=== PATIENT | female | born 1955 | race Caucasian/White ===

== ENCOUNTER 2021-03-10 14:44 | Inpatient (IN) ==
[2021-03-10] MEDS ORDERED: KETOROLAC 15 MG/ML VIAL IV ONE (15:40)
[2021-03-10] MEDS ORDERED: ONDANSETRON 4 MG/2 ML VIAL IV ONE (15:40)
[2021-03-10] MEDS ORDERED: 0.9 % SODIUM CHLORIDE 500 ML IV ONE ×2 (15:40→17:48)
[2021-03-10 16:44] LABS: POC Creatinine 6.2 mg/dL (0.6-1.2)
--- NOTE | 2021-03-10 17:37 | Emergency Department Note ---
HPI General Chief complaint: Shortness of Breath/Dyspnea Stated complaint: shortness of breath Time Seen by Provider: 03/10/21 15:05 Source: EMS Mode of arrival: EMS Limitations: no limitations History of Present Illness HPI Narrative: Narrative: Patient is a 65-year-old female who presented with chief complaint of multiple complaints. Patient states that over the past few days she has been having nausea, vomiting, and diarrhea. She then started having some body aches, chills, abdominal pain, and was feeling worse so she called 911 to be come in and be evaluated. She otherwise denies no significant symptoms such as fever, headache, neck stiffness, chest pain, shortness of breath, hematemesis, changes in bowel movements or urinary symptoms. Related Data Allergies Allergy/AdvReac Type Severity Reaction Status Date / Time No Known Drug Allergies Allergy Verified 03/10/21 14:51 Review of Systems ROS ROS Narrative: Narrative: All systems ED: reviewed and negative except as stated. [facility] Narrative Patient History Narrative: Narrative: Medical/Surgical/Family History All Active Problems (Updated 03/10/21 @ 20:14 by Huber Wang DO) Acute kidney failure (Acute) Elevated white blood cell count (Acute) Nausea and vomiting (Acute) Diarrhea (Acute) Acute dehydration (Acute) Social History Smoking Status: Never smoker Exam Narrative Narrative: Narrative: Patient is laying in bed, talking normally and appropriately. She does not appear to be in acute discomfort or distress. Patient is obese. General Limitations: no limitations Head Head: Present atraumatic and normocephalic Eye Eye: Present normal appearance, PERRL and EOMI; Absent scleral icterus and conjunctival injection ENT ENT: Present normal oropharynx and mucous membranes moist Neck Neck: Present full ROM and trachea midline; Absent tenderness and lymphadenopathy Chest Chest: Present symmetric chest wall rise Respiratory Respiratory: Present normal lung sounds bilaterally; Absent respiratory distress, rales/crackles, wheezes, stridor and accessory muscle use Cardiovascular Cardiovascular: Present regular rate and normal rhythm; Absent systolic murmur and diastolic murmur Adbominal Abdominal: Present soft; Absent tenderness, guarding, rebound, rigidity and mass Extremities Extremities: Absent pedal edema, pretibial edema and calf tenderness Back Back: Absent CVA tenderness (R), CVA tenderness (L) and spinous process tenderness Neurological Neurological: Present alert and oriented X3 Psychiatric Psychiatric: Present normal affect and normal mood Skin Skin: Present warm (WNL) and dry Course Vital Signs Vital signs: Vital Signs Pulse Rate 78 03/10/21 14:48 Respiratory Rate 18 03/10/21 14:48 Blood Pressure 123/53 03/10/21 14:48 Pulse Oximetry (%) 100 03/10/21 14:48 Pulse Rate 83 03/10/21 18:17 Respiratory Rate 14 03/10/21 17:34 Blood Pressure 93/50 03/10/21 16:17 Pulse Oximetry (%) 97 03/10/21 18:17 [facility] Narrative Medical decision making narrative: Narrative: Patient is a 65-year-old female who presented with chief complaint of nausea, vomiting, diarrhea. Vital signs here were stable, with no hypotension or significant tachycardia. Initial blood work showed a elevated creatinine of 6, and white blood count of 24,000. Subsequent fluids were started, and larger work-up was performed. Blood cultures and urine were ordered for possible sepsis, though my suspicion overall is low for severe sepsis. Chest x-ray was nonacute, abdominal CT scan was negative for any significant acute findings. Patient was started antibiotics due to the elevated white blood count and no definitive infectious findings, though her symptoms do sound to be viral in nature. Covid swab was negative. Due to the elevated creatinine, I did discuss the case with nephrology who stated the patient likely did not need emergent dialysis given the normal potassium and no other significant findings. He recommended admission and IV fluid hydration. I discussed case the hospitalist, who agrees the plan of admission at this time. Patient is agreeable to the plan and has no further concerns or questions. Of note, she states that she does not have any history of chronic kidney failure that she is aware of, and states that the last time she peed was yesterday morning. Lab Data Result diagrams: 03/10/21 16:25 03/10/21 16:25 Labs: Lab Results 03/10/21 03/10/21 03/10/21 Range/Units 16:25 16:25 16:25 WBC 24.6 H (4.5-11.0) K/mcL RBC 4.52 (3.59-5.38) M/mcL Hgb 12.9 (11.2-15.7) g/dL Hct 41.2 (34.1-44.9) % MCV 91.2 (80.0-100.0) fL MCH 28.5 (26.0-34.0) pg MCHC 31.3 (31.0-36.0) g/dL RDW 14.2 (11.5-14.5) % Plt Count 276 (140-440) K/mcL MPV 10.0 (7.4-10.4) fL Neut % (Auto) 70.6 (38.0-78.0) % Lymph % (Auto) 17.1 (15.5-49.0) % Cloud % (Auto) 12.0 (1.0-12.0) % Eos % (Auto) 0.1 (0.0-7.0) % Baso % (Auto) 0.2 (0.0-2.0) % Lymph # (Auto) 4.20 (1.50-4.80) K/mcL Cloud # (Auto) 2.94 H (0.10-0.90) K/mcL Eos # (Auto) 0.02 (0.00-0.70) K/mcL Baso # (Auto) 0.06 (0.00-0.30) K/mcL Absolute Neutrophils 17.33 H (1.80-8.00) K/mcL Sodium 132 L (133-145) mmol/L Potassium 4.6 (3.3-5.1) mmol/L Chloride 94 L (96-108) mmol/L Carbon Dioxide 17 L (22-30) mmol/L Anion Gap 21.0 H (8.0-16.0) BUN 57 H (8-23) mg/dL Creatinine 5.3 H* (0.6-1.1) mg/dL POC Creatinine 6.2 H* (0.6-1.2) mg/dL GFR Calculation 8 Glucose 103 (70-105) mg/dL Calcium 9.7 (8.6-10.4) mg/dL Total Bilirubin 0.5 (0.1-1.0) mg/dL AST 32 H (<32) U/L ALT 22 (<40) U/L Alkaline Phosphatase 164 H (39-117) U/L Troponin T 0.01 (<0.03) ng/mL C-Reactive Protein (0.03-0.80) mg/dL Total Protein 7.7 (5.9-8.4) gm/dL Albumin 4.0 (3.2-5.2) gm/dL Globulin 3.7 (2.2-3.7) gm/dL Albumin/Globulin Ratio 1.1 (1.0-2.3) Lipase 24 (7-60) U/L 03/10/21 Range/Units 16:25 WBC (4.5-11.0) K/mcL RBC (3.59-5.38) M/mcL Hgb (11.2-15.7) g/dL Hct (34.1-44.9) % MCV (80.0-100.0) fL MCH (26.0-34.0) pg MCHC (31.0-36.0) g/dL RDW (11.5-14.5) % Plt Count (140-440) K/mcL MPV (7.4-10.4) fL Neut % (Auto) (38.0-78.0) % Lymph % (Auto) (15.5-49.0) % Cloud % (Auto) (1.0-12.0) % Eos % (Auto) (0.0-7.0) % Baso % (Auto) (0.0-2.0) % Lymph # (Auto) (1.50-4.80) K/mcL Cloud # (Auto) (0.10-0.90) K/mcL Eos # (Auto) (0.00-0.70) K/mcL Baso # (Auto) (0.00-0.30) K/mcL Absolute Neutrophils (1.80-8.00) K/mcL Sodium (133-145) mmol/L Potassium (3.3-5.1) mmol/L Chloride (96-108) mmol/L Carbon Dioxide (22-30) mmol/L Anion Gap (8.0-16.0) BUN (8-23) mg/dL Creatinine (0.6-1.1) mg/dL POC Creatinine (0.6-1.2) mg/dL GFR Calculation Glucose (70-105) mg/dL Calcium (8.6-10.4) mg/dL Total Bilirubin (0.1-1.0) mg/dL AST (<32) U/L ALT (<40) U/L Alkaline Phosphatase (39-117) U/L Troponin T (<0.03) ng/mL C-Reactive Protein 4.60 H (0.03-0.80) mg/dL Total Protein (5.9-8.4) gm/dL Albumin (3.2-5.2) gm/dL Globulin (2.2-3.7) gm/dL Albumin/Globulin Ratio (1.0-2.3) Lipase (7-60) U/L ED POC Tests ED POC Tests: MELQUIADES - SARS Antigen Negative CC TIME Critical Care Time Critical Care Time: Yes Total Critical Care Time: 60 Discharge Plan Patient/Caregiver Discharge Instructions Pt seen by [employer]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
[2021-03-10 17:47] LABS: Basophils # (Auto) 0.06 K/mcL (0.00-0.30); Basophils % (Auto) 0.2 % (0.0-2.0); Eosinophils # (Auto) 0.02 K/mcL (0.00-0.70); Eosinophils % (Auto) 0.1 % (0.0-7.0); Hematocrit 41.2 % (34.1-44.9); Hemoglobin 12.9 g/dL (11.2-15.7); Lymphocytes % (Auto) 17.1 % (15.5-49.0); Mean Cell Volume 91.2 fL (80.0-100.0); Mean Corpuscular HGB Conc 31.3 g/dL (31.0-36.0); Monocytes # (Auto) 2.94 K/mcL (0.10-0.90); Neutrophils % (Auto) 70.6 % (38.0-78.0); Platelet Count 276 K/mcL (140-440); RBC 4.52 M/mcL (3.59-5.38); Red Cell Distribution Width 14.2 % (11.5-14.5); WBC 24.6 K/mcL (4.5-11.0)
[2021-03-10] MEDS ORDERED: morphine 4 MG/ML VIAL IV ONE (17:47)
--- NOTE | 2021-03-10 17:57 | Cat Scan Report ---
CLINICAL INFORMATION: Abdominal pain COMPARISON: None. TECHNIQUE: 0.625 mm helical slices were obtained from the mid heart through the subtrochanteric regions. Following reconstruction, 2.5 mm sagittal, coronal and axial reformatted images were processed and reviewed at bone and soft tissue windows.The exam was performed using radiation dose optimization techniques including, but not limited to, automated exposure control, adjustment of the mA and/or kV according to patient size and use of iterative reconstruction technique. FINDINGS: The lung bases mild bronchitis with patchy atelectasis and/or fibrosis in both inferior lower lobes.. No effusions. The visualized heart is grossly normal. Abdominal images show multiple small stones within the gallbladder. The gallbladder is otherwise normal no wall thickening the chest cholecystitis. Common bile duct is normal caliber 6 mm. The noncontrasted liver, the lesion both kidneys, adrenal glands, spleen, pancreas and aorta, including aortic branches, are normal in size, configuration and attenuation without focal lesion. There is no free air, free fluid or adenopathy. Pelvic images show normal noncontrasted urinary bladder. Uterus and both ovaries are normal in size, configuration and attenuation for age. The stomach, small bowel and appendix region are grossly normal. Multiple sigmoid diverticuli appreciated. The remaining large bowel is normal Bone windows show no osseous abnormality. IMPRESSION: 1. Cholelithiasis. Gallbladder and bile ducts otherwise normal. 2. Sigmoid diverticulosis, but no evidence of diverticulitis. 3. Small periumbilical hernia containing only mesenteric fat. 4. Chronic bronchitis or asthma with atelectasis in both inferior lower lobes Interpreted and Authenticated by: Mati Johnston 03/10/21
[2021-03-10 18:11] LABS: ALT/SGPT 22 U/L (<40); AST/SGOT 32 U/L (<32); Albumin/Globulin Ratio 1.1 (1.0-2.3); Alkaline Phosphatase 164 U/L (39-117); Bilirubin,Total 0.5 mg/dL (0.1-1.0); Blood Urea Nitrogen 57 mg/dL (8-23); Calcium 9.7 mg/dL (8.6-10.4); Carbon Dioxide 17 mmol/L (22-30); Chloride 94 mmol/L (96-108); Globulin 3.7 gm/dL (2.2-3.7); Glomerular Filtration Rate 8; Glucose 103 mg/dL (70-105)
[2021-03-10] MEDS ORDERED: PIPERACILLIN SODIUM/TAZOBACTAM 4.5 GM in DEXTROSE 5% IN WATER 50 ML IV ONE (18:37)
[2021-03-10] MEDS ORDERED: VANCOMYCIN 1,500 MG in 0.9 % SODIUM CHLORIDE 500 ML IV ONE (18:37)
--- NOTE | 2021-03-10 19:23 | XRay Report ---
CLINICAL INFORMATION: vomiting COMPARISON: None. FINDINGS: Heart size, mediastinum and pulmonary vessels are normal. Small bibasilar infiltrates noted. No effusions. Bones soft tissues normal IMPRESSION: Small bibasilar infiltrates. Interpreted and Authenticated by: Mati Johnston 03/10/21
[2021-03-10] MEDS ORDERED: PIPERACILLIN SODIUM/TAZOBACTAM 3.375 GM in DEXTROSE 5% IN WATER 50 ML IV ONE (20:00)
[2021-03-10] MEDS ORDERED: ONDANSETRON 4 MG/2 ML VIAL IV PRN ×2 (20:02→20:49)
[2021-03-10 20:32] LABS: Lymphocytes % 14 % (15-49); Monocytes % (Manual) 11 % (1-12); Platelet Estimate NORMAL (Normal); RBC Morphology NORMAL (Normal); Segmented Neutrophils % 75 % (38-78)
[2021-03-10] MEDS ORDERED: POTASSIUM CHLORIDE 20 MEQ TABLET PO PRN ×2 (20:49)
[2021-03-10] MEDS ORDERED: SENNOSIDES 1 TABLET PO PRN (20:49)
[2021-03-10] MEDS ORDERED: IPRATROPIUM/ALBUTEROL 3 ML AMPUL.NEB NEB PRN (20:49)
[2021-03-10] MEDS ORDERED: POTASSIUM CHLORIDE 40 MEQ in DEXTROSE 5% IN WATER 500 ML IV PRN (20:49)
[2021-03-10] MEDS ORDERED: POLYETHYLENE GLYCOL 3350 17 GM PACKET PO PRN (20:49)
[2021-03-10] MEDS ORDERED: morphine 4 MG/ML VIAL IV PRN (20:49)
[2021-03-10] MEDS ORDERED: MAGNESIUM SULFATE 2 GM/50 ML BAG IV PRN (20:49)
[2021-03-10] MEDS ORDERED: METOCLOPRAMIDE 10 MG/2 ML VIAL IV PRN (20:49)
[2021-03-10] MEDS ORDERED: ACETAMINOPHEN 325 MG TABLET PO PRN (20:49)
--- NOTE | 2021-03-10 20:49 | Internal Med History&Physical ---
HPI History of Present Illness Patient information: Note initiated : 03/10/21 at 8:45 pm Service Date, if different from initiated Date: [] Patient: Elicia Ricks 65 y/o F admitted on for shortness of breath. Chief Complaint: [] History of present illness: Ms. Ricks is a 65 year old F Presents the ED with complaints of nausea vomiting diarrhea body aches stomachache chills. Generalized weakness and fatigue. Has been feeling ill for the past couple days. Her urine output has waxed and waned over the past few days to where it is it will be very little then it seems normal and then very little again. In the ED she is evaluated labs and imaging CT abdomen pelvis showed no acute pathology and atelectasis on chest imaging. She had a leukocytosis of 24 but was afebrile. On chemistry she had a creatinine of 5.3 and a BUN of 57. Case is discussed with roving can tender. Patient is chronic pain both back and joint pain intake 800 mg of ibuprofen 3-5 times a day and has been doing this for several months. Review of Systems: Pertinent positives as above denies headache/fever/chills/chest pain/cough/dyspnea. Remaining 10 point review of system reviewed negative PFSH PFSH All Active Problems (Updated 03/10/21 @ 20:14 by Huber Wang DO) Acute kidney failure (Acute) Elevated white blood cell count (Acute) Nausea and vomiting (Acute) Diarrhea (Acute) Acute dehydration (Acute) MEDS/ALLERGIES Home Medications and Allergies Allergies Allergy/AdvReac Type Severity Reaction Status Date / Time No Known Drug Allergies Allergy Verified 03/10/21 14:51 EXAM Constitutional Vitals: Pulse Resp BP Pulse Ox 87 14 150/126 100 03/10/21 20:22 03/10/21 17:34 03/10/21 20:22 03/10/21 20:22 Exam: General: Alert, Awake, No acute Distress, obese Eyes/N/T: EOMI, PERRL, dry MM Head/Neck: neck supple, normocephalic atraumatic CV: RRR, No murmurs, normal s1/s2 Pulm: Clear b/l, no wheezing/rhonchi/rales Abd: soft, nontender, +BS x4 Ext: no clubbing/cyanosis, mild chronic b/l LE edema Neuro: Alert, no focal deficits, moves all extremities, CN 2-12 grossly intact, symmetrical strength b/l upper/lower, sensations intact b/l upper/lower Skin: warm/dry DATA Data Completed and Pending Labs: Labs from last 24 hours 03/10/21 03/10/21 03/10/21 19:30 16:25 16:25 WBC RBC Hgb Hct MCV MCH MCHC RDW Plt Count MPV Neut % (Auto) Lymph % (Auto) [place] % (Auto) Eos % (Auto) Baso % (Auto) Lymph # (Auto) [place] # (Auto) Eos # (Auto) Baso # (Auto) Seg Neutrophils % 75 Lymphocytes % 14 L Monocytes % (Manual) 11 Absolute Neutrophils Platelet Estimate Normal RBC Morphology Normal Sodium Potassium Chloride Carbon Dioxide Anion Gap BUN Creatinine POC Creatinine GFR Calculation Glucose Calcium Total Bilirubin AST ALT Alkaline Phosphatase Troponin T C-Reactive Protein 4.60 H Total Protein Albumin Globulin Albumin/Globulin Ratio Lipase Procalcitonin 0.42 H 03/10/21 03/10/21 03/10/21 16:25 16:25 16:25 WBC 24.6 H RBC 4.52 Hgb 12.9 Hct 41.2 MCV 91.2 MCH 28.5 MCHC 31.3 RDW 14.2 Plt Count 276 MPV 10.0 Neut % (Auto) 70.6 Lymph % (Auto) 17.1 [place] % (Auto) 12.0 Eos % (Auto) 0.1 Baso % (Auto) 0.2 Lymph # (Auto) 4.20 [place] # (Auto) 2.94 H Eos # (Auto) 0.02 Baso # (Auto) 0.06 Seg Neutrophils % Lymphocytes % Monocytes % (Manual) Absolute Neutrophils 17.33 H Platelet Estimate RBC Morphology Sodium 132 L Potassium 4.6 Chloride 94 L Carbon Dioxide 17 L Anion Gap 21.0 H BUN 57 H Creatinine 5.3 H* POC Creatinine 6.2 H* GFR Calculation 8 Glucose 103 Calcium 9.7 Total Bilirubin 0.5 AST 32 H ALT 22 Alkaline Phosphatase 164 H Troponin T 0.01 C-Reactive Protein Total Protein 7.7 Albumin 4.0 Globulin 3.7 Albumin/Globulin Ratio 1.1 Lipase 24 Procalcitonin A/P Narrative A/P Narrative: A: *KWABENA (unknown baseline): likely 2/2 excessive Ibuprofen use -CT abd/pelv unremarkable *Metabolic acidosis: 2/2 above *Hyponatremia, mild: 2/2 above *Atelectasis: *Leukocytosis: Reactive versus infectious (no source): -afebrile, no bandemia *COPD/Asthma (not on home O2): *chronic back/joint pain & neuropathy: *HTN/HLD: *Hypothyroidism: *GERD: *Obesity: P: -IVF -Nephrology consult -monitor UOP -Hold home ACEI for kwabena, d/c home NSAIDS -check man diff and PCT -cont home IH's -Obtain clarify home medications -PT/OT -ppx: Heparin / home ppi full code Time Spent With Patient Time: Total time spent is greater than 50% in coordination of care (as documented) at patient's floor/unit and/or counseling patient:
--- NOTE | 2021-03-10 21:07 | Nephrology Consult Note ---
HPI Data of Consult Patient: new to practice Consult date: 03/10/21 Requesting physician: Huber Wang Primary Care Provider: Jennifer Clayton Consult Narrative Chief complaint: Nausea Reason for consult: Acute kidney injury History of present illness: Elicia Ricks is a 65-year-old female with hypertension, asthma, osteoarthritis presented to ED for nausea, vomiting, and diarrhea followed by body aches, chills, abdominal pain for a few days. In ED, her labs were significant for serum creatinine of 5.3 and WBC of 24.6. She is being admitted. Baseline serum creatinine is not known. Nephrology consultation was requested for acute kidney injury. cc:: CC: Constitutional Constitutional: Present fatigue and weakness EENT Nose, mouth and throat: Absent nasal discharge and sore throat Cardiovascular Cardiovascular: Absent chest pain and palpatations Respiratory Respiratory: Absent dyspnea and wheezing Gastrointestinal Gastrointestinal: Present abdominal pain, diarrhea, nausea and vomiting Genitourinary Genitourinary: Absent dysuria and hematuria Musculoskeletal Musculoskeletal: Present arthralgias (chronic) Integumentary Integumentary: Absent rash and wounds Neurological Neurological: Absent confusion Psychiatric Psychiatric: Absent anxiety and panic attacks Hematologic/Lymphatic Hematologic/Lymphatic: Absent easy bleeding and easy bruising Allergic/Immunologic Allergic/Immunologic: Absent tongue swelling and uticaria PFSH PFSH All Active Problems (Updated 03/10/21 @ 21:05 by Valeria Colvin MD) Metabolic acidosis (Acute) Hyponatremia (Acute) Acute kidney injury with acute tubular necrosis (Acute) Acute kidney failure (Acute) Elevated white blood cell count (Acute) Nausea and vomiting (Acute) Diarrhea (Acute) Acute dehydration (Acute) MEDS/ALLERGIES Home Medications and Allergies Home Medications Medication Instructions Recorded Confirmed Type albuterol sulfate 2.5 mg PRN PRN 03/10/21 03/10/21 History atorvastatin 40 mg PO HS 03/10/21 03/10/21 History budesonide-formoterol [Symbicort] 2 puff INHALATION HS 03/10/21 03/10/21 History budesonide-formoterol [Symbicort] 2 puff INHALATION HS 03/10/21 03/10/21 History cetirizine 10 mg PO HS 03/10/21 03/10/21 History gabapentin 600 mg PO BID 03/10/21 03/10/21 History ibuprofen 800 mg PO TID 03/10/21 03/10/21 History levothyroxine 50 mcg PO DAILY 03/10/21 03/10/21 History lisinopril 40 mg PO HS 03/10/21 03/10/21 History loratadine 10 mg PO HS 03/10/21 03/10/21 History meclizine 25 mg PO HS 03/10/21 03/10/21 History methocarbamol 750 mg PO TID 03/10/21 03/10/21 History montelukast 10 mg PO HS 03/10/21 03/10/21 History omeprazole 20 mg PO BID 03/10/21 03/10/21 History Allergies Allergy/AdvReac Type Severity Reaction Status Date / Time No Known Drug Allergies Allergy Verified 03/10/21 14:51 Physical Examination Vital Signs Vital signs: Pulse Resp BP Pulse Ox 87 14 150/126 100 03/10/21 20:22 03/10/21 17:34 03/10/21 20:22 03/10/21 20:22 General Appearance General appearance: appears started age, obese and fatigue EENT EENT: mucous membranes dry Neck Neck: no JVD Respiratory Respiratory: clear Cardiovascular Cardiology: no edema, regular rate and regular rhythm Gastrointestinal Gastrointestinal: no tenderness and obese Integumentary Integumentary: no rash Neurologic Neurologic: no focal deficit and alert and oriented x3 Musculoskeletal Musculoskeletal: no deformities Psychiatric Psychiatric: mood/affect appropriate and cooperative Results Lab Results Result Diagrams: 03/10/21 16:25 03/10/21 16:25 Lab results: Most recent lab results Calcium 9.7 mg/dL (8.6-10.4) 03/10/21 16:25 A/P Assessment and plan (1) Acute kidney injury with acute tubular necrosis: Assessment and plan: Elicia Ricks is a 65-year-old female with hypertension, asthma, osteoarthritis presented to ED for nausea, vomiting, and diarrhea followed by body aches, chills, abdominal pain for a few days. In ED, her labs were significant for serum creatinine of 5.3 and WBC of 24.6. She is being admitted. Baseline serum creatinine is not known. Nephrology consultation was requested for acute kidney injury. Acute kidney injury, suspected acute tubular necrosis associated with NSAID (Ibuprofen), FILIPE (Lisinopril), decreased renal perfusion with dehydration (nausea, vomiting, and diarrhea) with metabolic acidosis and hyponatremia, present on arrival. There is no recent history of IV contrast administration. She has been using NSAIDs almost daily due to osteoarthritis. She noticed decreased urine output on the past couple of days. Intravascular volume depletion is likely and being treated with IV fluid resuscitation. Work up: CT Abdomen and Pelvis without contrast on 03/10/21: Kidneys normal. Progress: Urine output: <100 ml in ED so far. Metabolic acidosis. Hyponatremia. Recommendations/Plan: No urgent acute hemodialysis need. Work up with urinalysis and random urine sodium. Avoid NSAIDs, nephrotoxic medications and IV contrast. Hold FILIPE. Monitor BMP and urine output. Consider Sodium Bicarbonate 150 mEq in 1L D5W at 100 ml/hour for metabolic acidosis. Status: Acute (2) Hyponatremia: Status: Acute (3) Metabolic acidosis: Status: Acute Time Spent With Patient Time: Total time spent is greater than 50% in coordination of care (as documented) at patient's floor/unit and/or counseling patient:
[2021-03-10] MEDS: HEPARIN 5,000 UNIT/ML VIAL SQ SCH (22:05)
[2021-03-10] MEDS: 0.9 % SODIUM CHLORIDE 1,000 ML IV SCH (22:05)
[2021-03-10] MEDS: 0.9 % SODIUM CHLORIDE 10 ML SYRINGE IV SCH ×2 (22:05)
[2021-03-10] MEDS ORDERED: HEPARIN 5,000 UNIT/ML VIAL ONE (22:07)
[2021-03-10 23:13] LABS: Appearance,Urine CLOUDY (Clear); Bacteria,Urine FEW /hpf (0); Bilirubin,Urine Negative (Negative); Calcium Oxalate Crystals,Urine FEW /hpf; Color,Urine YELLOW; Culture Indicated,Urine yes; Glucose,Urine (UA) Negative (Negative); Ketones,Urine Negative (Negative); Leukocyte Esterase,Urine 250 /ug (Negative); Mucus,Urine MOD /hpf; Nitrate,Urine Negative (Negative); Protein,Urine 30 mg/dL (Negative); Specific Gravity,Urine 1.021 (1.000-1.035); Urine Hyaline Cast 3 /lph (0-2); Urine RBC 4 /hpf (0-3); Urine Squamous Epithelial Cell 1 /hpf (0-4); Urine WBC 24 /hpf (0-4); Urobilinogen,Urine Negative
[2021-03-11] MEDS: 0.9 % SODIUM CHLORIDE 10 ML SYRINGE IV SCH ×6 (05:14→20:57)
[2021-03-11] MEDS: 0.9 % SODIUM CHLORIDE 1,000 ML IV SCH ×3 (06:07→20:56)
--- NOTE | 2021-03-11 07:49 | Internal Med Progress Note ---
SUBJECTIVE Subjective Patient information: Note initiated : 03/11/21 at 7:47 am Service Date, if different from initiated Date: [] Patient: Elicia Ricks a 65 y/o F admitted on 03/10/21 for shortness of breath. Chief Complaint: [] Interval history: History of present illness: Ms. Ricks is a 65 year old F Presents the ED with complaints of nausea vomiting diarrhea body aches stomachache chills. Generalized weakness and fatigue. Has been feeling ill for the past couple days. Her urine output has waxed and waned over the past few days to where it is it will be very little then it seems normal and then very little again. In the ED she is evaluated labs and imaging CT abdomen pelvis showed no acute pathology and atelectasis on chest imaging. She had a leukocytosis of 24 but was afebrile. On chemistry she had a creatinine of 5.3 and a BUN of 57. 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 Patient is chronic pain both back and joint pain intake 800 mg of ibuprofen 3-5 times a day and has been doing this for several months. 03/11 Patient feeling a little bit better. She states her urination output seems to be slowly improving. Urinalysis findings concerning for infection, started Rocephin and waiting cultures. Awaiting follow-up chemistry. Review of Systems: denies headache/fever/chills/nausea/vomiting/chest or abdominal pain/cough/dys pnea. Otherwise see above. Constitutional Vitals: Vital Signs Temp Pulse Resp BP Pulse Ox 97.2 F 82 16 85/46 92 03/11/21 04:00 03/11/21 04:00 03/11/21 04:00 03/11/21 04:00 03/11/21 04:00 Period Temp Pulse Resp BP Sys/Garza Pulse Ox Last 24 Hr 97.2 F-98.1 F 78-87 - 85-150/46-126 92-100 Intake and Output 03/10/21 03/11/21 03/11/21 21:59 05:59 13:59 Intake Total 6426 643 4626 Output Total 75 225 Balance 1475 15 1000 Weight 141.096 kg Intake & Output: Intake & Output 03/10/21 03/11/21 03/11/21 21:59 05:59 13:59 Intake Total 4610 139 8485 Output Total 75 225 Balance 1475 15 1000 Weight 141.096 kg Intake: IV 1550 1000 Sodium Chloride 0.9% 1,000 ml @ 1000 125 mls/hr IV .Q8H [facility] Rx#: [id number] Sodium Chloride 0.9% 500 ml @ 1000 Wide Open IV BOLUS ONE Rx#: [id number] Zosyn 3.375 gm In Dextrose 5% 50 in Water 50 ml @ 100 mls/hr IV ONCE ONE Rx#:[id number] Vancomycin 1,500 mg In Sodium 500 Chloride 0.9% 500 ml @ 333.3 mls/hr IV ONCE ONE Rx#: [id number] Oral 240 Output: Urine Catheter Amount 75 225 Other: Urine Appearance Clear Cloudy Uretheral ([place]) Clear Urine Color Light Alisha Dark Yellow Uretheral ([place]) Bright Yellow Urine Odor Normal Exam: General: Alert, Awake, No acute Distress, obese Eyes/N/T: EOMI, Head/Neck: neck supple, CV: RRR, No murmurs, Pulm: Clear b/l, no wheezing/rhonchi/rales Abd: soft, nontender, +BS x4 Ext: no clubbing/cyanosis, mild chronic b/l LE edema Neuro: Alert, no focal deficits, moves all extremities, Skin: warm/dry OBJ DATA Labs CBC & Chem 7: 03/11/21 06:15 03/10/21 16:25 Labs: Abnormal Lab Results 03/10/21 03/10/21 03/10/21 21:05 19:30 16:25 WBC [place] # (Auto) Lymphocytes % Absolute Neutrophils Sodium Chloride Carbon Dioxide Anion Gap BUN Creatinine POC Creatinine AST Alkaline Phosphatase C-Reactive Protein 4.60 H Procalcitonin 0.42 H TSH Urine Appearance Cloudy A Urine Protein 30 A Ur Leukocyte Esterase 250 A Urine RBC 4 H Urine WBC 24 H Calcium Oxalate Crystal Few A Urine Bacteria Few A Hyaline Casts 3 H Urine Mucus Mod A 03/10/21 03/10/21 03/10/21 16:25 16:25 16:25 WBC 24.6 H [place] # (Auto) 2.94 H Lymphocytes % 14 L Absolute Neutrophils 17.33 H Sodium 132 L Chloride 94 L Carbon Dioxide 17 L Anion Gap 21.0 H BUN 57 H Creatinine 5.3 H* POC Creatinine 6.2 H* AST 32 H Alkaline Phosphatase 164 H C-Reactive Protein Procalcitonin TSH Urine Appearance Urine Protein Ur Leukocyte Esterase Urine RBC Urine WBC Calcium Oxalate Crystal Urine Bacteria Hyaline Casts Urine Mucus 03/10/21 16:24 WBC [place] # (Auto) Lymphocytes % Absolute Neutrophils Sodium Chloride Carbon Dioxide Anion Gap BUN Creatinine POC Creatinine AST Alkaline Phosphatase C-Reactive Protein Procalcitonin TSH 5.18 H Urine Appearance Urine Protein Ur Leukocyte Esterase Urine RBC Urine WBC Calcium Oxalate Crystal Urine Bacteria Hyaline Casts Urine Mucus Meds: Medications Acetaminophen (Acetaminophen 325 Mg Tablet) 650 mg PO Q6HP PRN PRN Reason: PAIN/FEVER > 101 Hydrocodone Bitart/Acetaminophen (Hydrocodone/Apap 5/325mg Tablet) 1 tab PO Q4HP PRN PRN Reason: PAIN LEVEL 3-6 Albuterol/Ipratropium (Ipratropium/Albuterol 3 Ml Ampul.Neb) 3 ml NEB Q4HP PRN PRN Reason: Shortness Of Breath Heparin Sodium (Porcine) (Heparin 5,000 Unit/Ml Vial) 5,000 unit SQ Q12 [facility] Last Admin: 03/10/21 22:05 Dose: 5,000 unit Documented by: Potassium Chloride 40 meq/ (Dextrose) 520 mls @ 130 mls/hr IV UD PRN PRN Reason: Potassium < 3 Magnesium Sulfate (Magnesium Sulfate) 2 gm in 50 mls @ 50 mls/hr IV UD PRN PRN Reason: Magnesium </= 1.6 Sodium Chloride (Sodium Chloride 0.9%) 1,000 mls @ 125 mls/hr IV .Q8H [facility] Stop: 03/11/21 12:59 Last Admin: 03/11/21 06:07 Dose: 125 mls/hr Documented by: Metoclopramide HCl (Metoclopramide 10 Mg/2 Ml Vial) 10 mg IV Q6HP PRN PRN Reason: Nausea And Vomiting Morphine Sulfate (Morphine 4 Mg/Ml Vial) 0 mg IV Q3HP PRN PRN Reason: Pain Ondansetron HCl (Ondansetron 4 Mg/2 Ml Vial) 4 mg IV Q6HP PRN PRN Reason: Nausea And Vomiting Last Admin: 03/10/21 23:06 Dose: 4 mg Documented by: Ondansetron HCl (Ondansetron 4 Mg/2 Ml Vial) 4 mg IV Q4HP PRN PRN Reason: Nausea And Vomiting Pantoprazole Sodium (Pantoprazole 40 Mg Tablet) 40 mg PO QAMAC LINDA Polyethylene Glycol (Polyethylene Glycol 3350 17 Gm Packet) 17 gm PO DAILYP PRN PRN Reason: Constipation Potassium Chloride (Potassium Chloride 20 Meq Tablet) 40 meq PO UD PRN PRN Reason: Potssium is 3-3.5 Potassium Chloride (Potassium Chloride 20 Meq Tablet) 40 meq PO UD PRN PRN Reason: Potassium < 3 Senna (Sennosides 1 Tablet) 2 tab PO DAILYP PRN PRN Reason: Constipation Sodium Chloride (0.9 % Sodium Chloride 10 Ml Syringe) 10 ml IV Q8 [facility] Last Admin: 03/11/21 05:14 Dose: Not Given Documented by: Sodium Chloride (0.9 % Sodium Chloride 10 Ml Syringe) 10 ml IV Q8 [facility] Last Admin: 03/11/21 05:14 Dose: Not Given Documented by: A/P Narrative A/P Narrative: A: *KWABENA (unknown baseline): likely 2/2 excessive Ibuprofen use -CT abd/pelv unremarkable *Metabolic acidosis: 2/2 above *Hyponatremia, mild: 2/2 above *Atelectasis: *Leukocytosis: Reactive versus infectious (no source): -afebrile, no bandemia *possible UTI: *COPD/Asthma (not on home O2): *chronic back/joint pain & neuropathy: *HTN/HLD: *Hypothyroidism: *GERD: *Obesity: P: -IVF -Nephrology following -monitor UOP -Hold home ACEI for kwabena, d/c home NSAIDS -rocephin pending UC -cont home IH's, IS -PT/OT -ppx: Heparin / home ppi full code Time Spent With Patient Time: Total time spent is greater than 50% in coordination of care (as documented) at patient's floor/unit and/or counseling patient:
[2021-03-11] MEDS: PANTOPRAZOLE 40 MG TABLET PO SCH (07:54)
[2021-03-11 08:06] LABS: Hematocrit 35.6 % (34.1-44.9); Mean Cell Volume 95.4 fL (80.0-100.0); Mean Corpuscular HGB Conc 30.9 g/dL (31.0-36.0); Mean Platelet Volume 10.1 fL (7.4-10.4); Platelet Count 197 K/mcL (140-440); RBC 3.73 M/mcL (3.59-5.38); Red Cell Distribution Width 14.3 % (11.5-14.5); WBC 16.7 K/mcL (4.5-11.0)
[2021-03-11 08:30] LABS: Eosinophils % (Manual) 3 % (0-7); Lymphocytes % 19 % (15-49); Monocytes % (Manual) 7 % (1-12); Platelet Estimate NORMAL (Normal); RBC Morphology NORMAL (Normal); Segmented Neutrophils % 71 % (38-78)
[2021-03-11] MEDS: cefTRIAXone 1 GM VIAL IV SCH (08:45)
[2021-03-11] MEDS: HEPARIN 5,000 UNIT/ML VIAL SQ SCH ×2 (08:45→20:56)
[2021-03-11] MEDS: METHOCARBAMOL 750 MG TABLET PO SCH ×3 (08:46→20:57)
[2021-03-11] MEDS: GABAPENTIN 300 MG CAPSULE PO SCH ×2 (08:46→20:57)
[2021-03-11] MEDS: LEVOTHYROXINE 50 MCG TABLET PO SCH (08:46)
[2021-03-11 08:56] LABS: ALT/SGPT 16 U/L (<40); AST/SGOT 25 U/L (<32); Albumin 2.9 gm/dL (3.2-5.2); Albumin/Globulin Ratio 0.9 (1.0-2.3); Alkaline Phosphatase 129 U/L (39-117); Bilirubin,Direct < 0.2 mg/dL (0-0.3); Bilirubin,Total 0.3 mg/dL (0.1-1.0); Blood Urea Nitrogen 61 mg/dL (8-23); Calcium 8.1 mg/dL (8.6-10.4); Carbon Dioxide 15 mmol/L (22-30); Chloride 102 mmol/L (96-108); Globulin 3.2 gm/dL (2.2-3.7); Glomerular Filtration Rate 9; Glucose 106 mg/dL (70-105); Lactate Dehydrogenase 258 U/L (135-225); Phosphorous 6.2 mg/dL (2.5-4.5); Triglycerides 170 mg/dL (<150)
--- NOTE | 2021-03-11 09:06 | Nephrology Progress Note ---
SUBJECTIVE Subjective Patient information: Note initiated : 03/11/21 at 9:03 am Patient: Elicia Ricks 65 y/o F admitted on 03/10/21 for shortness of breath. Chief Complaint: Abdominal pain Pertinent ROS: Weakness Abdominal pain Casanova catheter No edema No shortness of breath Constitutional Vitals: Vital Signs Temp Pulse Resp BP Pulse Ox 97.2 F 82 16 85/46 92 03/11/21 04:00 03/11/21 04:00 03/11/21 04:00 03/11/21 04:00 03/11/21 04:00 Period Temp Pulse Resp BP Sys/Garza Pulse Ox Last 24 Hr 97.2 F-98.1 F 78-87 - 85-150/46-126 92-100 Intake and Output 03/10/21 03/11/21 03/11/21 21:59 05:59 13:59 Intake Total 0676 694 4773 Output Total 75 225 Balance 1475 15 1000 Weight 311 lb 1 oz Intake & Output: Intake & Output 03/10/21 03/11/21 03/11/21 21:59 05:59 13:59 Intake Total 5049 337 8556 Output Total 75 225 Balance 1475 15 1000 Weight 311 lb 1 oz Intake: IV 1550 1000 Sodium Chloride 0.9% 1,000 ml @ 1000 125 mls/hr IV .Q8H [facility] Rx#: [id number] Sodium Chloride 0.9% 500 ml @ 1000 Wide Open IV BOLUS ONE Rx#: [id number] Zosyn 3.375 gm In Dextrose 5% 50 in Water 50 ml @ 100 mls/hr IV ONCE ONE Rx#:[id number] Vancomycin 1,500 mg In Sodium 500 Chloride 0.9% 500 ml @ 333.3 mls/hr IV ONCE ONE Rx#: [id number] Oral 240 Output: Urine Catheter Amount 75 225 Other: Urine Appearance Clear Cloudy Uretheral ([place]) Clear Urine Color Light Alisha Dark Yellow Uretheral ([place]) Bright Yellow Urine Odor Normal General appearance: cooperative, no acute distress and obese Head Head exam: Present normal inspection Eye Eye exam: Present normal appearance ENT ENT exam: Present mucous membranes moist Respiratory Respiratory exam: Absent respiratory distress Cardiovascular Cardiovascular exam: Present normal rate and rhythm GI/Abdominal GI/Abdominal exam: Present soft Extremities Exam Extremities exam: Absent joint swelling and pedal edema Neurological Exam Neurological exam: Present alert and oriented X3 Psychiatric Psychiatric exam: Present normal affect and normal mood Skin Skin exam: Present warm; Absent rash A/P Assessment and plan (1) Acute kidney injury with acute tubular necrosis: Assessment and plan: Elicia Ricks is a 65-year-old female with hypertension, asthma, osteoarthritis presented to ED for nausea, vomiting, and diarrhea followed by body aches, chills, abdominal pain for a few days. In ED, her labs were significant for serum creatinine of 5.3 and WBC of 24.6. She is being admitted. Baseline serum creatinine is not known. Nephrology consultation was requested for acute kidney injury. Acute kidney injury, suspected acute tubular necrosis associated with NSAID (Ibuprofen), FILIPE (Lisinopril), decreased renal perfusion with dehydration (nausea, vomiting, and diarrhea) with metabolic acidosis and hyponatremia, present on arrival. There is no recent history of IV contrast administration. She has been using NSAIDs almost daily due to osteoarthritis. She noticed decreased urine output on the past couple of days. Intravascular volume depletion is likely and being treated with IV fluid resuscitation. Work up: Urinalysis on 03/11/21: Yellow, Cloudy, pH 5.0, SG 1.021, protein 30, blood 0.2, leukocyte esterase 250, urine WBC 24, random urine sodium 44, urine culture pending. CT Abdomen and Pelvis without contrast on 03/10/21: Kidneys normal. Progress: Serum creatinine decreased from 5.3 to 4.7 in the past 14 hours. Baseline serum creatinine is not known. Urine output: 300 ml reported in the past 14 hours. Metabolic acidosis, worse. Hyponatremia, resolved. No fluid overload. No uremic symptoms. Recommendations/Plan: No urgent acute hemodialysis need. Work up with urinalysis and random urine sodium. Avoid NSAIDs, nephrotoxic medications and IV contrast. Hold FILIPE. Monitor BMP and urine output. Sodium Bicarbonate 650 mg three times daily for metabolic acidosis. Status: Acute (2) Hyponatremia: Status: Acute (3) Metabolic acidosis: Status: Acute Time Spent With Patient Time: Total time spent is greater than 50% in coordination of care (as documented) at patient's floor/unit and/or counseling patient:
[2021-03-11] MEDS: SODIUM BICARBONATE 650 MG TABLET PO SCH ×2 (15:23→20:57)
[2021-03-11] MEDS ORDERED: SIMETHICONE 80 MG TAB.CHEW CHEWED PRN (16:48)
[2021-03-11] MEDS: ATORVASTATIN 40 MG TABLET PO SCH (20:57)
[2021-03-11] MEDS: Budesonide-Formoterol [Symbicort] 160-4.5 mcg Inhaler INH SCH (20:57)
[2021-03-11] MEDS: MECLIZINE 25 MG TABLET PO SCH (20:57)
[2021-03-11] MEDS: MONTELUKAST 10 MG TABLET PO SCH (20:57)
[2021-03-12] MEDS: 0.9 % SODIUM CHLORIDE 1,000 ML IV SCH (00:32)
[2021-03-12] MEDS: 0.9 % SODIUM CHLORIDE 10 ML SYRINGE IV SCH ×6 (05:15→21:23)
[2021-03-12] MEDS: PANTOPRAZOLE 40 MG TABLET PO SCH (07:46)
[2021-03-12 09:09] LABS: Basophils # (Auto) 0.05 K/mcL (0.00-0.30); Basophils % (Auto) 0.4 % (0.0-2.0); Eosinophils # (Auto) 0.32 K/mcL (0.00-0.70); Eosinophils % (Auto) 2.5 % (0.0-7.0); Hematocrit 32.9 % (34.1-44.9); Hemoglobin 10.1 g/dL (11.2-15.7); Lymphocytes # (Auto) 2.64 K/mcL (1.50-4.80); Lymphocytes % (Auto) 20.6 % (15.5-49.0); Mean Cell Volume 94.3 fL (80.0-100.0); Mean Corpuscular HGB Conc 30.7 g/dL (31.0-36.0); Mean Platelet Volume 10.5 fL (7.4-10.4); Monocytes # (Auto) 1.47 K/mcL (0.10-0.90); Monocytes % (Auto) 11.5 % (1.0-12.0); Platelet Count 199 K/mcL (140-440); RBC 3.49 M/mcL (3.59-5.38); Red Cell Distribution Width 14.4 % (11.5-14.5); WBC 12.8 K/mcL (4.5-11.0)
[2021-03-12] MEDS: cefTRIAXone 1 GM VIAL IV SCH (09:09)
[2021-03-12] MEDS: HEPARIN 5,000 UNIT/ML VIAL SQ SCH ×2 (09:09→21:22)
[2021-03-12] MEDS: GABAPENTIN 300 MG CAPSULE PO SCH ×2 (09:10→21:22)
[2021-03-12] MEDS: METHOCARBAMOL 750 MG TABLET PO SCH ×3 (09:10→21:22)
[2021-03-12] MEDS: HYDROcodone/APAP 5/325MG TABLET PO PRN ×2 (09:10→15:55)
[2021-03-12] MEDS: LEVOTHYROXINE 50 MCG TABLET PO SCH (09:11)
[2021-03-12] MEDS: SODIUM BICARBONATE 650 MG TABLET PO SCH ×3 (09:11→21:22)
[2021-03-12 09:28] LABS: ALT/SGPT 15 U/L (<40); AST/SGOT 20 U/L (<32); Albumin/Globulin Ratio 1.1 (1.0-2.3); Alkaline Phosphatase 132 U/L (39-117); Bilirubin,Total 0.2 mg/dL (0.1-1.0); Blood Urea Nitrogen 51 mg/dL (8-23); Calcium 7.8 mg/dL (8.6-10.4); Carbon Dioxide 20 mmol/L (22-30); Chloride 104 mmol/L (96-108); Globulin 2.8 gm/dL (2.2-3.7); Glomerular Filtration Rate 21; Glucose 99 mg/dL (70-105)
--- NOTE | 2021-03-12 10:21 | Nephrology Progress Note ---
SUBJECTIVE Subjective Patient information: Note initiated : 03/12/21 at 10:17 am Service Date, if different from initiated Date: [] Patient: Elicia Ricks 65 y/o F admitted on 03/10/21 for shortness of breath. Chief Complaint: [weakness] Constitutional Vitals: Vital Signs Temp Pulse Resp BP Pulse Ox 37.1 C 84 16 97/54 90 03/12/21 07:57 03/12/21 07:57 03/12/21 07:57 03/12/21 07:57 03/12/21 07:57 Period Temp Pulse Resp BP Sys/Garza Pulse Ox Last 24 Hr 36.4 C-37.1 C 64-92 16-20 97-118/52-65 90-98 Intake and Output 03/11/21 03/12/21 03/12/21 21:59 05:59 13:59 Intake Total 1350 1480 1040 Output Total 400 450 Balance 950 1030 1040 Weight 143.987 kg Physicial Exam: General appearance: cooperative, no acute distress and obese Head Head exam: Present normal inspection Eye Eye exam: Present normal appearance ENT ENT exam: Present mucous membranes moist Respiratory Respiratory exam: Absent respiratory distress Cardiovascular Cardiovascular exam: Present normal rate and rhythm GI/Abdominal GI/Abdominal exam: Present soft Extremities Exam Extremities exam: Absent joint swelling and pedal edema Neurological Exam Neurological exam: Present alert and oriented X3 Psychiatric Psychiatric exam: Present normal affect and normal mood Skin Skin exam: Present warm; Absent rash Laboratory Tests 03/12/21 06:01 Sodium 136 Potassium 4.6 Chloride 104 Carbon Dioxide 20 L BUN 51 H Creatinine 2.4 H GFR Calculation 21 Glucose 99 Calcium 7.8 L Albumin 3.0 L Serum Creatinine Intake & Output: Intake & Output 03/11/21 03/12/21 03/12/21 21:59 05:59 13:59 Intake Total 1350 1480 1040 Output Total 400 450 Balance 950 1030 1040 Weight 143.987 kg Intake: IV 1000 1000 Sodium Chloride 0.9% 1,000 ml @ 1000 1000 100 mls/hr IV .Q10H [facility] Rx#: [id number] Oral [id number] Output: Urine Catheter Amount 400 450 Other: Meal Breakfast Percent of Meal Consumed 100% Feeding Ability Independent Urine Appearance Cloudy Cloudy Urine Color Dark Yellow Bright Yellow Uretheral ([place]) Bright Yellow Urine Odor Normal Normal A/P Assessment and plan (1) Acute kidney failure: Status: Acute Comment: Has labs from 2 months ago at [facility] and says Dr Clayton said nothing about abnormal kidney Fx Heavy NSAIDS for years due to knee pain Lisinopril for BP Decreased po intake and nausea/vomiting/diarrhea leading to GI volume loss Pre-existing muscle pains and aches and weakness suggests prior viral syndrome Received J&J Vax for SARS CV2 and screening test negative Qualifiers: Acute renal failure type: unspecified Qualified Code(s): N17.9 - Acute kidney failure, unspecified (2) Metabolic acidosis: Status: Acute Comment: Suspect underlying RTA from NSAIDS/TIN or GI bicarb loss from diarrhea and replacement with saline Improved Narrative A/P Narrative: 1. No ACEi or NSAIDS 2. Stop IVF and monitor 3. D/C [place] and ambulate 4. Old chem 7 from [facility] clinic would help 5. Check CPK and procalcitonin - minimize ABx if procalcitonin favorable Time Spent With Patient Time: Total time spent is greater than 50% in coordination of care (as documented) at patient's floor/unit and/or counseling patient: Total time spent with greater than 50% in coordination of care (as documented) at patient's floor/unit and/or counseling patient:: 25 - 35 minutes
--- NOTE | 2021-03-12 15:03 | Internal Med Progress Note ---
SUBJECTIVE Subjective Patient information: Note initiated : 03/12/21 at 3:02 pm Service Date, if different from initiated Date: [] Patient: Elicia Ricks a 65 y/o F admitted on 03/10/21 for shortness of breath. Chief Complaint: [acute kidney injury] Interval history: History of present illness: Ms. Ricks is a 65 year old F Presents the ED with complaints of nausea vomiting diarrhea body aches stomachache chills. Generalized weakness and fatigue. Has been feeling ill for the past couple days. Her urine output has waxed and waned over the past few days to where it is it will be very little then it seems normal and then very little again. In the ED she is evaluated labs and imaging CT abdomen pelvis showed no acute pathology and atelectasis on chest imaging. She had a leukocytosis of 24 but was afebrile. On chemistry she had a creatinine of 5.3 and a BUN of 57. 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 Patient is chronic pain both back and joint pain intake 800 mg of ibuprofen 3-5 times a day and has been doing this for several months. 03/11 Patient feeling a little bit better. She states her urination output seems to be slowly improving. Urinalysis findings concerning for infection, started Rocephin and waiting cultures. Awaiting follow-up chemistry. 03/12: Serum creatinine improved from 4.7-2.4 overnight. Afebrile overnight. Blood and urine cultures no growth to date. Patient is otherwise doing fine and denies having any pain or discomfort. Patient is tolerating room air. Constitutional Vitals: Vital Signs Temp Pulse Resp BP Pulse Ox 36.9 C 81 18 99/57 91 03/12/21 12:00 03/12/21 12:00 03/12/21 12:00 03/12/21 12:00 03/12/21 12:00 Period Temp Pulse Resp BP Sys/Garza Pulse Ox Last 24 Hr 36.4 C-37.1 C 74-92 16-20 97-113/52-64 90-98 Intake and Output 03/12/21 03/12/21 03/12/21 05:59 13:59 21:59 Intake Total 1480 2040 Output Total 450 Balance 1030 2040 Intake & Output: Intake & Output 03/12/21 03/12/21 03/12/21 05:59 13:59 21:59 Intake Total 1480 2040 Output Total 450 Balance 1030 2040 Intake: IV 1000 1000 Sodium Chloride 0.9% 1,000 ml @ 1000 1000 100 mls/hr IV .Q10H [facility] Rx#: [id number] Oral 480 1040 Output: Urine Catheter Amount 450 Other: Meal Lunch Percent of Meal Consumed 100% Feeding Ability Independent Urine Appearance Cloudy Urine Color Bright Yellow Urine Odor Normal General appearance: cooperative, morbidly obese and no acute distress Head Head exam: Present atraumatic and normocephalic Eye Eye exam: Present EOMI and PERRL ENT ENT exam: Present mucous membranes moist, normal exam and normal external ear exam Neck Neck exam: Present normal inspection; Absent lymphadenopathy, tenderness and thyromegaly Respiratory Respiratory exam: Absent accessory muscle use, respiratory distress and wheezes Cardiovascular Cardiovascular exam: Present normal rate and rhythm; Absent JVD GI/Abdominal GI/Abdominal exam: Present normal bowel sounds and soft; Absent organomegaly and tenderness Extremities Exam Extremities exam: Present full ROM, normal capillary refill and normal inspection; Absent tenderness Neurological Exam Neurological exam: Present alert, CN II-XII intact and oriented X3; Absent motor sensory deficit Psychiatric Psychiatric exam: Present normal affect and normal mood; Absent anxious and depressed Skin Skin exam: Present dry and intact OBJ DATA Labs CBC & Chem 7: 03/12/21 06:01 03/12/21 06:01 Labs: Abnormal Lab Results 03/12/21 03/12/21 03/11/21 06:01 06:01 06:15 WBC 12.8 H RBC 3.49 L Hgb 10.1 L Hct 32.9 L MCHC 30.7 L MPV 10.5 H [place] # (Auto) 1.47 H Lymphocytes % Absolute Neutrophils 8.32 H Sodium Chloride Carbon Dioxide 20 L Anion Gap BUN 51 H Creatinine 2.4 H POC Creatinine Glucose Uric Acid Calcium 7.8 L Phosphorus AST Alkaline Phosphatase 132 H Lactate Dehydrogenase C-Reactive Protein Total Protein 5.8 L Albumin 3.0 L Albumin/Globulin Ratio Triglycerides Procalcitonin 0.27 H TSH Urine Appearance Urine Protein Ur Leukocyte Esterase Urine RBC Urine WBC Calcium Oxalate Crystal Urine Bacteria Hyaline Casts Urine Mucus 03/11/21 03/11/21 03/10/21 06:15 06:15 21:05 WBC 16.7 H RBC Hgb 11.0 L Hct MCHC 30.9 L MPV [place] # (Auto) Lymphocytes % Absolute Neutrophils Sodium Chloride Carbon Dioxide 15 L Anion Gap 19.0 H BUN 61 H Creatinine 4.7 H POC Creatinine Glucose 106 H Uric Acid 11.0 H Calcium 8.1 L Phosphorus 6.2 H* AST Alkaline Phosphatase 129 H Lactate Dehydrogenase 258 H C-Reactive Protein 5.90 H Total Protein Albumin 2.9 L Albumin/Globulin Ratio 0.9 L Triglycerides 170 H Procalcitonin TSH Urine Appearance Cloudy A Urine Protein 30 A Ur Leukocyte Esterase 250 A Urine RBC 4 H Urine WBC 24 H Calcium Oxalate Crystal Few A Urine Bacteria Few A Hyaline Casts 3 H Urine Mucus Mod A 03/10/21 03/10/21 03/10/21 19:30 16:25 16:25 WBC RBC Hgb Hct MCHC MPV [place] # (Auto) Lymphocytes % 14 L Absolute Neutrophils Sodium Chloride Carbon Dioxide Anion Gap BUN Creatinine POC Creatinine Glucose Uric Acid Calcium Phosphorus AST Alkaline Phosphatase Lactate Dehydrogenase C-Reactive Protein 4.60 H Total Protein Albumin Albumin/Globulin Ratio Triglycerides Procalcitonin 0.42 H TSH Urine Appearance Urine Protein Ur Leukocyte Esterase Urine RBC Urine WBC Calcium Oxalate Crystal Urine Bacteria Hyaline Casts Urine Mucus 03/10/21 03/10/21 03/10/21 16:25 16:25 16:24 WBC 24.6 H RBC Hgb Hct MCHC MPV [place] # (Auto) 2.94 H Lymphocytes % Absolute Neutrophils 17.33 H Sodium 132 L Chloride 94 L Carbon Dioxide 17 L Anion Gap 21.0 H BUN 57 H Creatinine 5.3 H* POC Creatinine 6.2 H* Glucose Uric Acid Calcium Phosphorus AST 32 H Alkaline Phosphatase 164 H Lactate Dehydrogenase C-Reactive Protein Total Protein Albumin Albumin/Globulin Ratio Triglycerides Procalcitonin TSH 5.18 H Urine Appearance Urine Protein Ur Leukocyte Esterase Urine RBC Urine WBC Calcium Oxalate Crystal Urine Bacteria Hyaline Casts Urine Mucus Meds: Medications Acetaminophen (Acetaminophen 325 Mg Tablet) 650 mg PO Q6HP PRN PRN Reason: PAIN/FEVER > 101 Hydrocodone Bitart/Acetaminophen (Hydrocodone/Apap 5/325mg Tablet) 1 tab PO Q4HP PRN PRN Reason: PAIN LEVEL 3-6 Last Admin: 03/12/21 09:10 Dose: 1 tab Documented by: Albuterol/Ipratropium (Ipratropium/Albuterol 3 Ml Ampul.Neb) 3 ml NEB Q4HP PRN PRN Reason: Shortness Of Breath Atorvastatin Calcium (Atorvastatin 40 Mg Tablet) [address] [facility] Last Admin: 03/11/21 20:57 Dose: 40 mg Documented by: Ceftriaxone Sodium (Ceftriaxone 1 Gm Vial) 1 gm IV Q24H [facility]; Protocol Last Admin: 03/12/21 09:09 Dose: 1 gm Documented by: Gabapentin (Gabapentin 300 Mg Capsule) 600 mg PO BID [facility] Last Admin: 03/12/21 09:10 Dose: 600 mg Documented by: Heparin Sodium (Porcine) (Heparin 5,000 Unit/Ml Vial) 5,000 unit SQ Q12 [facility] Last Admin: 03/12/21 09:09 Dose: 5,000 unit Documented by: Potassium Chloride 40 meq/ (Dextrose) 520 mls @ 130 mls/hr IV UD PRN PRN Reason: Potassium < 3 Magnesium Sulfate (Magnesium Sulfate) 2 gm in 50 mls @ 50 mls/hr IV UD PRN PRN Reason: Magnesium </= 1.6 Levothyroxine Sodium (Levothyroxine 50 Mcg Tablet) 50 mcg PO DAILY [facility] Last Admin: 03/12/21 09:11 Dose: 50 mcg Documented by: Meclizine HCl (Meclizine 25 Mg Tablet) [address] [facility] Last Admin: 03/11/21 20:57 Dose: 25 mg Documented by: Methocarbamol (Methocarbamol 750 Mg Tablet) 750 mg PO TID [facility] Last Admin: 03/12/21 09:10 Dose: 750 mg Documented by: Metoclopramide HCl (Metoclopramide 10 Mg/2 Ml Vial) 10 mg IV Q6HP PRN PRN Reason: Nausea And Vomiting Montelukast Sodium (Montelukast 10 Mg Tablet) [address] [facility] Last Admin: 03/11/21 20:57 Dose: 10 mg Documented by: Morphine Sulfate (Morphine 4 Mg/Ml Vial) 0 mg IV Q3HP PRN PRN Reason: Pain Last Admin: 03/12/21 05:21 Dose: 3 mg Documented by: Ondansetron HCl (Ondansetron 4 Mg/2 Ml Vial) 4 mg IV Q6HP PRN PRN Reason: Nausea And Vomiting Last Admin: 03/10/21 23:06 Dose: 4 mg Documented by: Ondansetron HCl (Ondansetron 4 Mg/2 Ml Vial) 4 mg IV Q4HP PRN PRN Reason: Nausea And Vomiting Pantoprazole Sodium (Pantoprazole 40 Mg Tablet) 40 mg PO QAMAC [facility] Last Admin: 03/12/21 07:46 Dose: 40 mg Documented by: Budesonide- Formoterol [ Symbicort] 160-4.5 Mcg Inhaler 2 dose INH HS [facility] Last Admin: 03/11/21 20:57 Dose: Not Given Documented by: Polyethylene Glycol (Polyethylene Glycol 3350 17 Gm Packet) 17 gm PO DAILYP PRN PRN Reason: Constipation Potassium Chloride (Potassium Chloride 20 Meq Tablet) 40 meq PO UD PRN PRN Reason: Potssium is 3-3.5 Potassium Chloride (Potassium Chloride 20 Meq Tablet) 40 meq PO UD PRN PRN Reason: Potassium < 3 Senna (Sennosides 1 Tablet) 2 tab PO DAILYP PRN PRN Reason: Constipation Simethicone (Simethicone 80 Mg Tab.Chew) 80 mg CHEWED QIDP PRN PRN Reason: Dyspepsia Last Admin: 03/11/21 20:57 Dose: 80 mg Documented by: Sodium Bicarbonate (Sodium Bicarbonate 650 Mg Tablet) 650 mg PO TID [facility] Last Admin: 03/12/21 09:11 Dose: 650 mg Documented by: Sodium Chloride (0.9 % Sodium Chloride 10 Ml Syringe) 10 ml IV Q8 [facility] Last Admin: 03/12/21 05:15 Dose: Not Given Documented by: Sodium Chloride (0.9 % Sodium Chloride 10 Ml Syringe) 10 ml IV Q8 [facility] Last Admin: 03/12/21 05:16 Dose: Not Given Documented by: A/P Assessment and plan (1) Acute kidney failure: Status: Acute Comment: Has labs from 2 months ago at [facility] and says Dr Clayton said nothing about abnormal kidney Fx Heavy NSAIDS for years due to knee pain Lisinopril for BP Decreased po intake and nausea/vomiting/diarrhea leading to GI volume loss Pre-existing muscle pains and aches and weakness suggests prior viral syndrome Received J&J Vax for SARS CV2 and screening test negative Qualifiers: Acute renal failure type: unspecified Qualified Code(s): N17.9 - Acute kidney failure, unspecified (2) UTI (urinary tract infection): Status: Acute (3) Hypothyroidism: Status: Acute (4) COPD (chronic obstructive pulmonary disease): Status: Acute (5) Essential (primary) hypertension: Status: Acute (6) Mixed dyslipidemia: Status: Acute (7) GERD (gastroesophageal reflux disease): Status: Acute Narrative A/P Narrative: Assessment and plan: 1. Acute kidney injury: Secondary to NSAID overdose at home DC any NSAID from home regiment Hold FILIPE inhibitor or ARB from home regiment Neurologist consulted, recommendation appreciated Since her kidney functions are improving, it is okay to see not the patient today Repeat CMP in the morning to trend kidney functions If kidney functions continue to improve, it is okay to discharge patient home by tomorrow 2. Urinary tract infections: Blood culture no growth to date Urine culture no growth to date Rocephin CBC in the morning to trend WBC Tylenol as needed fever 3. Mixed dyslipidemia: Continue statin therapy 4. Hypothyroidism: Continue thyroid replacement therapy 5. Stable COPD: Singulair Symbicort DuoNeb nebulizer as needed wheezing or shortness of breath 6. GERD: Continue oral Protonix from home regimen #7 history of essential hypertension's: Borderline hypotensive at the time being, will hold FILIPE inhibitor or ARB from home regiment for the time being GI prophylaxis: Continue oral Protonix at home regimen DVT prophylaxis: Heparin CODE STATUS: Full code Prognosis: Stable Dispositions: Inpatient MedSurg; If kidney functions continue to improve, it is okay to discharge patient home by tomorrow Time Spent With Patient Time: Total time spent is greater than 50% in coordination of care (as documented) at patient's floor/unit and/or counseling patient: Total time spent with greater than 50% in coordination of care (as documented) at patient's floor/unit and/or counseling patient:: 25 - 35 minutes
[2021-03-12] MEDS: MONTELUKAST 10 MG TABLET PO SCH (21:22)
[2021-03-12] MEDS: ATORVASTATIN 40 MG TABLET PO SCH (21:22)
[2021-03-12] MEDS: MECLIZINE 25 MG TABLET PO SCH (21:22)
[2021-03-12] MEDS: NYSTATIN POWDER BOTTLE 15GM TOPICAL SCH (21:59)
[2021-03-12] MEDS: Budesonide-Formoterol [Symbicort] 160-4.5 mcg Inhaler INH SCH (21:59)
[2021-03-13] MEDS: PANTOPRAZOLE 40 MG TABLET PO SCH (07:00)
[2021-03-13] MEDS: 0.9 % SODIUM CHLORIDE 10 ML SYRINGE IV SCH ×4 (07:01→14:07)
[2021-03-13 07:05] LABS: Basophils # (Auto) 0.05 K/mcL (0.00-0.30); Basophils % (Auto) 0.5 % (0.0-2.0); Eosinophils # (Auto) 0.38 K/mcL (0.00-0.70); Eosinophils % (Auto) 4.1 % (0.0-7.0); Hematocrit 33.2 % (34.1-44.9); Hemoglobin 10.5 g/dL (11.2-15.7); Lymphocytes # (Auto) 2.54 K/mcL (1.50-4.80); Lymphocytes % (Auto) 27.7 % (15.5-49.0); Mean Cell Volume 93.5 fL (80.0-100.0); Mean Corpuscular HGB Conc 31.6 g/dL (31.0-36.0); Mean Platelet Volume 10.2 fL (7.4-10.4); Monocytes # (Auto) 1.16 K/mcL (0.10-0.90); Monocytes % (Auto) 12.6 % (1.0-12.0); Neutrophils % (Auto) 55.1 % (38.0-78.0); Platelet Count 201 K/mcL (140-440); RBC 3.55 M/mcL (3.59-5.38); WBC 9.2 K/mcL (4.5-11.0)
[2021-03-13 07:42] LABS: ALT/SGPT 15 U/L (<40); AST/SGOT 17 U/L (<32); Alkaline Phosphatase 111 U/L (39-117); Bilirubin,Total < 0.2 mg/dL (0.1-1.0); Blood Urea Nitrogen 26 mg/dL (8-23); Calcium 8.2 mg/dL (8.6-10.4); Carbon Dioxide 22 mmol/L (22-30); Chloride 108 mmol/L (96-108); Globulin 3.1 gm/dL (2.2-3.7); Glomerular Filtration Rate 53; Glucose 99 mg/dL (70-105)
--- NOTE | 2021-03-13 09:12 | Nephrology Progress Note ---
SUBJECTIVE Subjective Patient information: Note initiated : 03/13/21 at 9:10 am Service Date, if different from initiated Date: [] Patient: Elicia Ricks 65 y/o F admitted on 03/10/21 for shortness of breath. Chief Complaint: [Weakness] Viral syndrome with body aches, nausea, vomiting and diarrhea with daily NSAIDs and ACEi = Acute Prerenal Azotemia. Recovered GFR with IVF and cessation of ACEi and NSAIDs. CO2 improved and K in normal range No objection to discharge. Vital Signs Temp Pulse Resp BP BP BP Pulse Ox 03/13/21 07:51 36.3 C 80 18 115/54 91 03/13/21 04:47 36.9 C 82 18 127/61 90 03/12/21 23:23 36.6 C 82 20 107/57 91 03/12/21 20:00 36.6 C 92 H 18 125/63 90 03/12/21 15:56 37.0 C 83 16 101/56 91 03/12/21 12:00 36.9 C 81 18 99/57 91 Intake and Output 03/12/21 03/13/21 03/13/21 21:59 05:59 13:59 Intake Total 240 Output Total 2150 300 600 Balance -1910 -300 -600 Intake: Oral 240 Output: Urine Catheter Amount 2000 Void Amount 150 300 600 Other: Urine Appearance Clear Clear Urine Color Bright Yellow Bright Yellow Bright Yellow Stool Size Large Moderate Stool Color Green Brown Black Stool Consistency Liquid Loose Watery Loose # Bowel Movements 2 1 Weight 146.782 kg Laboratory Tests 03/13/21 05:10 Sodium 141 Potassium 4.9 Chloride 108 Carbon Dioxide 22 BUN 26 H Creatinine 1.1 GFR Calculation 53 Glucose 99 Calcium 8.2 L Current Medications Acetaminophen (Acetaminophen 325 Mg Tablet) 650 mg PO Q6HP PRN PRN Reason: PAIN/FEVER > 101 Last Admin: 03/13/21 07:42 Dose: 650 mg Documented by: Hydrocodone Bitart/Acetaminophen (Hydrocodone/Apap 5/325mg Tablet) 1 tab PO Q4HP PRN PRN Reason: PAIN LEVEL 3-6 Last Admin: 03/12/21 15:55 Dose: 1 tab Documented by: Albuterol/Ipratropium (Ipratropium/Albuterol 3 Ml Ampul.Neb) 3 ml NEB Q4HP PRN PRN Reason: Shortness Of Breath Atorvastatin Calcium (Atorvastatin 40 Mg Tablet) 40 mg PO [facility] Last Admin: 03/12/21 21:22 Dose: 40 mg Documented by: Ceftriaxone Sodium (Ceftriaxone 1 Gm Vial) 1 gm IV Q24H [facility]; Protocol Last Admin: 03/12/21 09:09 Dose: 1 gm Documented by: Gabapentin (Gabapentin 300 Mg Capsule) 600 mg PO BID [facility] Last Admin: 03/12/21 21:22 Dose: 600 mg Documented by: Heparin Sodium (Porcine) (Heparin 5,000 Unit/Ml Vial) 5,000 unit SQ Q12 [facility] Last Admin: 03/12/21 21:22 Dose: 5,000 unit Documented by: Potassium Chloride 40 meq/ (Dextrose) 520 mls @ 130 mls/hr IV UD PRN PRN Reason: Potassium < 3 Magnesium Sulfate (Magnesium Sulfate) 2 gm in 50 mls @ 50 mls/hr IV UD PRN PRN Reason: Magnesium </= 1.6 Levothyroxine Sodium (Levothyroxine 50 Mcg Tablet) 50 mcg PO DAILY [facility] Last Admin: 03/12/21 09:11 Dose: 50 mcg Documented by: Meclizine HCl (Meclizine 25 Mg Tablet) 25 mg PO [facility] Last Admin: 03/12/21 21:22 Dose: 25 mg Documented by: Methocarbamol (Methocarbamol 750 Mg Tablet) 750 mg PO TID [facility] Last Admin: 03/12/21 21:22 Dose: 750 mg Documented by: Metoclopramide HCl (Metoclopramide 10 Mg/2 Ml Vial) 10 mg IV Q6HP PRN PRN Reason: Nausea And Vomiting Montelukast Sodium (Montelukast 10 Mg Tablet) 10 mg PO [facility] Last Admin: 03/12/21 21:22 Dose: 10 mg Documented by: Morphine Sulfate (Morphine 4 Mg/Ml Vial) 0 mg IV Q3HP PRN PRN Reason: Pain Last Admin: 03/12/21 05:21 Dose: 3 mg Documented by: Nystatin (Nystatin Powder Bottle 15gm) 1 dose TOPICAL BID [facility] Last Admin: 03/12/21 21:59 Dose: 1 dose Documented by: Ondansetron HCl (Ondansetron 4 Mg/2 Ml Vial) 4 mg IV Q6HP PRN PRN Reason: Nausea And Vomiting Last Admin: 03/10/21 23:06 Dose: 4 mg Documented by: Ondansetron HCl (Ondansetron 4 Mg/2 Ml Vial) 4 mg IV Q4HP PRN PRN Reason: Nausea And Vomiting Pantoprazole Sodium (Pantoprazole 40 Mg Tablet) 40 mg PO QAMAC [facility] Last Admin: 03/13/21 07:00 Dose: 40 mg Documented by: Budesonide- Formoterol [ Symbicort] 160-4.5 Mcg Inhaler 2 dose INH HS [facility] Last Admin: 03/12/21 21:59 Dose: Not Given Documented by: Polyethylene Glycol (Polyethylene Glycol 3350 17 Gm Packet) 17 gm PO DAILYP PRN PRN Reason: Constipation Potassium Chloride (Potassium Chloride 20 Meq Tablet) 40 meq PO UD PRN PRN Reason: Potssium is 3-3.5 Potassium Chloride (Potassium Chloride 20 Meq Tablet) 40 meq PO UD PRN PRN Reason: Potassium < 3 Senna (Sennosides 1 Tablet) 2 tab PO DAILYP PRN PRN Reason: Constipation Simethicone (Simethicone 80 Mg Tab.Chew) 80 mg CHEWED QIDP PRN PRN Reason: Dyspepsia Last Admin: 03/11/21 20:57 Dose: 80 mg Documented by: Sodium Bicarbonate (Sodium Bicarbonate 650 Mg Tablet) 650 mg PO TID [facility] Last Admin: 03/12/21 21:22 Dose: 650 mg Documented by: Sodium Chloride (0.9 % Sodium Chloride 10 Ml Syringe) 10 ml IV Q8 [facility] Last Admin: 03/13/21 07:01 Dose: Not Given Documented by: Sodium Chloride (0.9 % Sodium Chloride 10 Ml Syringe) 10 ml IV Q8 [facility] Last Admin: 03/13/21 07:01 Dose: 10 ml Documented by: Constitutional Vitals: Vital Signs Temp Pulse Resp BP Pulse Ox 36.3 C 80 18 115/54 91 03/13/21 07:51 03/13/21 07:51 03/13/21 07:51 03/13/21 07:51 03/13/21 07:51 Period Temp Pulse Resp BP Sys/Garza Pulse Ox Last 24 Hr 36.3 C-37.0 C 80-92 16-20 99-127/54-63 90-91 Intake and Output 03/12/21 03/13/21 03/13/21 21:59 05:59 13:59 Intake Total 240 Output Total 2150 300 600 Balance -1909 Weight 146.782 kg Intake & Output: Intake & Output 03/12/21 03/13/21 03/13/21 21:59 05:59 13:59 Intake Total 240 Output Total 2150 300 600 Balance -[id number] Weight 146.782 kg Intake: Oral 240 Output: Urine Catheter Amount 2000 Void Amount 150 300 600 Other: Urine Appearance Clear Clear Urine Color Bright Yellow Bright Yellow Bright Yellow Stool Size Large Moderate Stool Color Green Brown Black Stool Consistency Liquid Loose Watery Loose # Bowel Movements 2 1 General appearance: no acute distress and obese Head Head exam: Present normal inspection and normocephalic Eye Eye exam: Present EOMI and PERRL; Absent scleral icterus ENT ENT exam: Present mucous membranes moist Neck Neck exam: Present full ROM; Absent meningismus Respiratory Respiratory exam: Present normal respiratory exam Cardiovascular Cardiovascular exam: Present normal rate and rhythm, RRR, +S1 and +S2; Absent gallop, irregular rhythm, JVD and +S3 GI/Abdominal GI/Abdominal exam: Present normal bowel sounds Neurological Exam Neurological exam: Present alert, CN II-XII intact and oriented X3 Psychiatric Psychiatric exam: Present normal affect and normal mood Skin Skin exam: Present dry A/P Assessment and plan (1) Acute kidney failure: Status: Acute Comment: Has labs from 2 months ago at [facility] and says Dr Clayton said nothing about abnormal kidney Fx Heavy NSAIDS for years due to knee pain Lisinopril for BP Decreased po intake and nausea/vomiting/diarrhea leading to GI volume loss Pre-existing muscle pains and aches and weakness suggests prior viral syndrome Received J&J Vax for SARS CV2 and screening test negative Qualifiers: Acute renal failure type: unspecified Qualified Code(s): N17.9 - Acute kidney failure, unspecified (2) Metabolic acidosis: Status: Acute Comment: Suspect underlying RTA from NSAIDS/TIN or GI bicarb loss from diarrhea and replacement with saline Improved Narrative A/P Narrative: 1. Resolved ARF due to Acute Prerenal azotemia Avoid NSAIDS and ACEi at discharge At this point in time, no need for any antihypertensives While not necessary, if you desire renal follow up, schedule with Dr Colvin in 1 months 2. Stop NaHCO3 and avoid NSAIDS 3. Will sigh off for now Time Spent With Patient Time: Total time spent is greater than 50% in coordination of care (as documented) at patient's floor/unit and/or counseling patient: Total time spent with greater than 50% in coordination of care (as documented) at patient's floor/unit and/or counseling patient:: 15 - 24 minutes
[2021-03-13] MEDS: cefTRIAXone 1 GM VIAL IV SCH (09:55)
[2021-03-13] MEDS: GABAPENTIN 300 MG CAPSULE PO SCH (09:55)
[2021-03-13] MEDS: METHOCARBAMOL 750 MG TABLET PO SCH ×2 (09:55→14:08)
[2021-03-13] MEDS: LEVOTHYROXINE 50 MCG TABLET PO SCH (09:55)
[2021-03-13] MEDS: SODIUM BICARBONATE 650 MG TABLET PO SCH ×2 (09:55→14:07)
[2021-03-13] MEDS: HYDROcodone/APAP 5/325MG TABLET PO PRN ×2 (09:55→14:07)
[2021-03-13] MEDS: HEPARIN 5,000 UNIT/ML VIAL SQ SCH (09:56)
[2021-03-13] MEDS: NYSTATIN POWDER BOTTLE 15GM TOPICAL SCH (09:57)
--- NOTE | 2021-03-13 12:12 | Discharge Summary ---
Discharge Provider Provider Patient information: Note initiated : 03/13/21 at 12:09 pm Service Date, if different from initiated Date: [] Patient: Elicia Ricks a 65 y/o F admitted on 03/10/21 for shortness of breath. Chief Complaint: [acute kidney injury] History of present illness: Ms. Ricks is a 65 year old F Presents the ED with complaints of nausea vomiting diarrhea body aches stomachache chills. Generalized weakness and fatigue. Has been feeling ill for the past couple days. Her urine output has waxed and waned over the past few days to where it is it will be very little then it seems normal and then very little again. In the ED she is evaluated labs and imaging CT abdomen pelvis showed no acute pathology and atelectasis on chest imaging. She had a leukocytosis of 24 but was afebrile. On chemistry she had a creatinine of 5.3 and a BUN of 57. Case is discussed with media relations associate. Patient is chronic pain both back and joint pain intake 800 mg of ibuprofen 3-5 times a day and has been doing this for several months. Date of admission: 03/10/21 21:45 Discharge date: 03/13/21 Primary care physician: Jennifer Clayton Consults: 03/10/21 Consult to Physician [CONS] Stat Comment: Consulting Provider: Zeyad Leblanc Reason For Exam: Physician to Consult Consult to Physician [CONS] Stat Comment: Consulting Provider: Valeria Colvin Reason For Exam: Physician to Consult Discharge Meds Discharge Medications Home Medications albuterol sulfate 2.5 mg PRN PRN 03/10/21 [History Confirmed 03/10/21 Last Taken 03/10/21 09:00] atorvastatin 40 mg PO HS 03/10/21 [History Confirmed 03/10/21 Last Taken 03/09/21 21:00] budesonide-formoterol [Symbicort] 2 puff INHALATION HS 03/10/21 [History Confirmed 03/10/21 Last Taken Unknown] budesonide-formoterol [Symbicort] 2 puff INHALATION HS 03/10/21 [History Confirmed 03/10/21 Last Taken 03/09/21 21:00] cetirizine 10 mg PO HS 03/10/21 [History Confirmed 03/10/21 Last Taken 03/09/21 21:00] gabapentin 600 mg PO BID 03/10/21 [History Confirmed 03/10/21 Last Taken 03/10/21 09:00] levothyroxine 50 mcg PO DAILY 03/10/21 [History Confirmed 03/10/21 Last Taken 03/10/21 09:00] lisinopril 40 mg PO HS 03/10/21 [History Confirmed 03/10/21 Last Taken 03/09/21 21:00] loratadine 10 mg PO HS 03/10/21 [History Confirmed 03/10/21 Last Taken 03/08/21 09:00] meclizine 25 mg PO HS 03/10/21 [History Confirmed 03/10/21 Last Taken 03/09/21 21:00] methocarbamol 750 mg PO TID 03/10/21 [History Confirmed 03/10/21 Last Taken 03/10/21 09:00] montelukast 10 mg PO HS 03/10/21 [History Confirmed 03/10/21 Last Taken 03/09/21 21:00] omeprazole 20 mg PO BID 03/10/21 [History Confirmed 03/10/21 Last Taken 03/09/21 12:00] HYDROcodone/APAP 5/325MG [Irving 5/325Mg] 1 tab PO Q4-6HP PRN #20 tab 03/13/21 [Rx Last Taken Unknown] COURSE Hospital Course Hospital course: Patient was admitted on March 10, 2021 for acute kidney injury secondary to NSAID overdose. NSAIDs as part rest FILIPE inhibitor were held from her home regiment. Aggressive IV fluid infusion as well as daily kidney functions were checked, and by March 13, 2021, her kidney functions went back to her baseline. Patient was also being diagnosed with urinary tract infections based on urine analysis and empiric antibiotics with Rocephin was started. Blood and urine culture remain no growth to date. Patient received a 4-day course of empiric antibiotic therapy. Patient was advised doing fairly well and had reached clinical stability. As such, the decision was made to discharge patient home with instructions to follow-up with her PCP in 2 weeks given to her. All questions were answered prior to patient being physically discharged. Discharge diagnosis: acute kidney injury; urinary tract infection Time Spent with Patient Time attestation: Total time spent providing and/or coordinating discharge services: Patient was admitted on March 10, 2021 for acute kidney injury secondary to NSAID overdose. NSAIDs as part rest FILIPE inhibitor were held from her home regiment. Aggressive IV fluid infusion as well as daily kidney functions were checked, and by March 13, 2021, her kidney functions went back to her baseline. Patient was also being diagnosed with urinary tract infections based on urine analysis and empiric antibiotics with Rocephin was started. Blood and urine culture remain no growth to date. Patient received a 4-day course of empiric antibiotic therapy. Patient was advised doing fairly well and had reached clinical stability. As such, the decision was made to discharge patient home with instructions to follow-up with her PCP in 2 weeks given to her. All questions were answered prior to patient being physically discharged. EXAM Constitutional Vitals: Temp Pulse Resp BP Pulse Ox 36.4 C 76 16 119/58 92 03/13/21 11:18 03/13/21 11:18 03/13/21 11:18 03/13/21 11:18 03/13/21 11:18 General appearance: cooperative and no acute distress Head Head exam: Present atraumatic and normocephalic Eye Eye exam: Present EOMI and PERRL ENT ENT exam: Present mucous membranes moist, normal exam and normal external ear exam Neck Neck exam: Present normal inspection; Absent lymphadenopathy, tenderness and thyromegaly Respiratory Respiratory exam: Absent accessory muscle use, respiratory distress and wheezes Cardiovascular Cardiovascular exam: Present normal rate and rhythm; Absent JVD GI/Abdominal GI/Abdominal exam: Present normal bowel sounds and soft; Absent organomegaly and tenderness Extremities Exam Extremities exam: Present full ROM, normal capillary refill and normal inspection; Absent tenderness Neurological Exam Neurological exam: Present alert, CN II-XII intact and oriented X3; Absent motor sensory deficit Psychiatric Psychiatric exam: Present normal affect and normal mood; Absent anxious and depressed Skin Skin exam: Present dry and intact Discharge Data Data Completed and Pending Labs on day of discharge: Labs from last 24 hours 03/13/21 03/13/21 03/13/21 05:10 05:10 05:10 WBC 9.2 RBC 3.55 L Hgb 10.5 L Hct 33.2 L MCV 93.5 MCH 29.6 MCHC 31.6 RDW 14.0 Plt Count 201 MPV 10.2 Neut % (Auto) 55.1 Lymph % (Auto) 27.7 [place] % (Auto) 12.6 H Eos % (Auto) 4.1 Baso % (Auto) 0.5 Lymph # (Auto) 2.54 [place] # (Auto) 1.16 H Eos # (Auto) 0.38 Baso # (Auto) 0.05 Absolute Neutrophils 5.04 Sodium 141 Potassium 4.9 Chloride 108 Carbon Dioxide 22 Anion Gap 11.0 BUN 26 H Creatinine 1.1 GFR Calculation 53 Glucose 99 Calcium 8.2 L Total Bilirubin < 0.2 AST 17 ALT 15 Alkaline Phosphatase 111 Total Creatine Kinase 83 Total Protein 6.1 Albumin 3.0 L Globulin 3.1 Albumin/Globulin Ratio 1.0 Preliminary micro results at discharge 03/10/21 19:20 Blood Culture - Preliminary Blood 03/10/21 19:15 Blood Culture - Preliminary Blood Discharge Plan Patient/Caregiver Discharge Instructions Activity: increase activity as tolerated Diet: Regular Diet Prescriptions: New Hydrocodone/Apap 5/325mg [Irving 5/325mg] 1 tab PO Q4-6HP PRN (Reason: pain) Qty: 20 RF: 0 Continued budesonide-formoterol [Symbicort] 160-4.5 mcg/actuation HFA aerosol inhaler 2 puff INHALATION HS RF: 0 atorvastatin 40 mg tablet 40 mg PO HS RF: 0 gabapentin 600 mg tablet 600 mg PO BID RF: 0 albuterol sulfate 2.5 mg /3 mL (0.083 %) solution for nebulization 2.5 mg PRN PRN (Reason: Shortness Of Breath) RF: 0 cetirizine 10 mg tablet 10 mg PO HS RF: 0 methocarbamol 750 mg tablet 750 mg PO TID RF: 0 meclizine 25 mg tablet 25 mg PO HS RF: 0 levothyroxine 50 mcg tablet 50 mcg PO DAILY RF: 0 omeprazole 20 mg capsule,delayed release(DR/EC) 20 mg PO BID RF: 0 montelukast 10 mg tablet 10 mg PO HS RF: 0 lisinopril 40 mg tablet 40 mg PO HS RF: 0 loratadine 10 mg tablet 10 mg PO HS RF: 0 budesonide-formoterol [Symbicort] 160-4.5 mcg/actuation HFA aerosol inhaler 2 puff INHALATION HS RF: 0 Discontinued ibuprofen 800 mg tablet 800 mg PO TID RF: 0 Follow Up Plan Follow up with: Jennifer Clayton ARNP [Primary Care Provider] - Patient Disposition: Home, Self-Care Prognosis: Serious Rehab Potential: Good I certify that the patient requires SNF services: No Overall status at discharge: patient is back to baseline Discharge Orders: Discharge Order (Routine); Ordered 03/13/21 Ordered By: Travon Velazco
== END 2021-03-13 16:15 | disposition home or self-care (01) | DRG 683 ==
LOC: ED 14:44 → MEDSUR 21:45
PROVIDERS: ADMIT Internal Medicine; ATTEND Internal Medicine

== ENCOUNTER 2022-08-29 10:34 | Inpatient (IN) ==
[2022-08-29] MEDS ORDERED: 0.9 % SODIUM CHLORIDE 500 ML IV ONE ×2 (10:45→10:54)
[2022-08-29] MEDS ORDERED: ONDANSETRON 4 MG/2 ML VIAL IV PRN ×2 (10:54→16:26)
[2022-08-29 10:56] LABS: POC Calcium, Ionized 1.11 (1.16-1.32); POC Creatinine 1.7 (0.6-1.2)
--- NOTE | 2022-08-29 11:08 | Emergency Department Note ---
HPI General Chief complaint: Nausea/Vomiting/Diarrhea Stated complaint: n/v, diarrhea Time Seen by Provider: 08/29/22 10:40 Source: patient, EMS and RN notes reviewed Mode of arrival: EMS Limitations: altered mental status History of Present Illness HPI Narrative: Narrative: 66-year-old female with history of recurrent UTIs presents to the ER via EMS with altered mental status, tachycardia, fever and nausea and vomiting for the past few days. She complains of all over pain that is worse to her back. She is unable to provide information due to her cognitive status on arrival. Per EMS she had vomiting and diarrhea and is oxygen dependent at home. Associated symptoms: Reports nausea/vomiting Related Data Home Medications Medication Instructions Recorded Confirmed albuterol sulfate 2.5 mg/3 mL 2.5 mg inhalation PRN PRN 03/10/21 08/29/22 (0.083 %) solution for nebulization Shortness Of Breath atorvastatin 40 mg tablet 40 mg PO HS 03/10/21 08/29/22 cetirizine 10 mg tablet 10 mg PO HS 03/10/21 08/29/22 gabapentin 600 mg tablet 600 mg PO BID 03/10/21 08/29/22 levothyroxine 50 mcg tablet 50 mcg PO DAILY 03/10/21 08/29/22 meclizine 25 mg tablet 25 mg PO TIDP PRN Dizziness 03/10/21 08/29/22 montelukast 10 mg tablet 10 mg PO HS 03/10/21 08/29/22 omeprazole 20 mg capsule,delayed 20 mg PO BIDAC 03/10/21 08/29/22 release aspirin 81 mg tablet,delayed 81 mg PO DAILY 08/29/22 08/29/22 release budesonide-formoterol HFA 160 2 puff inhalation BIDP PRN asthma 08/29/22 08/29/22 mcg-4.5 mcg/actuation aerosol inhaler (Symbicort) buprenorphine 2 mg-naloxone 0.5 mg 1 tab sublingual TID pain 08/29/22 08/29/22 sublingual tablet diclofenac sodium 1 % topical gel 2 g topical QID 08/29/22 08/29/22 empagliflozin 10 mg tablet 10 mg PO QDAY 08/29/22 08/29/22 (Jardiance) fluticasone propionate 50 2 spray intranasal QDAY 08/29/22 08/29/22 mcg/actuation nasal spray,suspension liraglutide 0.6 mg/0.1 mL (18 mg/3 1.8 mg subcut QDAY 08/29/22 08/29/22 mL) subcutaneous pen injector (Victoza 3-Kory) lisinopril 10 mg tablet 10 mg PO QDAY 08/29/22 08/29/22 magnesium oxide 500 mg tablet 500 mg PO QDAY 08/29/22 08/29/22 methocarbamol 500 mg tablet 500 mg PO QID 08/29/22 08/29/22 spironolactone 50 mg tablet 50 mg PO QDAY 08/29/22 08/29/22 Allergies Allergy/AdvReac Type Severity Reaction Status Date / Time No Known Drug Allergies Allergy Verified 04/22/21 09:31 Review of Systems ROS ROS Narrative: Narrative: Constitutional: Reports fever, chills, weakness and sweats Gastrointestinal: Reports abdominal pain, nausea, vomiting and diarrhea PFSH Narrative Patient History Narrative: Narrative: Medical/Surgical/Family History All Active Problems (Updated 08/29/22 @ 16:06 by ALVA Bnoner) CAP (community acquired pneumonia) (Acute) Acute dehydration (Acute) AMS (altered mental status) (Acute) KWABENA (acute kidney injury) (Acute) Localized edema due to fluid overload (Chronic) GERD (gastroesophageal reflux disease) (Acute) Mixed dyslipidemia (Acute) Essential (primary) hypertension (Acute) COPD (chronic obstructive pulmonary disease) (Acute) Hypothyroidism (Acute) Elevated white blood cell count (Acute) Nausea and vomiting (Acute) Diarrhea (Acute) Anemia, normocytic normochromic (Acute) UTI (urinary tract infection) (Acute) Social History Smoking Status: Never smoker Alcohol Intake Frequency: holiday/special occasion only Exam Narrative Narrative: Narrative: General Limitations: altered mental status Head Head: Present atraumatic and normocephalic ENT ENT: Present mucous membranes dry and hoarse voice Chest Chest: Present normal inspection Respiratory Respiratory: Present normal lung sounds bilaterally; Absent respiratory distress, rales/crackles or wheezes Cardiovascular Cardiovascular: Present normal rhythm, tachycardia and normal heart sounds Adbominal Abdominal: Present soft and tenderness (Diffuse tenderness on exam without guarding or rebound.); Absent guarding Expanded Abdominal Abdominal Tenderness: Present diffuse Expanded Lower Extremity Foot/toe: Present swelling (trace BLE) Back Back: Present CVA tenderness (R) and CVA tenderness (L) Psychiatric Psychiatric: Present other Course Vital Signs Vital signs: Vital Signs Temperature 101.9 F H 08/29/22 10:35 Pulse Rate 115 H 08/29/22 10:35 Respiratory Rate 30 H 08/29/22 10:35 Blood Pressure 136/62 08/29/22 10:35 Pulse Oximetry (%) 92 08/29/22 10:35 Oxygen Delivery Method Room Air 08/29/22 10:35 Temperature 99.4 F H 08/29/22 20:01 Pulse Rate 93 H 08/29/22 21:21 Respiratory Rate 17 08/29/22 21:21 Blood Pressure 101/60 08/29/22 21:01 Pulse Oximetry (%) 96 08/29/22 21:21 Oxygen Delivery Method Nasal Cannula 08/29/22 21:01 Oxygen Flow Rate (L/min) 2 08/29/22 21:01 MDM MDM Narrative Medical decision making narrative: Narrative: Patient arrives via EMS and due to altered mental status is a poor historian. Per EMS that she had nausea, vomiting and diarrhea at home for the past few days. They report she is oxygen dependent at home for COPD. She lives alone. Clinical considerations include but are not limited to urosepsis, community-acquired pneumonia, COVID/influenza. On arrival an IV is started and she is given a liter of fluid. CBC reveals a leukocytosis to 18.7. On arrival patient is not actively vomiting. Old records reviewed and she has a long history of recurrent UTIs with acute kidney injury. Urine dip via straight cath was ordered as some positive fine nitrates but does not reveal any leukocytes. Urinalysis is ordered and pending. Creatinine is found to be elevated at 1.7 as her last was 0.8 as an outpatient which is suggestive of acute kidney injury. Patient's lactate is within normal limits. Procalcitonin is pending. EKG reveals a sinus tachycardia without ischemic changes. Chest x-ray is completed which is positive for left lower quadrant pneumonia. Patient was significantly dehydrated on arrival and she is given a liter of fluid. Due to her history of recurrent UTI suspect this is likely urosepsis as she has a fever of 101.9 on arrival. She is given 1000 mg of Tylenol, 3.375 mg of Zosyn and has Zofran as needed although she has had no episodes of vomiting. She is then started at 250/h NS as she has a history of CHF in the past. supervisor tower is contacted for possible admission-see consult note for time. Patient does note improvement in her symptoms although she remains slightly tachypneic but her pulse has decreased to the 90s. Her oxygen saturation is within normal limits on 2 L/min. Hospitalist agrees to admit patient. As patient improves she does request something for pain. Per her family member she is on Suboxone for chronic pain and she is given a dose of Suboxone in the ER for her symptoms. Prior to departure her temperature has decreased to 99.1. Lab Data 08/29/22 10:45 Labs: Lab Results 08/29/22 08/29/22 08/29/22 Range/Units 10:45 10:45 10:45 WBC 18.7 H (4.5-11.0) K/mcL RBC 4.70 (3.59-5.38) M/mcL Hgb 13.9 (11.2-15.7) g/dL Hct 42.2 (34.1-44.9) % POC Hct (36-48) MCV 89.8 (80.0-100.0) fL MCH 29.6 (26.0-34.0) pg MCHC 32.9 (31.0-36.0) g/dL RDW 13.9 (11.5-14.5) % Plt Count 116 L (140-440) K/mcL MPV 10.0 (8.8-12.5) fL Immature Gran % (Auto) 0.9 H (0.0-0.5) % Neut % (Auto) 82.6 H (38.0-78.0) % Lymph % (Auto) 6.7 L (15.5-49.0) % [place] % (Auto) 8.9 (1.0-12.0) % Eos % (Auto) 0.7 (0.0-7.0) % Baso % (Auto) 0.2 (0.0-2.0) % Lymph # (Auto) 1.26 L (1.50-4.80) K/mcL [place] # (Auto) 1.66 H (0.10-0.90) K/mcL Eos # (Auto) 0.14 (0.00-0.70) K/mcL Baso # (Auto) 0.04 (0.00-0.30) K/mcL Immature Gran # 0.17 H (0.00-0.05) K/mcl Absolute Neutrophils 15.46 H (1.80-8.00) K/mcL POC VBG pH (7.32-7.42) POC VBG pCO2 at Temp (41-51) POC VBG pO2 (25-40) POC VBG HCO3 (24-28) POC VBG Total CO2 (25-29) POC Venous O2 Sat (40-70) POC VBG Base Excess (-2-2) VBG Lactic Acid (0.5-2) POC Sodium (133-145) POC Potassium (3.3-5.1) POC Chloride (96-108) POC Total CO2 (22-30) POC BUN (6-20) POC Creatinine (0.6-1.2) POC Glucose (70-105) POC WB Ioniz Calcium (1.16-1.32) Magnesium 1.9 (1.6-2.5) mg/dL Procalcitonin 11.92 H (<0.10) ng/mL Urine Color Urine Appearance (Clear) Urine pH (5.0-9.0) Ur Specific [place] (1.000-1.035) Urine Protein (Negative) mg/dL Urine Glucose (UA) (Negative) mg/dL Urine Ketones (Negative) mg/dL Urine Occult Blood (Negative) mg/dL Urine Nitrate (Negative) Urine Bilirubin (Negative) mg/dL Urine Urobilinogen mg/dL Ur Leukocyte Esterase (Negative) /uL Urine RBC (0-3) /hpf Urine WBC (0-4) /hpf Ur Squamous Epith Cells (0-4) /hpf Ur Transition Epith Cell (0-2) /hpf Urine Bacteria (0) /hpf Hyaline Casts (0-2) /lph Granular Casts (0-0) /lph Urine Mucus (None) /hpf Ur Culture Indicated? Urine Opiates Screen Ur Opiates Confirm Ur Oxycodone Screen U Oxycod/Oxymor Confirm Urine Methadone Screen Ur Methadone Confirm Ur Barbiturates Screen Ur Barbiturate Confirm Ur Phencyclidine Scrn Urine PCP Confirm Ur Amphetamines Screen U Benzodiazepines Scrn Ur Benzodiazepine, Qnt Urine Cocaine Screen Urine Cocaine Confirm U Cannabinoids Confirm U Marijuana (THC) Screen 08/29/22 08/29/22 08/29/22 Range/Units 10:51 10:52 11:52 WBC (4.5-11.0) K/mcL RBC (3.59-5.38) M/mcL Hgb (11.2-15.7) g/dL Hct (34.1-44.9) % POC Hct 44.0 (36-48) MCV (80.0-100.0) fL MCH (26.0-34.0) pg MCHC (31.0-36.0) g/dL RDW (11.5-14.5) % Plt Count (140-440) K/mcL MPV (8.8-12.5) fL Immature Gran % (Auto) (0.0-0.5) % Neut % (Auto) (38.0-78.0) % Lymph % (Auto) (15.5-49.0) % [place] % (Auto) (1.0-12.0) % Eos % (Auto) (0.0-7.0) % Baso % (Auto) (0.0-2.0) % Lymph # (Auto) (1.50-4.80) K/mcL [place] # (Auto) (0.10-0.90) K/mcL Eos # (Auto) (0.00-0.70) K/mcL Baso # (Auto) (0.00-0.30) K/mcL Immature Gran # (0.00-0.05) K/mcl Absolute Neutrophils (1.80-8.00) K/mcL POC VBG pH 7.45 H (7.32-7.42) POC VBG pCO2 at Temp 31.0 L (41-51) POC VBG pO2 32 (25-40) POC VBG HCO3 21.5 L (24-28) POC VBG Total CO2 22.0 L (25-29) POC Venous O2 Sat 65.0 (40-70) POC VBG Base Excess -3.0 L (-2-2) VBG Lactic Acid 1.8 (0.5-2) POC Sodium 133 (133-145) POC Potassium 4.0 (3.3-5.1) POC Chloride 99 (96-108) POC Total CO2 23.0 (22-30) POC BUN 29 H (6-20) POC Creatinine 1.7 H (0.6-1.2) POC Glucose 148 H (70-105) POC WB Ioniz Calcium 1.11 L (1.16-1.32) Magnesium (1.6-2.5) mg/dL Procalcitonin (<0.10) ng/mL Urine Color Alisha Urine Appearance Hazy A (Clear) Urine pH 5.0 (5.0-9.0) Ur Specific [place] 1.020 (1.000-1.035) Urine Protein 100 A (Negative) mg/dL Urine Glucose (UA) >=500 A (Negative) mg/dL Urine Ketones Negative (Negative) mg/dL Urine Occult Blood >=1.0 A (Negative) mg/dL Urine Nitrate Negative (Negative) Urine Bilirubin Negative (Negative) mg/dL Urine Urobilinogen Negative mg/dL Ur Leukocyte Esterase Negative (Negative) /uL Urine RBC 1 (0-3) /hpf Urine WBC 8 H (0-4) /hpf Ur Squamous Epith Cells < 1 (0-4) /hpf Ur Transition Epith Cell < 1 (0-2) /hpf Urine Bacteria Few A (0) /hpf Hyaline Casts 7 H (0-2) /lph Granular Casts 6 H (0-0) /lph Urine Mucus Few A (None) /hpf Ur Culture Indicated? Yes Urine Opiates Screen Ur Opiates Confirm Ur Oxycodone Screen U Oxycod/Oxymor Confirm Urine Methadone Screen Ur Methadone Confirm Ur Barbiturates Screen Ur Barbiturate Confirm Ur Phencyclidine Scrn Urine PCP Confirm Ur Amphetamines Screen U Benzodiazepines Scrn Ur Benzodiazepine, Qnt Urine Cocaine Screen Urine Cocaine Confirm U Cannabinoids Confirm U Marijuana (THC) Screen 08/29/22 Range/Units 11:52 WBC (4.5-11.0) K/mcL RBC (3.59-5.38) M/mcL Hgb (11.2-15.7) g/dL Hct (34.1-44.9) % POC Hct (36-48) MCV (80.0-100.0) fL MCH (26.0-34.0) pg MCHC (31.0-36.0) g/dL RDW (11.5-14.5) % Plt Count (140-440) K/mcL MPV (8.8-12.5) fL Immature Gran % (Auto) (0.0-0.5) % Neut % (Auto) (38.0-78.0) % Lymph % (Auto) (15.5-49.0) % [place] % (Auto) (1.0-12.0) % Eos % (Auto) (0.0-7.0) % Baso % (Auto) (0.0-2.0) % Lymph # (Auto) (1.50-4.80) K/mcL [place] # (Auto) (0.10-0.90) K/mcL Eos # (Auto) (0.00-0.70) K/mcL Baso # (Auto) (0.00-0.30) K/mcL Immature Gran # (0.00-0.05) K/mcl Absolute Neutrophils (1.80-8.00) K/mcL POC VBG pH (7.32-7.42) POC VBG pCO2 at Temp (41-51) POC VBG pO2 (25-40) POC VBG HCO3 (24-28) POC VBG Total CO2 (25-29) POC Venous O2 Sat (40-70) POC VBG Base Excess (-2-2) VBG Lactic Acid (0.5-2) POC Sodium (133-145) POC Potassium (3.3-5.1) POC Chloride (96-108) POC Total CO2 (22-30) POC BUN (6-20) POC Creatinine (0.6-1.2) POC Glucose (70-105) POC WB Ioniz Calcium (1.16-1.32) Magnesium (1.6-2.5) mg/dL Procalcitonin (<0.10) ng/mL Urine Color Urine Appearance (Clear) Urine pH (5.0-9.0) Ur Specific [place] (1.000-1.035) Urine Protein (Negative) mg/dL Urine Glucose (UA) (Negative) mg/dL Urine Ketones (Negative) mg/dL Urine Occult Blood (Negative) mg/dL Urine Nitrate (Negative) Urine Bilirubin (Negative) mg/dL Urine Urobilinogen mg/dL Ur Leukocyte Esterase (Negative) /uL Urine RBC (0-3) /hpf Urine WBC (0-4) /hpf Ur Squamous Epith Cells (0-4) /hpf Ur Transition Epith Cell (0-2) /hpf Urine Bacteria (0) /hpf Hyaline Casts (0-2) /lph Granular Casts (0-0) /lph Urine Mucus (None) /hpf Ur Culture Indicated? Urine Opiates Screen None detected Ur Opiates Confirm TNP Ur Oxycodone Screen None detected U Oxycod/Oxymor Confirm TNP Urine Methadone Screen None detected Ur Methadone Confirm TNP Ur Barbiturates Screen None detected Ur Barbiturate Confirm TNP Ur Phencyclidine Scrn None detected Urine PCP Confirm TNP Ur Amphetamines Screen Suspect positive A U Benzodiazepines Scrn None detected Ur Benzodiazepine, Qnt TNP Urine Cocaine Screen None detected Urine Cocaine Confirm TNP U Cannabinoids Confirm TNP U Marijuana (THC) Screen None detected EKG Data EKG #1: EKG attestation: Yes I reviewed and interpreted this EKG. EKG shows normal: sinus rhythm Rate: tachycardia Rhythm: PVC's and PAC's Interpretation: no acute changes and nonspecific ST-T wave changes Discharge Plan Patient/Caregiver Discharge Instructions Pt seen by GROCERY CLERK STOCKING/PA only: Yes Clinical Impression: UTI (urinary tract infection), CAP (community acquired pneumonia), Acute dehydration, AMS (altered mental status), KWABENA (acute kidney injury) Patient Disposition: Xfer As Inpt ([facility]) Discharge Date/Time: 08/29/22 16:18
[2022-08-29] MEDS ORDERED: PIPERACILLIN SODIUM/TAZOBACTAM 3.375 GM in DEXTROSE 5% IN WATER 50 ML IV ONE (11:10)
--- NOTE | 2022-08-29 11:16 | XRay Report ---
HISTORY: Sepsis, nausea, vomiting, diarrhea FINDINGS: Alveolar infiltrates are present in both lung bases, left worse than right. These are new since 03/10/21. Mid and upper lung guillaume are clear. There is no pleural effusion. No adenopathy is detected. The heart size is normal. IMPRESSION: Pneumonia, predominantly involving the left lower lobe Interpreted and Authenticated by: Enrique Cool 08/29/22
[2022-08-29] MEDS ORDERED: ACETAMINOPHEN 325 MG TABLET PO ONE (11:17)
[2022-08-29 11:41] LABS: Basophils # (Auto) 0.04 K/mcL (0.00-0.30); Basophils % (Auto) 0.2 % (0.0-2.0); Eosinophils # (Auto) 0.14 K/mcL (0.00-0.70); Eosinophils % (Auto) 0.7 % (0.0-7.0); Hematocrit 42.2 % (34.1-44.9); Hemoglobin 13.9 g/dL (11.2-15.7); Lymphocytes # (Auto) 1.26 K/mcL (1.50-4.80); Lymphocytes % (Auto) 6.7 % (15.5-49.0); Mean Cell Volume 89.8 fL (80.0-100.0); Mean Corpuscular HGB Conc 32.9 g/dL (31.0-36.0); Monocytes # (Auto) 1.66 K/mcL (0.10-0.90); Monocytes % (Auto) 8.9 % (1.0-12.0); Neutrophils % (Auto) 82.6 % (38.0-78.0); Platelet Count 116 K/mcL (140-440); Red Cell Distribution Width 13.9 % (11.5-14.5); WBC 18.7 K/mcL (4.5-11.0)
[2022-08-29 13:01] LABS: Appearance,Urine HAZY (Clear); Bacteria,Urine FEW /hpf (0); Bilirubin,Urine Negative (Negative); Color,Urine AMBER; Culture Indicated,Urine Yes; Glucose,Urine (UA) >=500 mg/dL (Negative); Ketones,Urine Negative (Negative); Leukocyte Esterase,Urine Negative /uL (Negative); Mucus,Urine FEW /hpf; Nitrate,Urine Negative (Negative); Protein,Urine 100 mg/dL (Negative); Urine Blood >=1.0 mg/dL (Negative); Urine Granular Cast 6 /lph (0-0); Urine Hyaline Cast 7 /lph (0-2); Urine RBC 1 /hpf (0-3); Urine Squamous Epithelial Cell < 1 /hpf (0-4); Urine Transitional Epi Cells < 1 /hpf (0-2); Urine WBC 8 /hpf (0-4); Urobilinogen,Urine Negative
[2022-08-29] MEDS: 0.9 % SODIUM CHLORIDE 1,000 ML IV SCH ×2 (13:30→15:39)
[2022-08-29] MEDS ORDERED: BUPRENORPHINE/NALOXONE 4MG/1MG ORAL FILM SL ONE (14:26)
[2022-08-29] MEDS: BUPRENORPHINE/NALOXONE 4MG/1MG ORAL FILM SL ONE ×2 (14:31→14:48)
[2022-08-29 15:36] LABS: Amphetamine Screen,Urine Suspect positive; Barbiturate Screen,Urine None detected; Benzodiazepines Screen,Urine None detected; Cannabinoid Screen,Urine None detected; Cocaine Screen,Urine None detected; Opiate Screen,Urine None detected; Oxycodone, Urine Screen None detected; Phencyclidine Screen,Urine None detected
--- NOTE | 2022-08-29 15:44 | EKG ---
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
[2022-08-29] MEDS ORDERED: IPRATROPIUM/ALBUTEROL 3 ML AMPUL.NEB NEB PRN (16:26)
[2022-08-29] MEDS ORDERED: DEXTROSE 50% 50 ML VIAL IV PRN (16:26)
[2022-08-29] MEDS ORDERED: DEXTROSE 31 GM ORAL.SUSP PO PRN (16:26)
[2022-08-29] MEDS: INSULIN LISPRO 1 UNIT/0.01 ML UNIT SQ SCH ×2 (16:40→21:14)
[2022-08-29] MEDS: cefTRIAXone 1 GM VIAL IV SCH (17:02)
[2022-08-29] MEDS: LACTATED RINGERS 1,000 ML IV SCH (17:04)
--- NOTE | 2022-08-29 19:14 | Internal Med History&Physical ---
HPI History of Present Illness Patient information: Note initiated : 08/29/22 at 7:08 pm Service Date, if different from initiated Date: [] Patient: Elicia Ricks a 66 y/o F admitted on 08/29/22 for n/v, diarrhea; sepsis, toxic metabolic . Chief Complaint: [AMS] Chief complaint: AMS History of present illness: Ms. Ricks is a 66 year old F with a complex PMHx significant for polypharmacy, chronic opoid use disorder on Subonxone, DM2, COPDon home O2, hypothyroidism, and HTN who presents to the hospital w/ AMS. The patient was encephalopathic and hx was obtained second hard from chart review and from nursing. She was brought in via EMS. On arrival, she was HD stable but febrile. She was found to have grossly positive UA and infiltrate on CXR. The patient was also noted to have KWABENA. The hospitalist service was asked to admit her for further mx and evaluation of her toxic metabolic encephalopathy and sepsis. Review of Systems ROS unobtainable: due to mental status PFSH PFSH All Active Problems (Updated 08/29/22 @ 16:06 by ALVA Bonner) CAP (community acquired pneumonia) (Acute) Acute dehydration (Acute) AMS (altered mental status) (Acute) KWABENA (acute kidney injury) (Acute) Localized edema due to fluid overload (Chronic) GERD (gastroesophageal reflux disease) (Acute) Mixed dyslipidemia (Acute) Essential (primary) hypertension (Acute) COPD (chronic obstructive pulmonary disease) (Acute) Hypothyroidism (Acute) Elevated white blood cell count (Acute) Nausea and vomiting (Acute) Diarrhea (Acute) Anemia, normocytic normochromic (Acute) UTI (urinary tract infection) (Acute) Social History (Updated 04/22/21 @ 09:37 by Ledy Franklin [employer]) smoking status: Never smoker alcohol intake frequency: holiday/special occasion only MEDS/ALLERGIES Home Medications and Allergies Home Medications Medication Instructions Recorded Confirmed Type albuterol sulfate 2.5 mg/3 mL 2.5 mg inhalation PRN PRN 03/10/21 08/29/22 History (0.083 %) solution for nebulization Shortness Of Breath atorvastatin 40 mg tablet 40 mg PO HS 03/10/21 08/29/22 History cetirizine 10 mg tablet 10 mg PO HS 03/10/21 08/29/22 History gabapentin 600 mg tablet 600 mg PO BID 03/10/21 08/29/22 History levothyroxine 50 mcg tablet 50 mcg PO DAILY 03/10/21 08/29/22 History meclizine 25 mg tablet 25 mg PO TIDP PRN Dizziness 03/10/21 08/29/22 History montelukast 10 mg tablet 10 mg PO HS 03/10/21 08/29/22 History omeprazole 20 mg capsule,delayed 20 mg PO BIDAC 03/10/21 08/29/22 History release aspirin 81 mg tablet,delayed 81 mg PO DAILY 08/29/22 08/29/22 History release budesonide-formoterol HFA 160 2 puff inhalation BIDP PRN asthma 08/29/22 08/29/22 History mcg-4.5 mcg/actuation aerosol inhaler (Symbicort) buprenorphine 2 mg-naloxone 0.5 mg 1 tab sublingual TID pain 08/29/22 08/29/22 History sublingual tablet diclofenac sodium 1 % topical gel 2 g topical QID 08/29/22 08/29/22 History empagliflozin 10 mg tablet 10 mg PO QDAY 08/29/22 08/29/22 History (Jardiance) fluticasone propionate 50 2 spray intranasal QDAY 08/29/22 08/29/22 History mcg/actuation nasal spray,suspension liraglutide 0.6 mg/0.1 mL (18 mg/3 1.8 mg subcut QDAY 08/29/22 08/29/22 History mL) subcutaneous pen injector (SimpliVT 3-Kory) lisinopril 10 mg tablet 10 mg PO QDAY 08/29/22 08/29/22 History magnesium oxide 500 mg tablet 500 mg PO QDAY 08/29/22 08/29/22 History methocarbamol 500 mg tablet 500 mg PO QID 08/29/22 08/29/22 History spironolactone 50 mg tablet 50 mg PO QDAY 08/29/22 08/29/22 History Allergies Allergy/AdvReac Type Severity Reaction Status Date / Time No Known Drug Allergies Allergy Verified 04/22/21 09:31 EXAM Constitutional Vitals: Temp Pulse Resp BP Pulse Ox O2 Del Method O2 Flow Rate 99.6 F H 94 H 19 102/58 93 Nasal Cannula 2 08/29/22 19:01 08/29/22 19:01 08/29/22 19:01 08/29/22 19:01 08/29/22 19:01 08/29/22 19:01 08/29/22 19:01 General appearance: average body habitus Head Head exam: Present atraumatic, normal inspection and normocephalic Eye Eye exam: Present EOMI, normal appearance and PERRL; Absent conjunctival injection ENT ENT exam: Present normal exam; Absent mucous membranes dry Neck Neck exam: Present full ROM; Absent lymphadenopathy Respiratory Respiratory exam: Present normal respiratory exam and CTAB; Absent decreased breath sounds, respiratory distress or wheezes Cardiovascular Cardiovascular exam: Present normal rate and rhythm and RRR; Absent JVD GI/Abdominal GI/Abdominal exam: Present normal bowel sounds and soft; Absent diminished bowel sounds, distended, guarding, mass, rebound or tenderness Neurological Exam Neurological exam: Present alert Psychiatric Psychiatric exam: Present normal affect and normal mood Skin Skin exam: Present intact and warm; Absent erythema, pallor, petechiae or rash DATA Data Completed and Pending Labs: Labs from last 24 hours 08/29/22 08/29/22 08/29/22 11:52 11:52 10:52 WBC RBC Hgb Hct POC Hct MCV MCH MCHC RDW Plt Count MPV Immature Gran % (Auto) Neut % (Auto) Lymph % (Auto) [place] % (Auto) Eos % (Auto) Baso % (Auto) Lymph # (Auto) [place] # (Auto) Eos # (Auto) Baso # (Auto) Immature Gran # Absolute Neutrophils POC VBG pH 7.45 H POC VBG pCO2 at Temp 31.0 L POC VBG pO2 32 POC VBG HCO3 21.5 L POC VBG Total CO2 22.0 L POC Venous O2 Sat 65.0 POC VBG Base Excess -3.0 L VBG Lactic Acid 1.8 POC Sodium POC Potassium POC Chloride POC Total CO2 POC BUN POC Creatinine POC Glucose POC WB Ioniz Calcium Magnesium Procalcitonin Urine Color Alisha Urine Appearance Hazy A Urine pH 5.0 Ur Specific [place] 1.020 Urine Protein 100 A Urine Glucose (UA) >=500 A Urine Ketones Negative Urine Occult Blood >=1.0 A Urine Nitrate Negative Urine Bilirubin Negative Urine Urobilinogen Negative Ur Leukocyte Esterase Negative Urine RBC 1 Urine WBC 8 H Ur Squamous Epith Cells < 1 Ur Transition Epith Cell < 1 Urine Bacteria Few A Hyaline Casts 7 H Granular Casts 6 H Urine Mucus Few A Ur Culture Indicated? Yes Urine Opiates Screen None detected Ur Opiates Confirm TNP Ur Oxycodone Screen None detected U Oxycod/Oxymor Confirm TNP Urine Methadone Screen None detected Ur Methadone Confirm TNP Ur Barbiturates Screen None detected Ur Barbiturate Confirm TNP Ur Phencyclidine Scrn None detected Urine PCP Confirm TNP Ur Amphetamines Screen Suspect positive A U Amphetamines Confirm Pending U Benzodiazepines Scrn None detected Ur Benzodiazepine, Qnt TNP Urine Cocaine Screen None detected Urine Cocaine Confirm TNP U Cannabinoids Confirm TNP U Marijuana (THC) Screen None detected 08/29/22 08/29/22 08/29/22 10:51 10:45 10:45 WBC RBC Hgb Hct POC Hct 44.0 MCV MCH MCHC RDW Plt Count MPV Immature Gran % (Auto) Neut % (Auto) Lymph % (Auto) [place] % (Auto) Eos % (Auto) Baso % (Auto) Lymph # (Auto) [place] # (Auto) Eos # (Auto) Baso # (Auto) Immature Gran # Absolute Neutrophils POC VBG pH POC VBG pCO2 at Temp POC VBG pO2 POC VBG HCO3 POC VBG Total CO2 POC Venous O2 Sat POC VBG Base Excess VBG Lactic Acid POC Sodium 133 POC Potassium 4.0 POC Chloride 99 POC Total CO2 23.0 POC BUN 29 H POC Creatinine 1.7 H POC Glucose 148 H POC WB Ioniz Calcium 1.11 L Magnesium 1.9 Procalcitonin 11.92 H Urine Color Urine Appearance Urine pH Ur Specific [place] Urine Protein Urine Glucose (UA) Urine Ketones Urine Occult Blood Urine Nitrate Urine Bilirubin Urine Urobilinogen Ur Leukocyte Esterase Urine RBC Urine WBC Ur Squamous Epith Cells Ur Transition Epith Cell Urine Bacteria Hyaline Casts Granular Casts Urine Mucus Ur Culture Indicated? Urine Opiates Screen Ur Opiates Confirm Ur Oxycodone Screen U Oxycod/Oxymor Confirm Urine Methadone Screen Ur Methadone Confirm Ur Barbiturates Screen Ur Barbiturate Confirm Ur Phencyclidine Scrn Urine PCP Confirm Ur Amphetamines Screen U Amphetamines Confirm U Benzodiazepines Scrn Ur Benzodiazepine, Qnt Urine Cocaine Screen Urine Cocaine Confirm U Cannabinoids Confirm U Marijuana (THC) Screen 08/29/22 10:45 WBC 18.7 H RBC 4.70 Hgb 13.9 Hct 42.2 POC Hct MCV 89.8 MCH 29.6 MCHC 32.9 RDW 13.9 Plt Count 116 L MPV 10.0 Immature Gran % (Auto) 0.9 H Neut % (Auto) 82.6 H Lymph % (Auto) 6.7 L [place] % (Auto) 8.9 Eos % (Auto) 0.7 Baso % (Auto) 0.2 Lymph # (Auto) 1.26 L [place] # (Auto) 1.66 H Eos # (Auto) 0.14 Baso # (Auto) 0.04 Immature Gran # 0.17 H Absolute Neutrophils 15.46 H POC VBG pH POC VBG pCO2 at Temp POC VBG pO2 POC VBG HCO3 POC VBG Total CO2 POC Venous O2 Sat POC VBG Base Excess VBG Lactic Acid POC Sodium POC Potassium POC Chloride POC Total CO2 POC BUN POC Creatinine POC Glucose POC WB Ioniz Calcium Magnesium Procalcitonin Urine Color Urine Appearance Urine pH Ur Specific [place] Urine Protein Urine Glucose (UA) Urine Ketones Urine Occult Blood Urine Nitrate Urine Bilirubin Urine Urobilinogen Ur Leukocyte Esterase Urine RBC Urine WBC Ur Squamous Epith Cells Ur Transition Epith Cell Urine Bacteria Hyaline Casts Granular Casts Urine Mucus Ur Culture Indicated? Urine Opiates Screen Ur Opiates Confirm Ur Oxycodone Screen U Oxycod/Oxymor Confirm Urine Methadone Screen Ur Methadone Confirm Ur Barbiturates Screen Ur Barbiturate Confirm Ur Phencyclidine Scrn Urine PCP Confirm Ur Amphetamines Screen U Amphetamines Confirm U Benzodiazepines Scrn Ur Benzodiazepine, Qnt Urine Cocaine Screen Urine Cocaine Confirm U Cannabinoids Confirm U Marijuana (THC) Screen A/P Assessment and plan (1) CAP (community acquired pneumonia): Status: Acute (2) KWABENA (acute kidney injury): Status: Acute (3) COPD (chronic obstructive pulmonary disease): Status: Acute (4) Hypothyroidism: Status: Acute (5) Acute kidney injury with acute tubular necrosis: Status: Resolved (6) UTI (urinary tract infection): Status: Acute Narrative A/P Narrative: The patient is on multiple medications that can cause AMS (gabapentin, suboxone, methocarbomol). Her AMS was likely made worse by her underlying infection. She appears to have both a pneumonia and UTI. Will f/u on urine and blood cx. Will cover with CTX/zithromax. She has been resuscitated w/ IVF and will hold aldactone in the setting of KWABENA. Med rec is pending. Time Spent With Patient Time: Total time spent is greater than 50% in coordination of care (as documented) at patient's floor/unit and/or counseling patient: Initial: Total time with patient: 55 - 74 minutes QUALITY VTE Deep Vein Thrombosis/Pulmonary Embolism Present on Admission: No
[2022-08-29] MEDS: 0.9 % SODIUM CHLORIDE 10 ML SYRINGE IV SCH (21:15)
[2022-08-30] MEDS: LACTATED RINGERS 1,000 ML IV SCH ×3 (03:11→23:25)
[2022-08-30] MEDS: 0.9 % SODIUM CHLORIDE 10 ML SYRINGE IV SCH ×4 (04:52→22:18)
[2022-08-30 06:56] LABS: Blood Urea Nitrogen 26 mg/dL (8-23); Calcium 8.2 mg/dL (8.6-10.4); Carbon Dioxide 20 mmol/L (22-30); Chloride 104 mmol/L (96-108); Glomerular Filtration Rate 36; Glucose 106 mg/dL (70-105)
[2022-08-30 07:15] LABS: Band Neutrophils % 6 % (0-10); Hematocrit 38.7 % (34.1-44.9); Hemoglobin 11.9 g/dL (11.2-15.7); Lymphocytes % 8 % (15-49); Mean Cell Volume 94.9 fL (80.0-100.0); Mean Corpuscular HGB Conc 30.7 g/dL (31.0-36.0); Mean Platelet Volume 11.3 fL (8.8-12.5); Monocytes % (Manual) 5 % (1-12); Platelet Count 80 K/mcL (140-440); Platelet Estimate DECREASED (Normal); RBC 4.08 M/mcL (3.59-5.38); RBC Morphology NORMAL (Normal); Red Cell Distribution Width 14.5 % (11.5-14.5); Segmented Neutrophils % 81 % (38-78); WBC 15.5 K/mcL (4.5-11.0)
[2022-08-30] MEDS: INSULIN LISPRO 1 UNIT/0.01 ML UNIT SQ SCH ×4 (07:46→20:31)
[2022-08-30] MEDS: cefTRIAXone 1 GM VIAL IV SCH (09:34)
[2022-08-30] MEDS: ENOXAPARIN 40 MG/0.4 ML SYRINGE SQ SCH (09:34)
[2022-08-30] MEDS: AZITHROMYCIN 250 MG TABLET PO SCH (09:52)
[2022-08-30] MEDS: ACETAMINOPHEN 325 MG TABLET PO PRN ×2 (10:50→20:15)
--- NOTE | 2022-08-30 11:41 | Internal Med Progress Note ---
SUBJECTIVE Subjective Patient information: Note initiated : 08/30/22 at 11:39 am Service Date, if different from initiated Date: [] Patient: Elicia Ricks 66 y/o F admitted on 08/29/22 for n/v, diarrhea; sepsis, toxic metabolic . Chief Complaint: [Toxic metabolic encephalopathy] Principal diagnosis: Sepsis, toxic metabolic encephalopathy Interval history: The patient remains confused. She did receive her dose of Suboxone yesterday. Of note her urine drug screen was positive for methamphetamines. Reportedly, she does have a prior use of meth. Discussed the case with the RN. Constitutional Vitals: Vital Signs Temp Pulse Resp BP Pulse Ox O2 Del Method O2 Flow Rate 100.5 F H 103 H 24 H 115/66 94 Nasal Cannula 1 08/30/22 07:47 08/30/22 10:52 08/30/22 10:52 08/30/22 10:01 08/30/22 10:52 08/30/22 10:52 08/30/22 10:52 Period Temp Pulse Resp BP Sys/Garza Pulse Ox O2 Del Method O2 Flow Rate Last 24 Hr 98.1 F-101.9 F 44-109 13-32 80-134/49-78 91-99 Nasal Cannula- Nasal Cannula 1-2 Intake and Output 08/29/22 08/30/22 08/30/22 19:59 03:59 11:59 Intake Total 2049 1000 Output Total 180 320 100 Balance 1870 680 -100 Weight 126.099 kg 126.779 kg Intake & Output: Intake & Output 08/29/22 08/30/22 08/30/22 19:59 03:59 11:59 Intake Total 2049 1000 Output Total 180 320 100 Balance 1870 680 -100 Weight 126.099 kg 126.779 kg Intake: IV 2049 1000 Sodium Chloride 0.9% 1,000 ml @ 2000 500 mls/hr IV .Q2H LINDA Rx#: [id number] Lactated Ringers 1,000 ml @ 100 1000 mls/hr IV .Q10H LINDA Rx#: [id number] Zosyn 3.375 gm In Dextrose 5% 50 in Water 50 ml @ 100 mls/hr IV ONCE ONE Rx#:[id number] Output: Urine Catheter Amount 180 290 100 Void Amount 30 Other: Urine Appearance Cloudy Clear Uretheral (Casanova) Cloudy Clear Urine Color Light Alisha Light Alisha Light Alisha Uretheral ([place]anova) Yellow General appearance: no acute distress and obese Head Head exam: Present normal inspection and normocephalic Eye Eye exam: Present EOMI and PERRL; Absent scleral icterus ENT ENT exam: Present mucous membranes moist Neck Neck exam: Present full ROM; Absent meningismus Respiratory Respiratory exam: Present normal respiratory exam Cardiovascular Cardiovascular exam: Present normal rate and rhythm, RRR, +S1 and +S2; Absent gallop, irregular rhythm, JVD or +S3 GI/Abdominal GI/Abdominal exam: Present normal bowel sounds Neurological Exam Neurological exam: Present alert and altered Psychiatric Psychiatric exam: Present normal affect and normal mood Skin Skin exam: Present dry OBJ DATA Labs 08/30/22 05:10 08/30/22 05:10 Labs: Abnormal Lab Results 08/30/22 08/30/22 08/29/22 05:10 05:10 11:52 WBC 15.5 H MCHC 30.7 L Plt Count 80 L Immature Gran % (Auto) Neut % (Auto) Lymph % (Auto) Lymph # (Auto) [place] # (Auto) Seg Neutrophils % 81 H Lymphocytes % 8 L Immature Gran # Absolute Neutrophils Platelet Estimate Decreased A POC VBG pH POC VBG pCO2 at Temp POC VBG HCO3 POC VBG Total CO2 POC VBG Base Excess Carbon Dioxide 20 L POC BUN BUN 26 H Creatinine 1.5 H POC Creatinine Glucose 106 H POC Glucose Calcium 8.2 L POC WB Ioniz Calcium Procalcitonin Urine Appearance Urine Protein Urine Glucose (UA) Urine Occult Blood Urine WBC Urine Bacteria Hyaline Casts Granular Casts Urine Mucus Ur Amphetamines Screen Suspect positive A 08/29/22 08/29/22 08/29/22 11:52 10:52 10:51 WBC MCHC Plt Count Immature Gran % (Auto) Neut % (Auto) Lymph % (Auto) Lymph # (Auto) [place] # (Auto) Seg Neutrophils % Lymphocytes % Immature Gran # Absolute Neutrophils Platelet Estimate POC VBG pH 7.45 H POC VBG pCO2 at Temp 31.0 L POC VBG HCO3 21.5 L POC VBG Total CO2 22.0 L POC VBG Base Excess -3.0 L Carbon Dioxide POC BUN 29 H BUN Creatinine POC Creatinine 1.7 H Glucose POC Glucose 148 H Calcium POC WB Ioniz Calcium 1.11 L Procalcitonin Urine Appearance Hazy A Urine Protein 100 A Urine Glucose (UA) >=500 A Urine Occult Blood >=1.0 A Urine WBC 8 H Urine Bacteria Few A Hyaline Casts 7 H Granular Casts 6 H Urine Mucus Few A Ur Amphetamines Screen 08/29/22 08/29/22 10:45 10:45 WBC 18.7 H MCHC Plt Count 116 L Immature Gran % (Auto) 0.9 H Neut % (Auto) 82.6 H Lymph % (Auto) 6.7 L Lymph # (Auto) 1.26 L [place] # (Auto) 1.66 H Seg Neutrophils % Lymphocytes % Immature Gran # 0.17 H Absolute Neutrophils 15.46 H Platelet Estimate POC VBG pH POC VBG pCO2 at Temp POC VBG HCO3 POC VBG Total CO2 POC VBG Base Excess Carbon Dioxide POC BUN BUN Creatinine POC Creatinine Glucose POC Glucose Calcium POC WB Ioniz Calcium Procalcitonin 11.92 H Urine Appearance Urine Protein Urine Glucose (UA) Urine Occult Blood Urine WBC Urine Bacteria Hyaline Casts Granular Casts Urine Mucus Ur Amphetamines Screen Meds: Medications Acetaminophen (Acetaminophen 325 Mg Tablet) 650 mg PO Q4-6HP PRN; Protocol PRN Reason: Per Pain Protocol/Fever > 101 Last Admin: 08/30/22 10:50 Dose: 650 mg Albuterol/Ipratropium (Ipratropium/Albuterol 3 Ml Ampul.Neb) 3 ml NEB Q6HP PRN PRN Reason: Shortness Of Breath Azithromycin (Azithromycin 250 Mg Tablet) 250 mg PO DAILY LINDA; Protocol Stop: 09/02/22 09:01 Last Admin: 08/30/22 09:52 Dose: 250 mg Ceftriaxone Sodium (Ceftriaxone 1 Gm Vial) 1 gm IV Q24H LINDA; Protocol Last Admin: 08/30/22 09:34 Dose: 1 gm Dextrose (Dextrose 50% 50 Ml Vial) 0 ml IV UD PRN PRN Reason: Per Sliding Scale Diagnostic Test (Pha) (Accu-Chek 1 Each Strip) 1 each FS ACHS [facility] Last Admin: 08/30/22 07:45 Dose: 1 each Enoxaparin Sodium (Enoxaparin 40 Mg/0.4 Ml Syringe) 40 mg SQ DAILY LINDA Last Admin: 08/30/22 09:34 Dose: 40 mg Glucose (Dextrose 31 Gm Oral.Susp) 15 gm PO PRN PRN PRN Reason: Hypoglycemia Lactated Ringer's (Lactated Ringers) 1,000 mls @ 100 mls/hr IV .Q10H [facility] Last Admin: 08/30/22 03:11 Dose: 100 mls/hr Insulin Human Lispro (Insulin Lispro 1 Unit/0.01 Ml Unit) 0 unit SQ ACHS [facility]; Protocol Last Admin: 08/30/22 07:46 Dose: Not Given Ondansetron HCl (Ondansetron 4 Mg/2 Ml Vial) 4 mg IV Q4-6HP PRN; Protocol PRN Reason: Nausea And Vomiting Sodium Chloride (0.9 % Sodium Chloride 10 Ml Syringe) 10 ml IV Q8 [facility] Last Admin: 08/30/22 09:34 Dose: 10 ml A/P Assessment and plan (1) CAP (community acquired pneumonia): Status: Acute (2) KWABENA (acute kidney injury): Status: Acute (3) COPD (chronic obstructive pulmonary disease): Status: Acute (4) Hypothyroidism: Status: Acute (5) Acute kidney injury with acute tubular necrosis: Status: Resolved (6) UTI (urinary tract infection): Status: Acute Narrative A/P Narrative: The patient is on multiple medications that can cause AMS (gabapentin, suboxone, methocarbomol). Her AMS was likely made worse by her underlying infection. She appears to have both a pneumonia and UTI. Will f/u on urine and blood cx. Will c over with CTX/zithromax. She has been resuscitated w/ IVF and will hold aldactone in the setting of KWABENA. Med rec is pending. 08/30: Her KWABENA is improved with IV fluids as has her blood pressure. In terms of her left lobar pneumonia seen on chest x-ray and a grossly abnormal UA, will obtain CT chest abdomen pelvis today. Continue ceftriaxone and Zithromax. We are holding her home sedatives due to altered mental status. Social work and case management will work on chemical dependency counseling and placement if needed. Time Spent With Patient Time: Total time spent is greater than 50% in coordination of care (as documented) at patient's floor/unit and/or counseling patient: Initial: Total time with patient: 55 - 74 minutes QUALITY VTE Deep Vein Thrombosis/Pulmonary Embolism Present on Admission: No
--- NOTE | 2022-08-30 11:59 | Cat Scan Report ---
History: Sepsis, nausea, vomiting, diarrhea graft technique: Patient was imaged without contrast in axial plane at 2.5 mm intervals from above the thoracic inlet through the symphysis pubis. Sagittal and coronal reformats were created along with axial MIPS images of the chest. The radiation exposure was limited using dose reduction technology. FINDINGS: CHEST: Lung volumes are small due to poor inspiration. Patient was also unable to hold her breath during the exam. There are small patchy infiltrates in the anterior basal segment of the left lower lobe and inferior segment of lingula. Mild dependent atelectasis is present posteriorly in both lower lobes. There are tiny bilateral pleural effusions. There is no evidence of a lung mass, abscess or lobar consolidation. There is a stable well-circumscribed 4 x 5 mm noncalcified, subpleural granuloma laterally in the right middle lobe. The heart size is normal. There are few reactive lymph nodes in the mediastinum. Aorta is normal in caliber. Abdomen and pelvis: Evaluation of abdominal organs without contrast is somewhat limited. The liver and spleen are normal in size and homogeneous. There are multiple small stones layering posteriorly in the neck of the gallbladder. The measure up to 4 mm. Gallbladder wall is not thickened or inflamed and the bile ducts are nondilated. No abnormality seen within the pancreas. The adrenals are normal and symmetric. There is moderate stranding of the perinephric fat surrounding both kidneys. There is also a band of scar or loculated pocket of fluid in the left pararenal space lateral to the lower half of the left kidney. The kidneys appear normal without evidence of inflammation. There is no kidney stone, hydronephrosis or mass effect in either kidney. Both ureters are decompressed. Aorta is normal caliber. There is minor atherosclerotic disease. Stomach is decompressed. Small intestine is normal in caliber and noninflamed. The appendix is normal. The large intestine is largely decompressed. There are a few noninflamed diverticula in the descending and sigmoid colon. No abscess mass or free fluid are present within the abdomen or pelvis. The uterus and ovaries are atrophic but normal. Urinary bladder is decompressed by Casanova catheter. There is a collection of small bubbles in the subcutaneous fat anteriorly in the right side of the pelvis. There is no surrounding inflammation. This may be due to a recent injection. Patient has a small fat-containing umbilical hernia. There is degenerative disc disease and arthritis at L3-4 and arthritis at multiple levels in the thoracic spine. IMPRESSION: Mild pneumonia involving the lingula and left lower lobe Mild dependent atelectasis in both lung bases No evidence of abdominal mass or abscess Nonspecific stranding of the perinephric fat around both kidneys which has increased since 03/10/21. This may be seen with inflammation or prior episode of obstruction. There is no radiographic evidence of pyelonephritis. Cholelithiasis, without evidence of cholecystitis Interpreted and Authenticated by: Enrique Cool 08/30/22
[2022-08-30] MEDS: GABAPENTIN 300 MG CAPSULE PO SCH (20:16)
[2022-08-31] MEDS: 0.9 % SODIUM CHLORIDE 10 ML SYRINGE IV SCH ×3 (04:32→20:18)
[2022-08-31 06:50] LABS: Blood Urea Nitrogen 32 mg/dL (8-23); Calcium 8.2 mg/dL (8.6-10.4); Carbon Dioxide 22 mmol/L (22-30); Chloride 103 mmol/L (96-108); Glomerular Filtration Rate 43; Glucose 103 mg/dL (70-105)
[2022-08-31] MEDS: INSULIN LISPRO 1 UNIT/0.01 ML UNIT SQ SCH ×4 (07:36→20:26)
[2022-08-31] MEDS: LACTATED RINGERS 1,000 ML IV SCH (07:38)
[2022-08-31 07:57] LABS: Basophils % (Auto) 0.6 % (0.0-2.0); Eosinophils # (Auto) 0.01 K/mcL (0.00-0.70); Eosinophils % (Auto) 0.1 % (0.0-7.0); Hemoglobin 12.7 g/dL (11.2-15.7); Lymphocytes # (Auto) 0.75 K/mcL (1.50-4.80); Lymphocytes % (Auto) 4.4 % (15.5-49.0); Mean Platelet Volume 12.2 fL (8.8-12.5); Monocytes # (Auto) 2.75 K/mcL (0.10-0.90); Monocytes % (Auto) 16.2 % (1.0-12.0); Neutrophils % (Auto) 75.3 % (38.0-78.0); Platelet Count 44 K/mcL (140-440); RBC 4.36 M/mcL (3.59-5.38); Red Cell Distribution Width 14.9 % (11.5-14.5)
[2022-08-31] MEDS ORDERED: cefTRIAXone 1 GM VIAL IV SCH (08:06)
[2022-08-31] MEDS: cefTRIAXone 2 GM in DEXTROSE 5% IN WATER 50 ML IV SCH (08:18)
[2022-08-31] MEDS: VANCOMYCIN 1,500 MG in 0.9 % SODIUM CHLORIDE 500 ML IV SCH ×2 (08:23→20:18)
[2022-08-31] MEDS ORDERED: VANCOMYCIN PER PHARMACY IV SCH (09:00)
[2022-08-31] MEDS ORDERED: BUPRENORPHINE PO SCH (09:00)
[2022-08-31] MEDS: GABAPENTIN 300 MG CAPSULE PO SCH (09:05)
--- NOTE | 2022-08-31 09:06 | Internal Med Progress Note ---
SUBJECTIVE Subjective Patient information: Note initiated : 08/31/22 at 9:03 am Service Date, if different from initiated Date: [] Patient: Elicia Ricks 66 y/o F admitted on 08/29/22 for n/v, diarrhea; sepsis, toxic metabolic . Chief Complaint: [] Principal diagnosis: Sepsis, toxic metabolic encephalopathy Interval history: The patient's pupils are pinpoint today. She remains altered. I spoke with the RN who states that she was quite agitated and then she had 2 visitors come in after that she became somnolent and calm. There is concerns that she ingested an illicit substance after the visit. Constitutional Vitals: Vital Signs Temp Pulse Resp BP Pulse Ox O2 Del Method O2 Flow Rate 98.9 F 103 H 20 115/64 94 Nasal Cannula 1 08/31/22 08:01 08/31/22 08:01 08/31/22 08:01 08/31/22 08:01 08/31/22 08:01 08/31/22 08:01 08/31/22 08:01 Period Temp Pulse Resp BP Sys/Garza Pulse Ox O2 Del Method O2 Flow Rate Last 24 Hr 97.3 F-98.9 F 85-106 15-26 80-115/54-75 88-100 Nasal Cannula- Room Air, Nasal Cannula 1-2 Intake and Output 08/30/22 08/31/22 08/31/22 19:59 03:59 11:59 Intake Total 988 1092 1072 Output Total 250 190 280 Balance 738 902 792 Weight 126.779 kg 128.321 kg Intake & Output: Intake & Output 08/30/22 08/31/22 08/31/22 19:59 03:59 11:59 Intake Total 988 1092 1072 Output Total 250 190 280 Balance 738 902 792 Weight 126.779 kg 128.321 kg Intake: IV 268 942 872 Lactated Ringers 1,000 ml @ 100 268 942 822 mls/hr IV .Q10H [facility] Rx#: [id number] Rocephin 2 gm In Dextrose 5% in 50 Water 50 ml @ 100 mls/hr IV Q24H [facility] Rx#:[id number] Oral 720 150 200 Output: Urine Catheter Amount 250 190 280 Other: Meal Dinner Percent of Meal Consumed 2 bites Feeding Ability Total Assistance Urine Appearance Cloudy Clear Clear Uretheral ([place]) Clear Urine Color Dark Alisha Light Alisha Dark Yellow Uretheral ([place]) Light Alisha General appearance: no acute distress and obese Head Head exam: Present normal inspection and normocephalic Eye Eye exam: Absent scleral icterus Pupils: Present fixed and miosis ENT ENT exam: Present mucous membranes moist Neck Neck exam: Present full ROM; Absent meningismus Respiratory Respiratory exam: Present normal respiratory exam Cardiovascular Cardiovascular exam: Present normal rate and rhythm, RRR, +S1 and +S2; Absent gallop, irregular rhythm, JVD or +S3 GI/Abdominal GI/Abdominal exam: Present normal bowel sounds Neurological Exam Neurological exam: Present alert and altered Psychiatric Psychiatric exam: Present normal affect and normal mood Skin Skin exam: Present dry OBJ DATA Labs 08/31/22 07:02 08/31/22 05:17 Labs: Abnormal Lab Results 08/31/22 08/31/22 08/30/22 07:02 05:17 05:10 WBC 17.0 H MCHC RDW 14.9 H Plt Count 44 L* Immature Gran % (Auto) 3.4 H Neut % (Auto) Lymph % (Auto) 4.4 L [place] % (Auto) 16.2 H Lymph # (Auto) 0.75 L [place] # (Auto) 2.75 H Seg Neutrophils % Lymphocytes % Immature Gran # 0.58 H Absolute Neutrophils 12.78 H Platelet Estimate POC VBG pH POC VBG pCO2 at Temp POC VBG HCO3 POC VBG Total CO2 POC VBG Base Excess Carbon Dioxide 20 L POC BUN BUN 32 H 26 H Creatinine 1.3 H 1.5 H POC Creatinine Glucose 106 H POC Glucose Calcium 8.2 L 8.2 L POC WB Ioniz Calcium Procalcitonin Urine Appearance Urine Protein Urine Glucose (UA) Urine Occult Blood Urine WBC Urine Bacteria Hyaline Casts Granular Casts Urine Mucus Ur Amphetamines Screen 08/30/22 08/29/22 08/29/22 05:10 11:52 11:52 WBC 15.5 H MCHC 30.7 L RDW Plt Count 80 L Immature Gran % (Auto) Neut % (Auto) Lymph % (Auto) [place] % (Auto) Lymph # (Auto) [place] # (Auto) Seg Neutrophils % 81 H Lymphocytes % 8 L Immature Gran # Absolute Neutrophils Platelet Estimate Decreased A POC VBG pH POC VBG pCO2 at Temp POC VBG HCO3 POC VBG Total CO2 POC VBG Base Excess Carbon Dioxide POC BUN BUN Creatinine POC Creatinine Glucose POC Glucose Calcium POC WB Ioniz Calcium Procalcitonin Urine Appearance Hazy A Urine Protein 100 A Urine Glucose (UA) >=500 A Urine Occult Blood >=1.0 A Urine WBC 8 H Urine Bacteria Few A Hyaline Casts 7 H Granular Casts 6 H Urine Mucus Few A Ur Amphetamines Screen Suspect positive A 08/29/22 08/29/22 08/29/22 10:52 10:51 10:45 WBC MCHC RDW Plt Count Immature Gran % (Auto) Neut % (Auto) Lymph % (Auto) [place] % (Auto) Lymph # (Auto) [place] # (Auto) Seg Neutrophils % Lymphocytes % Immature Gran # Absolute Neutrophils Platelet Estimate POC VBG pH 7.45 H POC VBG pCO2 at Temp 31.0 L POC VBG HCO3 21.5 L POC VBG Total CO2 22.0 L POC VBG Base Excess -3.0 L Carbon Dioxide POC BUN 29 H BUN Creatinine POC Creatinine 1.7 H Glucose POC Glucose 148 H Calcium POC WB Ioniz Calcium 1.11 L Procalcitonin 11.92 H Urine Appearance Urine Protein Urine Glucose (UA) Urine Occult Blood Urine WBC Urine Bacteria Hyaline Casts Granular Casts Urine Mucus Ur Amphetamines Screen 08/29/22 10:45 WBC 18.7 H MCHC RDW Plt Count 116 L Immature Gran % (Auto) 0.9 H Neut % (Auto) 82.6 H Lymph % (Auto) 6.7 L [place] % (Auto) Lymph # (Auto) 1.26 L [place] # (Auto) 1.66 H Seg Neutrophils % Lymphocytes % Immature Gran # 0.17 H Absolute Neutrophils 15.46 H Platelet Estimate POC VBG pH POC VBG pCO2 at Temp POC VBG HCO3 POC VBG Total CO2 POC VBG Base Excess Carbon Dioxide POC BUN BUN Creatinine POC Creatinine Glucose POC Glucose Calcium POC WB Ioniz Calcium Procalcitonin Urine Appearance Urine Protein Urine Glucose (UA) Urine Occult Blood Urine WBC Urine Bacteria Hyaline Casts Granular Casts Urine Mucus Ur Amphetamines Screen Meds: Medications Acetaminophen (Acetaminophen 325 Mg Tablet) 650 mg PO Q4-6HP PRN; Protocol PRN Reason: Per Pain Protocol/Fever > 101 Last Admin: 08/30/22 20:15 Dose: 650 mg Albuterol/Ipratropium (Ipratropium/Albuterol 3 Ml Ampul.Neb) 3 ml NEB Q6HP PRN PRN Reason: Shortness Of Breath Last Admin: 08/30/22 12:17 Dose: 3 ml Azithromycin (Azithromycin 250 Mg Tablet) 250 mg PO DAILY [facility]; Protocol Stop: 09/02/22 09:01 Last Admin: 08/30/22 09:52 Dose: 250 mg Dextrose (Dextrose 50% 50 Ml Vial) 0 ml IV UD PRN PRN Reason: Per Sliding Scale Diagnostic Test (Pha) (Accu-Chek 1 Each Strip) 1 each FS ACHS [facility] Last Admin: 08/31/22 07:36 Dose: 1 each Enoxaparin Sodium (Enoxaparin 40 Mg/0.4 Ml Syringe) 40 mg SQ DAILY [facility] Last Admin: 08/30/22 09:34 Dose: 40 mg Glucose (Dextrose 31 Gm Oral.Susp) 15 gm PO PRN PRN PRN Reason: Hypoglycemia Lactated Ringer's (Lactated Ringers) 1,000 mls @ 100 mls/hr IV .Q10H [facility] Last Admin: 08/31/22 07:38 Dose: 100 mls/hr Ceftriaxone Sodium 2 gm/ (Dextrose) 50 mls @ 100 mls/hr IV Q24H [facility] Last Infusion: 08/31/22 09:02 Dose: Infused Vancomycin HCl 1,500 mg/ (Sodium Chloride) 500 mls @ 333.3 mls/hr IV Q12H [facility] Last Admin: 08/31/22 08:23 Dose: 333.3 mls/hr Insulin Human Lispro (Insulin Lispro 1 Unit/0.01 Ml Unit) 0 unit SQ [facility]; Protocol Last Admin: 08/31/22 07:36 Dose: Not Given Levothyroxine Sodium (Levothyroxine 50 Mcg Tablet) 50 mcg PO DAILY [facility] Ondansetron HCl (Ondansetron 4 Mg/2 Ml Vial) 4 mg IV Q4-6HP PRN; Protocol PRN Reason: Nausea And Vomiting Buprenorphine- Naloxone 2-0.5 Mg Tablet, Sublingual 0.5 dose SL TID [facility] Sodium Chloride (0.9 % Sodium Chloride 10 Ml Syringe) 10 ml IV Q8 [facility] Last Admin: 08/31/22 04:32 Dose: 10 ml Vancomycin HCl (Vancomycin Per Pharmacy) 1 order IV UD [facility]; Protocol A/P Assessment and plan (1) CAP (community acquired pneumonia): Status: Acute (2) KWABENA (acute kidney injury): Status: Acute (3) COPD (chronic obstructive pulmonary disease): Status: Acute (4) Hypothyroidism: Status: Acute (5) Acute kidney injury with acute tubular necrosis: Status: Resolved (6) UTI (urinary tract infection): Status: Acute Narrative A/P Narrative: The patient is on multiple medications that can cause AMS (gabapentin, suboxone, methocarbomol). Her AMS was likely made worse by her underlying infection. She appears to have both a pneumonia and UTI. Will f/u on urine and blood cx. Will cover with CTX/zithromax. She has been resuscitated w/ IVF and will hold aldactone in the setting of KWABENA. Med rec is pending. 08/30: Her KWABENA is improved with IV fluids as has her blood pressure. In terms of her left lobar pneumonia seen on chest x-ray and a grossly abnormal UA, will obtain CT chest abdomen pelvis today. Continue ceftriaxone and Zithromax. We are holding her home sedatives due to altered mental status. Social work and case management will work on chemical dependency counseling and placement if needed. 08/31: CT chest abdomen pelvis yesterday revealed perinephric stranding around both kidneys which may be inflammation or prior episode of obstruction. She was also noted to have a mild pneumonia involving the lingula and left lower lobe. She was on ceftriaxone and Zithromax however vancomycin will be added today as her blood cultures came back positive for MRSA. I have consulted infectious disease for her MRSA bacteremia. Etiology is unclear. She does have a history of polysubstance abuse but it is unclear if she is IVDU. I have ordered an echocardiogram as well. Time Spent With Patient Time: Total time spent is greater than 50% in coordination of care (as documented) at patient's floor/unit and/or counseling patient: Initial: Total time with patient: 55 - 74 minutes QUALITY VTE Deep Vein Thrombosis/Pulmonary Embolism Present on Admission: No
[2022-08-31] MEDS: ENOXAPARIN 40 MG/0.4 ML SYRINGE SQ SCH (09:31)
[2022-08-31] MEDS: AZITHROMYCIN 250 MG TABLET PO SCH ×2 (10:13→10:33)
[2022-08-31] MEDS: LEVOTHYROXINE 50 MCG TABLET PO SCH ×2 (10:13→10:32)
[2022-08-31] MEDS: ACETAMINOPHEN 650 MG/65 ML BAG IV PRN ×2 (11:41→22:05)
[2022-08-31] MEDS: AZITHROMYCIN 250 MG in DEXTROSE 5% IN WATER 250 ML IV SCH (11:53)
[2022-08-31] MEDS ORDERED: LABETALOL 5 MG/ML ML IV PRN (13:31)
--- NOTE | 2022-08-31 13:37 | Internal Med Progress Note ---
SUBJECTIVE Subjective Patient information: Note initiated : 08/31/22 at 1:24 pm Service Date, if different from initiated Date: [] Patient: Elicia Ricks a 66 y/o F admitted on 08/29/22 for n/v, diarrhea; sepsis, toxic metabolic . Chief Complaint: [] Principal diagnosis: Sepsis, toxic metabolic encephalopathy Interval history: History of present illness: Ms. Ricks is a 66 year old F with a complex PMHx significant for polypharmacy, chronic opoid use disorder on Subonxone, DM2, COPDon home O2, hypothyroidism, and HTN who presents to the hospital w/ AMS. The patient was encephalopathic and hx was obtained second hard from chart review and from nursing. She was brought in via EMS. On arrival, she was HD stable but febrile. She was found to have grossly positive UA and infiltrate on CXR. The patient was also noted to have KWABENA. The hospitalist service was asked to admit her for further mx and evaluation of her toxic metabolic encephalopathy and sepsis. 08/31 The patient's pupils are pinpoint today. She remains altered. I spoke with the RN who states that she was quite agitated and then she had 2 visitors come in after that she became somnolent and calm. There is concerns that she ingested an illicit substance after the visit. 09/01 Review of Systems: denies headache/fever/chills/nausea/vomiting/chest or abdominal pain/cough/dyspnea/diarrhea. Otherwise see above. PHYSICAL EXAM General: Alert, Awake, No acute Distress, obese Eyes/N/T: EOMI, no scleral icterus, Head/Neck: neck supple, full ROM, CV: RRR, No murmurs, Pulm: Clear b/l, no wheezing/rhonchi/rales, no respiratory distress Abd: soft, nontender, +BS x4 Ext: no clubbing/cyanosis, edema, nontender Neuro: Alert, no focal deficits, moves all extremities, sensations intact b/l upper/lower Psychiatric: Skin: warm/dry, normal color Constitutional Vitals: Vital Signs Temp Pulse Resp BP Pulse Ox O2 Del Method O2 Flow Rate 99.3 F H 100 H 24 H 114/55 91 Nasal Cannula 2 08/31/22 12:00 08/31/22 12:11 08/31/22 12:11 08/31/22 12:01 08/31/22 12:11 08/31/22 10:28 08/31/22 10:28 Period Temp Pulse Resp BP Sys/Garza Pulse Ox O2 Del Method O2 Flow Rate Last 24 Hr 97.3 F-100.5 F 85-104 15-24 80-115/54-75 91-100 Nasal Cannula- Room Air 1-2 Intake and Output 08/31/22 08/31/22 08/31/22 03:59 11:59 19:59 Intake Total 1092 1872 315 Output Total 190 420 Balance 902 1452 315 Weight 128.321 kg Intake & Output: Intake & Output 08/31/22 08/31/22 08/31/22 03:59 11:59 19:59 Intake Total 1092 1872 315 Output Total 190 420 Balance 902 1452 315 Weight 128.321 kg Intake: IV 942 1372 315 Zithromax 250 mg In Dextrose 5% 250 in Water 250 ml @ 250 mls/hr IV Q24H [facility] Rx#:[id number] Lactated Ringers 1,000 ml @ 100 942 822 mls/hr IV .Q10H [facility] Rx#: [id number] Vancomycin 1,500 mg In Sodium 500 Chloride 0.9% 500 ml @ 333.3 mls/hr IV Q12H [facility] Rx#: [id number] Rocephin 2 gm In Dextrose 5% in 50 Water 50 ml @ 100 mls/hr IV Q24H [facility] Rx#:[id number] Oral 150 500 Output: Urine Catheter Amount 190 420 Other: Urine Appearance Clear Cloudy Uretheral ([place]) Clear Cloudy Urine Color Light Alisha Dark Yellow Uretheral ([place]) Light Alisha Light Alisha Urine Odor Normal OBJ DATA Labs 08/31/22 07:02 08/31/22 05:17 Labs: Abnormal Lab Results 08/31/22 08/31/22 08/30/22 07:02 05:17 05:10 WBC 17.0 H MCHC RDW 14.9 H Plt Count 44 L* Immature Gran % (Auto) 3.4 H Neut % (Auto) Lymph % (Auto) 4.4 L [place] % (Auto) 16.2 H Lymph # (Auto) 0.75 L [place] # (Auto) 2.75 H Seg Neutrophils % Lymphocytes % Immature Gran # 0.58 H Absolute Neutrophils 12.78 H Platelet Estimate POC VBG pH POC VBG pCO2 at Temp POC VBG HCO3 POC VBG Total CO2 POC VBG Base Excess Carbon Dioxide 20 L POC BUN BUN 32 H 26 H Creatinine 1.3 H 1.5 H POC Creatinine Glucose 106 H POC Glucose Calcium 8.2 L 8.2 L POC WB Ioniz Calcium Procalcitonin Urine Appearance Urine Protein Urine Glucose (UA) Urine Occult Blood Urine WBC Urine Bacteria Hyaline Casts Granular Casts Urine Mucus Ur Amphetamines Screen 08/30/22 08/29/22 08/29/22 05:10 11:52 11:52 WBC 15.5 H MCHC 30.7 L RDW Plt Count 80 L Immature Gran % (Auto) Neut % (Auto) Lymph % (Auto) [place] % (Auto) Lymph # (Auto) [place] # (Auto) Seg Neutrophils % 81 H Lymphocytes % 8 L Immature Gran # Absolute Neutrophils Platelet Estimate Decreased A POC VBG pH POC VBG pCO2 at Temp POC VBG HCO3 POC VBG Total CO2 POC VBG Base Excess Carbon Dioxide POC BUN BUN Creatinine POC Creatinine Glucose POC Glucose Calcium POC WB Ioniz Calcium Procalcitonin Urine Appearance Hazy A Urine Protein 100 A Urine Glucose (UA) >=500 A Urine Occult Blood >=1.0 A Urine WBC 8 H Urine Bacteria Few A Hyaline Casts 7 H Granular Casts 6 H Urine Mucus Few A Ur Amphetamines Screen Suspect positive A 08/29/22 08/29/22 08/29/22 10:52 10:51 10:45 WBC MCHC RDW Plt Count Immature Gran % (Auto) Neut % (Auto) Lymph % (Auto) [place] % (Auto) Lymph # (Auto) [place] # (Auto) Seg Neutrophils % Lymphocytes % Immature Gran # Absolute Neutrophils Platelet Estimate POC VBG pH 7.45 H POC VBG pCO2 at Temp 31.0 L POC VBG HCO3 21.5 L POC VBG Total CO2 22.0 L POC VBG Base Excess -3.0 L Carbon Dioxide POC BUN 29 H BUN Creatinine POC Creatinine 1.7 H Glucose POC Glucose 148 H Calcium POC WB Ioniz Calcium 1.11 L Procalcitonin 11.92 H Urine Appearance Urine Protein Urine Glucose (UA) Urine Occult Blood Urine WBC Urine Bacteria Hyaline Casts Granular Casts Urine Mucus Ur Amphetamines Screen 08/29/22 10:45 WBC 18.7 H MCHC RDW Plt Count 116 L Immature Gran % (Auto) 0.9 H Neut % (Auto) 82.6 H Lymph % (Auto) 6.7 L [place] % (Auto) Lymph # (Auto) 1.26 L [place] # (Auto) 1.66 H Seg Neutrophils % Lymphocytes % Immature Gran # 0.17 H Absolute Neutrophils 15.46 H Platelet Estimate POC VBG pH POC VBG pCO2 at Temp POC VBG HCO3 POC VBG Total CO2 POC VBG Base Excess Carbon Dioxide POC BUN BUN Creatinine POC Creatinine Glucose POC Glucose Calcium POC WB Ioniz Calcium Procalcitonin Urine Appearance Urine Protein Urine Glucose (UA) Urine Occult Blood Urine WBC Urine Bacteria Hyaline Casts Granular Casts Urine Mucus Ur Amphetamines Screen Meds: Medications Acetaminophen (Acetaminophen 325 Mg Tablet) 650 mg PO Q4-6HP PRN; Protocol PRN Reason: Per Pain Protocol/Fever > 101 Last Admin: 08/30/22 20:15 Dose: 650 mg Albuterol/Ipratropium (Ipratropium/Albuterol 3 Ml Ampul.Neb) 3 ml NEB Q6HP PRN PRN Reason: Shortness Of Breath Last Admin: 08/30/22 12:17 Dose: 3 ml Dextrose (Dextrose 50% 50 Ml Vial) 0 ml IV UD PRN PRN Reason: Per Sliding Scale Diagnostic Test (Pha) (Accu-Chek 1 Each Strip) 1 each FS ACHS [facility] Last Admin: 08/31/22 11:30 Dose: 1 each Enoxaparin Sodium (Enoxaparin 40 Mg/0.4 Ml Syringe) 40 mg SQ DAILY [facility] Last Admin: 08/31/22 09:31 Dose: Not Given Glucose (Dextrose 31 Gm Oral.Susp) 15 gm PO PRN PRN PRN Reason: Hypoglycemia Lactated Ringer's (Lactated Ringers) 1,000 mls @ 100 mls/hr IV .Q10H [facility] Last Admin: 08/31/22 07:38 Dose: 100 mls/hr Ceftriaxone Sodium 2 gm/ (Dextrose) 50 mls @ 100 mls/hr IV Q24H [facility] Last Infusion: 08/31/22 09:02 Dose: Infused Vancomycin HCl 1,500 mg/ (Sodium Chloride) 500 mls @ 333.3 mls/hr IV Q12H [facility] Last Infusion: 08/31/22 10:27 Dose: Infused Acetaminophen (Ofirmev) 650 mg in 65 mls @ 130 mls/hr IV Q6HP PRN; Protocol PRN Reason: PAIN/FEVER > 101 Last Infusion: 08/31/22 12:51 Dose: Infused Azithromycin 250 mg/ Dextrose 250 mls @ 250 mls/hr IV Q24H [facility]; Protocol Stop: 09/02/22 12:59 Last Infusion: 08/31/22 13:06 Dose: Infused Insulin Human Lispro (Insulin Lispro 1 Unit/0.01 Ml Unit) 0 unit SQ ACHS [facility]; Protocol Last Admin: 08/31/22 12:08 Dose: Not Given Levothyroxine Sodium (Levothyroxine 50 Mcg Tablet) 50 mcg PO DAILY [facility] Last Admin: 08/31/22 10:32 Dose: Not Given Ondansetron HCl (Ondansetron 4 Mg/2 Ml Vial) 4 mg IV Q4-6HP PRN; Protocol PRN Reason: Nausea And Vomiting Buprenorphine- Naloxone 2-0.5 Mg Tablet, Sublingual 0.5 dose SL TID [facility] Last Admin: 08/31/22 12:15 Dose: 0.5 dose Sodium Chloride (0.9 % Sodium Chloride 10 Ml Syringe) 10 ml IV Q8 [facility] Last Admin: 08/31/22 04:32 Dose: 10 ml Vancomycin HCl (Vancomycin Per Pharmacy) 1 order IV UD [facility]; Protocol A/P Narrative A/P Narrative: A: *CAP: *Acute hypoxic respite failure: -on 1-2L NC *Bacteremia (MRSA): *UTI(E. coli): *Sepsis: -Leukocytosis *Encephalopathy: *KWABENA on CKD III: *Thrombocytopenia, acute: *COPD(not on home O2): *chronic back/joint pain & neuropathy: *Substance abuse: With methamphetamine *HTN/HLD: *DM2 w/neuropathy: *Hypothyroidism: Continue home Synthroid *GERD: *Morbid obesity: BMI 46 P: -Telemetry ID consulted -Currently on Rocephin/azithromycin/vancomycin -Echo pending -Serial BC -Monitor urine output/renal function -ivf d/c -ACEI/Aldactone held for KWABENA -Continue home inhalers -SSI -IS/Acapella -Substance abuse counseling -PT/OT -ppx: Lovenox(hold for plt<50k) /home PPI Time Spent With Patient Time: Total time spent is greater than 50% in coordination of care (as documented) at patient's floor/unit and/or counseling patient: QUALITY VTE Deep Vein Thrombosis/Pulmonary Embolism Present on Admission: No
[2022-08-31] MEDS ORDERED: METHOCARBAMOL 1,000 MG/10 ML VIAL IV ONE (15:10)
--- NOTE | 2022-08-31 16:47 | Infectious Disease Consult ---
Telemedicine Intake Start Time: 04:50 (PM PST ) End Time: 05:30 (PM PST ) Location of Provider: Home Patient location: Intensive Care Unit HPI Date of Consult Consult Date: 08/31/22 Requesting physician: Jg Chamorro Consult Narrative Reason for consult: Bacteremia History of present illness: This is a 66y/o female PMHx morbid obesity, chronic opoid use disorder on Suboxone, DM2, COPD on home O2, hypothyroidism, recurrent UTIs, and HTN admitted on 08/29 after presenting with altered mental status, with associated nausea and vomiting for the past few days.As per ER records, she complained of back pain. As reported by EMS, witnessed an episode of vomit and diarrhea. Upon initial evaluation, pt was found febrile (tmax 101.9F), tachypneic (26/min), tachycardic (115bpm), hypotensive (83/62mmHg). On labs with marked leukocytosis (18.5k), UA+hazy, 8 wbc, nit neg, leuk neg, SCr 1.7 CXR c/w left lower lobe pneumonia. CT A/P without contrast c/w mild pneumonia involving lingula and LLL and moderate perinephric fat surrounding both kidneys, collection of small bubbles in the subcutaneous fat of the pelvis. UCx growing E. coli, BCx growing MRSA. Pt is currently on IV Vancomycin + Cef triaxone + Azithromycin. Review of Systems ROS unobtainable: due to mental status Constitutional Constitutional: Present as per HPI PFSH PFSH All Active Problems (Updated 08/31/22 @ 17:25 by Sarah Caldera MD) E. coli pyelonephritis (Acute) Pneumonia involving left lung (Acute) MRSA (methicillin resistant Staphylococcus aureus) septicemia (Acute) CAP (community acquired pneumonia) (Acute) Acute dehydration (Acute) AMS (altered mental status) (Acute) KWABENA (acute kidney injury) (Acute) Localized edema due to fluid overload (Chronic) GERD (gastroesophageal reflux disease) (Acute) Mixed dyslipidemia (Acute) Essential (primary) hypertension (Acute) COPD (chronic obstructive pulmonary disease) (Acute) Hypothyroidism (Acute) Elevated white blood cell count (Acute) Nausea and vomiting (Acute) Diarrhea (Acute) Anemia, normocytic normochromic (Acute) UTI (urinary tract infection) (Acute) Social History (Updated 04/22/21 @ 09:37 by Ledy Franklin [facility]) smoking status: Never smoker alcohol intake frequency: holiday/special occasion only MEDS/ALLERGIES Home Medications and Allergies Home Medications Medication Instructions Recorded Confirmed Type albuterol sulfate 2.5 mg/3 mL 2.5 mg inhalation PRN PRN 03/10/21 08/29/22 History (0.083 %) solution for nebulization Shortness Of Breath atorvastatin 40 mg tablet 40 mg PO HS 03/10/21 08/29/22 History cetirizine 10 mg tablet 10 mg PO HS 03/10/21 08/29/22 History gabapentin 600 mg tablet 600 mg PO BID 03/10/21 08/29/22 History levothyroxine 50 mcg tablet 50 mcg PO DAILY 03/10/21 08/29/22 History meclizine 25 mg tablet 25 mg PO TIDP PRN Dizziness 03/10/21 08/29/22 History montelukast 10 mg tablet 10 mg PO HS 03/10/21 08/29/22 History omeprazole 20 mg capsule,delayed 20 mg PO BIDAC 03/10/21 08/29/22 History release aspirin 81 mg tablet,delayed 81 mg PO DAILY 08/29/22 08/29/22 History release budesonide-formoterol HFA 160 2 puff inhalation BIDP PRN asthma 08/29/22 08/29/22 History mcg-4.5 mcg/actuation aerosol inhaler (Symbicort) buprenorphine 2 mg-naloxone 0.5 mg 1 tab sublingual TID pain 08/29/22 08/29/22 History sublingual tablet diclofenac sodium 1 % topical gel 2 g topical QID 08/29/22 08/29/22 History empagliflozin 10 mg tablet 10 mg PO QDAY 08/29/22 08/29/22 History (Jardiance) fluticasone propionate 50 2 spray intranasal QDAY 08/29/22 08/29/22 History mcg/actuation nasal spray,suspension liraglutide 0.6 mg/0.1 mL (18 mg/3 1.8 mg subcut QDAY 08/29/22 08/29/22 History mL) subcutaneous pen injector ([facility]) lisinopril 10 mg tablet 10 mg PO QDAY 08/29/22 08/29/22 History magnesium oxide 500 mg tablet 500 mg PO QDAY 08/29/22 08/29/22 History methocarbamol 500 mg tablet 500 mg PO QID 08/29/22 08/29/22 History spironolactone 50 mg tablet 50 mg PO QDAY 08/29/22 08/29/22 History Allergies Allergy/AdvReac Type Severity Reaction Status Date / Time No Known Drug Allergies Allergy Verified 04/22/21 09:31 Physical Examination Vital Signs Vital signs: Temp Pulse Resp BP Pulse Ox O2 Del Method O2 Flow Rate 98.4 F 85 21 103/61 94 Nasal Cannula 2 08/31/22 15:50 08/31/22 15:56 08/31/22 15:56 08/31/22 14:01 08/31/22 15:56 08/31/22 14:00 08/31/22 14:00 Constitutional General appearance: other (Patient is drowsy, decreased level of consciousness but has some arousal to verbal stimuli; morbidly obese ) Gastrointestinal Gastrointestinal: non-distended and other (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 ) Integumentary Integumentary: other (right groin wound draining serosanguinous fluid ) Musculoskeletal Musculoskeletal: no deformities Neurologic Neurological: unable to assess due to mental status Results Laboratory Findings 08/31/22 07:02 08/31/22 05:17 Abnormal lab findings: Abnormal Labs 08/29/22 08/29/22 08/29/22 10:45 10:45 10:51 WBC 18.7 H MCHC RDW Plt Count 116 L Immature Gran % (Auto) 0.9 H Neut % (Auto) 82.6 H Lymph % (Auto) 6.7 L [place] % (Auto) Lymph # (Auto) 1.26 L [place] # (Auto) 1.66 H Seg Neutrophils % Lymphocytes % Immature Gran # 0.17 H Absolute Neutrophils 15.46 H Platelet Estimate POC VBG pH POC VBG pCO2 at Temp POC VBG HCO3 POC VBG Total CO2 POC VBG Base Excess Carbon Dioxide POC BUN 29 H BUN Creatinine POC Creatinine 1.7 H Glucose POC Glucose 148 H Calcium POC WB Ioniz Calcium 1.11 L Procalcitonin 11.92 H Urine Appearance Urine Protein Urine Glucose (UA) Urine Occult Blood Urine WBC Urine Bacteria Hyaline Casts Granular Casts Urine Mucus Ur Amphetamines Screen 08/29/22 08/29/22 08/29/22 10:52 11:52 11:52 WBC MCHC RDW Plt Count Immature Gran % (Auto) Neut % (Auto) Lymph % (Auto) [place] % (Auto) Lymph # (Auto) [place] # (Auto) Seg Neutrophils % Lymphocytes % Immature Gran # Absolute Neutrophils Platelet Estimate POC VBG pH 7.45 H POC VBG pCO2 at Temp 31.0 L POC VBG HCO3 21.5 L POC VBG Total CO2 22.0 L POC VBG Base Excess -3.0 L Carbon Dioxide POC BUN BUN Creatinine POC Creatinine Glucose POC Glucose Calcium POC WB Ioniz Calcium Procalcitonin Urine Appearance Hazy A Urine Protein 100 A Urine Glucose (UA) >=500 A Urine Occult Blood >=1.0 A Urine WBC 8 H Urine Bacteria Few A Hyaline Casts 7 H Granular Casts 6 H Urine Mucus Few A Ur Amphetamines Screen Suspect positive A 08/30/22 08/30/22 08/31/22 05:10 05:10 05:17 WBC 15.5 H MCHC 30.7 L RDW Plt Count 80 L Immature Gran % (Auto) Neut % (Auto) Lymph % (Auto) [place] % (Auto) Lymph # (Auto) [place] # (Auto) Seg Neutrophils % 81 H Lymphocytes % 8 L Immature Gran # Absolute Neutrophils Platelet Estimate Decreased A POC VBG pH POC VBG pCO2 at Temp POC VBG HCO3 POC VBG Total CO2 POC VBG Base Excess Carbon Dioxide 20 L POC BUN BUN 26 H 32 H Creatinine 1.5 H 1.3 H POC Creatinine Glucose 106 H POC Glucose Calcium 8.2 L 8.2 L POC WB Ioniz Calcium Procalcitonin Urine Appearance Urine Protein Urine Glucose (UA) Urine Occult Blood Urine WBC Urine Bacteria Hyaline Casts Granular Casts Urine Mucus Ur Amphetamines Screen 08/31/22 07:02 WBC 17.0 H MCHC RDW 14.9 H Plt Count 44 L* Immature Gran % (Auto) 3.4 H Neut % (Auto) Lymph % (Auto) 4.4 L [place] % (Auto) 16.2 H Lymph # (Auto) 0.75 L [place] # (Auto) 2.75 H Seg Neutrophils % Lymphocytes % Immature Gran # 0.58 H Absolute Neutrophils 12.78 H Platelet Estimate POC VBG pH POC VBG pCO2 at Temp POC VBG HCO3 POC VBG Total CO2 POC VBG Base Excess Carbon Dioxide POC BUN BUN Creatinine POC Creatinine Glucose POC Glucose Calcium POC WB Ioniz Calcium Procalcitonin Urine Appearance Urine Protein Urine Glucose (UA) Urine Occult Blood Urine WBC Urine Bacteria Hyaline Casts Granular Casts Urine Mucus Ur Amphetamines Screen Microbiology: Microbiology 08/29/22 11:51 Urine - Catheterized Urine Culture - Final Escherichia coli 08/29/22 10:55 Blood Blood Culture - Final Methicillin resistant s.aureus 08/29/22 10:50 Blood Blood Culture - Final Methicillin resistant s.aureus 08/29/22 13:05 Nasopharynx SARS-CoV-2, Influenza & RSV (PCR) - Final 08/29/22 13:05 Nasopharynx Coronavirus COVID-19 PCR - Final Diagnostic Findings Chest x-ray: report reviewed CT scan - chest: report reviewed A/P Assessment and plan (1) MRSA (methicillin resistant Staphylococcus aureus) septicemia: Assessment and plan: This is a 66y/o female PMHx morbid obesity, chronic opoid use disorder on Suboxone, DM2, COPD on home O2, hypothyroidism, recurrent UTIs, and HTN admitted on 08/29 after presenting with altered mental status, nausea, vomit, diarrhea, and back pain.On admission, pt febrile, tachypneic, tachycardic, hypotensive. On labs with marked leukocytosis (18.5k), UA+, KWABENA, CXR+ LLL, CT A/P without contrast c/w mild pneumonia involving lingula and LLL and moderate perinephric fat surrounding both kidneys, collection of small bubbles in the subcutaneous fat of the pelvis. UCx growing E. coli, BCx growing MRSA. Plan: - agree with Vancomycin 1500mg IV q12hrs, monitor vanco trough levels to keep range between 15-20 - agree with Ceftriaxone 2g IV daily for now - agree with Azithromycin 500mg x 1 dose, then 250mg IV daily x 4 doses - follow up Echocardiogram results (pending), if results are inconclusive or poor acoustic window, will require SAILAJA when stable to rule out endocarditis - obtain pelvic MRI to rule out OM/Abscess - follow up repeat blood culture results Status: Acute (2) Pneumonia involving left lung: Status: Acute (3) E. coli pyelonephritis: Status: Acute Time Spent With Patient Time: Total time spent is greater than 50% in coordination of care (as documented) at patient's floor/unit and/or counseling patient: Initial: Total time with patient: 40 - 54 minutes Critical Care Time: Yes Total Critical Care Time: 40 (mins) Attestation: Sarah Caldera MD
[2022-09-01] MEDS: 0.9 % SODIUM CHLORIDE 10 ML SYRINGE IV SCH ×6 (04:54→23:50)
[2022-09-01 06:39] LABS: Basophils # (Auto) 0.08 K/mcL (0.00-0.30); Basophils % (Auto) 0.4 % (0.0-2.0); Eosinophils # (Auto) 0.06 K/mcL (0.00-0.70); Eosinophils % (Auto) 0.3 % (0.0-7.0); Hematocrit 37.2 % (34.1-44.9); Hemoglobin 11.5 g/dL (11.2-15.7); Lymphocytes # (Auto) 1.24 K/mcL (1.50-4.80); Lymphocytes % (Auto) 6.8 % (15.5-49.0); Mean Cell Volume 94.4 fL (80.0-100.0); Mean Corpuscular HGB Conc 30.9 g/dL (31.0-36.0); Mean Platelet Volume 11.6 fL (8.8-12.5); Monocytes # (Auto) 3.45 K/mcL (0.10-0.90); Neutrophils % (Auto) 67.8 % (38.0-78.0); Platelet Count 38 K/mcL (140-440); RBC 3.94 M/mcL (3.59-5.38); Red Cell Distribution Width 15.3 % (11.5-14.5); WBC 18.1 K/mcL (4.5-11.0)
[2022-09-01] MEDS: ACETAMINOPHEN 650 MG/65 ML BAG IV PRN (06:53)
--- NOTE | 2022-09-01 07:31 | Internal Med Progress Note ---
SUBJECTIVE Subjective Patient information: Note initiated : 09/01/22 at 7:25 am Service Date, if different from initiated Date: [] Patient: Elicia Ricks a 66 y/o F admitted on 08/29/22 for n/v, diarrhea; sepsis, toxic metabolic . Chief Complaint: [] Principal diagnosis: Sepsis, toxic metabolic encephalopathy Interval history: History of present illness: Ms. Ricks is a 66 year old F with a complex PMHx significant for polypharmacy, chronic opoid use disorder on Subonxone, DM2, COPDon home O2, hypothyroidism, and HTN who presents to the hospital w/ AMS. The patient was encephalopathic and hx was obtained second hard from chart review and from nursing. She was brought in via EMS. On arrival, she was HD stable but febrile. She was found to have grossly positive UA and infiltrate on CXR. The patient was also noted to have KWABENA. The hospitalist service was asked to admit her for further mx and evaluation of her toxic metabolic encephalopathy and sepsis. 08/31 The patient's pupils are pinpoint today. She remains altered. I spoke with the RN who states that she was quite agitated and then she had 2 visitors come in after that she became somnolent and calm. There is concerns that she ingested an illicit substance after the visit. 09/01 Patient is quite drowsy but does awaken easily to voice. No new complaints. Seems to be on room air this morning. Thrombocytopenia mildly worsened. The persistent leukocytosis slightly worse. Creatinine worsened. Repeat renal ultrasound pending urine studies pending IV fluids today. Hypomagnesemia and replace. Procalcitonin improving. Chemistry report incorrect. Just received updated lab report showing creatinine stable. And magnesium was not low. BC from , but pt had not been on Vanco up until that point. Review of Systems: denies headache/fever/chills/nausea/vomiting/chest or abdominal pain/diarrhea. Otherwise see above. PHYSICAL EXAM General: Awake, No acute Distress, obese Eyes/N/T: EOMI, no scleral icterus, Head/Neck: neck supple, full ROM, CV: Regular with occasional irregularity, No murmurs, Pulm: Clear b/l, no wheezing/rhonchi/rales, no respiratory distress Abd: soft, nontender, +BS x4 Ext: no clubbing/cyanosis, mile b/l LE edema, nontender Neuro: Drowsy,, no focal deficits, moves all extremities, sensations intact b/l upper/lower Psychiatric: Skin: warm/dry, normal color Constitutional Vitals: Vital Signs Temp Pulse Resp BP Pulse Ox O2 Del Method O2 Flow Rate 98.3 F 42 L 17 113/59 93 Nasal Cannula 1 09/01/22 04:01 09/01/22 06:01 09/01/22 06:01 09/01/22 06:01 09/01/22 06:01 09/01/22 06:01 09/01/22 06:01 Period Temp Pulse Resp BP Sys/Garza Pulse Ox O2 Del Method O2 Flow Rate Last 24 Hr 97.3 F-100.5 F 42-104 16-24 99-115/54-69 91-96 Nasal Cannula- Nasal Cannula 1-2 Intake and Output 08/31/22 09/01/22 09/01/22 19:59 03:59 11:59 Intake Total 1292 715 200 Output Total 160 280 140 Balance 1132 435 60 Weight 128.321 kg Intake & Output: Intake & Output 08/31/22 09/01/22 09/01/22 19:59 03:59 11:59 Intake Total 1292 715 200 Output Total 160 280 140 Balance 1132 435 60 Weight 128.321 kg Intake: IV 1292 565 Zithromax 250 mg In Dextrose 5% 250 in Water 250 ml @ 250 mls/hr IV Q24H LINDA Rx#:[id number] Lactated Ringers 1,000 ml @ 100 977 mls/hr IV .Q10H LINDA Rx#: [id number] Vancomycin 1,500 mg In Sodium 500 Chloride 0.9% 500 ml @ 333.3 mls/hr IV Q12H LINDA Rx#: [id number] Oral 150 200 Output: Urine Catheter Amount 160 280 140 Other: Meal Glucerna Percent of Meal Consumed 75% Feeding Ability Total Assistance Urine Appearance Cloudy Cloudy Uretheral ([place]) Cloudy Urine Color Dark Yellow Light Alisha Light Alisha Uretheral ([place]) Light Alisha Urine Odor Normal Normal Normal OBJ DATA Labs 09/01/22 05:17 09/01/22 05:17 Labs: Abnormal Lab Results 09/01/22 09/01/22 08/31/22 05:17 05:17 07:02 WBC 18.1 H 17.0 H MCHC 30.9 L RDW 15.3 H 14.9 H Plt Count 38 L* 44 L* Immature Gran % (Auto) 5.7 H 3.4 H Neut % (Auto) Lymph % (Auto) 6.8 L 4.4 L [place] % (Auto) 19.0 H 16.2 H Lymph # (Auto) 1.24 L 0.75 L [place] # (Auto) 3.45 H 2.75 H Seg Neutrophils % Lymphocytes % Immature Gran # 1.04 H 0.58 H Absolute Neutrophils 12.26 H 12.78 H Platelet Estimate POC VBG pH POC VBG pCO2 at Temp POC VBG HCO3 POC VBG Total CO2 POC VBG Base Excess Carbon Dioxide 21 L POC BUN BUN 43 H Creatinine 1.9 H POC Creatinine Glucose 127 H POC Glucose Calcium POC WB Ioniz Calcium Magnesium 1.4 L Procalcitonin Urine Appearance Urine Protein Urine Glucose (UA) Urine Occult Blood Urine WBC Urine Bacteria Hyaline Casts Granular Casts Urine Mucus Ur Amphetamines Screen 08/31/22 08/30/22 08/30/22 05:17 05:10 05:10 WBC 15.5 H MCHC 30.7 L RDW Plt Count 80 L Immature Gran % (Auto) Neut % (Auto) Lymph % (Auto) [place] % (Auto) Lymph # (Auto) [place] # (Auto) Seg Neutrophils % 81 H Lymphocytes % 8 L Immature Gran # Absolute Neutrophils Platelet Estimate Decreased A POC VBG pH POC VBG pCO2 at Temp POC VBG HCO3 POC VBG Total CO2 POC VBG Base Excess Carbon Dioxide 20 L POC BUN BUN 32 H 26 H Creatinine 1.3 H 1.5 H POC Creatinine Glucose 106 H POC Glucose Calcium 8.2 L 8.2 L POC WB Ioniz Calcium Magnesium Procalcitonin Urine Appearance Urine Protein Urine Glucose (UA) Urine Occult Blood Urine WBC Urine Bacteria Hyaline Casts Granular Casts Urine Mucus Ur Amphetamines Screen 08/29/22 08/29/22 08/29/22 11:52 11:52 10:52 WBC MCHC RDW Plt Count Immature Gran % (Auto) Neut % (Auto) Lymph % (Auto) [place] % (Auto) Lymph # (Auto) [place] # (Auto) Seg Neutrophils % Lymphocytes % Immature Gran # Absolute Neutrophils Platelet Estimate POC VBG pH 7.45 H POC VBG pCO2 at Temp 31.0 L POC VBG HCO3 21.5 L POC VBG Total CO2 22.0 L POC VBG Base Excess -3.0 L Carbon Dioxide POC BUN BUN Creatinine POC Creatinine Glucose POC Glucose Calcium POC WB Ioniz Calcium Magnesium Procalcitonin Urine Appearance Hazy A Urine Protein 100 A Urine Glucose (UA) >=500 A Urine Occult Blood >=1.0 A Urine WBC 8 H Urine Bacteria Few A Hyaline Casts 7 H Granular Casts 6 H Urine Mucus Few A Ur Amphetamines Screen Suspect positive A 08/29/22 08/29/22 08/29/22 10:51 10:45 10:45 WBC 18.7 H MCHC RDW Plt Count 116 L Immature Gran % (Auto) 0.9 H Neut % (Auto) 82.6 H Lymph % (Auto) 6.7 L [place] % (Auto) Lymph # (Auto) 1.26 L [place] # (Auto) 1.66 H Seg Neutrophils % Lymphocytes % Immature Gran # 0.17 H Absolute Neutrophils 15.46 H Platelet Estimate POC VBG pH POC VBG pCO2 at Temp POC VBG HCO3 POC VBG Total CO2 POC VBG Base Excess Carbon Dioxide POC BUN 29 H BUN Creatinine POC Creatinine 1.7 H Glucose POC Glucose 148 H Calcium POC WB Ioniz Calcium 1.11 L Magnesium Procalcitonin 11.92 H Urine Appearance Urine Protein Urine Glucose (UA) Urine Occult Blood Urine WBC Urine Bacteria Hyaline Casts Granular Casts Urine Mucus Ur Amphetamines Screen Meds: Medications Acetaminophen (Acetaminophen 325 Mg Tablet) 650 mg PO Q4-6HP PRN; Protocol PRN Reason: Per Pain Protocol/Fever > 101 Last Admin: 08/30/22 20:15 Dose: 650 mg Albuterol/Ipratropium (Ipratropium/Albuterol 3 Ml Ampul.Neb) 3 ml NEB Q6HP PRN PRN Reason: Shortness Of Breath Last Admin: 08/30/22 12:17 Dose: 3 ml Dextrose (Dextrose 50% 50 Ml Vial) 0 ml IV UD PRN PRN Reason: Per Sliding Scale Diagnostic Test (Pha) (Accu-Chek 1 Each Strip) 1 each FS ACHS LINDA Last Admin: 08/31/22 20:26 Dose: 1 each Glucose (Dextrose 31 Gm Oral.Susp) 15 gm PO PRN PRN PRN Reason: Hypoglycemia Ceftriaxone Sodium 2 gm/ (Dextrose) 50 mls @ 100 mls/hr IV Q24H [facility] Last Infusion: 08/31/22 09:02 Dose: Infused Vancomycin HCl 1,500 mg/ (Sodium Chloride) 500 mls @ 333.3 mls/hr IV Q12H [facility] Last Infusion: 08/31/22 22:08 Dose: Infused Acetaminophen (Ofirmev) 650 mg in 65 mls @ 130 mls/hr IV Q6HP PRN; Protocol PRN Reason: PAIN/FEVER > 101 Last Admin: 09/01/22 06:53 Dose: 130 mls/hr Azithromycin 250 mg/ Dextrose 250 mls @ 250 mls/hr IV Q24H [facility]; Protocol Stop: 09/02/22 12:59 Last Infusion: 08/31/22 13:06 Dose: Infused Insulin Human Lispro (Insulin Lispro 1 Unit/0.01 Ml Unit) 0 unit SQ ACHS [facility]; Protocol Last Admin: 08/31/22 20:26 Dose: Not Given Labetalol HCl (Labetalol 5 Mg/Ml Ml) 0 mg IV Q2HP PRN PRN Reason: Hypertension Levothyroxine Sodium (Levothyroxine 50 Mcg Tablet) 50 mcg PO DAILY [facility] Last Admin: 08/31/22 10:32 Dose: Not Given Ondansetron HCl (Ondansetron 4 Mg/2 Ml Vial) 4 mg IV Q4-6HP PRN; Protocol PRN Reason: Nausea And Vomiting Buprenorphine- Naloxone 2-0.5 Mg Tablet, Sublingual 0.5 dose SL TID [facility] Last Admin: 09/01/22 02:45 Dose: Not Given Sodium Chloride (0.9 % Sodium Chloride 10 Ml Syringe) 10 ml IV Q8 [facility] Last Admin: 09/01/22 04:54 Dose: 10 ml Vancomycin HCl (Vancomycin Per Pharmacy) 1 order IV UD [facility]; Protocol A/P Narrative A/P Narrative: A: *CAP: *Acute hypoxic respite failure: 2/2 above -down to 1L NC *Bacteremia (MRSA): -echo no vegetations noted *UTI(E. coli),complicated: *Sepsis: -Leukocytosis persistent, pct improving *Encephalopathy: *KWABENA on CKD III: improved but worsened again *Thrombocytopenia, acute: 116>80>44>38, dilutional component *COPD(not on home O2): *chronic back/joint pain & neuropathy: on robaxin and silvina at home *Substance abuse: With methamphetamine (she states she "snorts" it) *HTN/HLD: *DM2 w/neuropathy: *Hypothyroidism: Continue home Synthroid *GERD: *Morbid obesity: BMI 46 P: -Tele ID following -imaging pending -Currently on Rocephin/azithromycin/vancomycin -Serial BC -Echo pending -renal us, urine studies -Monitor urine output/renal function -ivf -ACEI/Aldactone held for KWABENA -Continue home inhalers -SSI -IS/Acapella -Substance abuse counseling -PT/OT -ppx: SCD (Lovenox held for plt<50k) /home PPI Time Spent With Patient Time: Total time spent is greater than 50% in coordination of care (as documented) at patient's floor/unit and/or counseling patient: Subsequent: Total time with patient: 50 - 65 Minutes QUALITY VTE Deep Vein Thrombosis/Pulmonary Embolism Present on Admission: No
[2022-09-01] MEDS ORDERED: MAGNESIUM SULFATE 2 GM/50 ML BAG IV SCH (07:34)
[2022-09-01] MEDS ORDERED: 0.9 % SODIUM CHLORIDE 1,000 ML IV ONE ×2 (07:35→10:02)
[2022-09-01] MEDS: INSULIN LISPRO 1 UNIT/0.01 ML UNIT SQ SCH ×4 (07:45→20:55)
--- NOTE | 2022-09-01 07:53 | Internal Med Progress Note ---
SUBJECTIVE Subjective Patient information: Note initiated : 09/01/22 at 7:52 am Service Date, if different from initiated Date: [] Patient: Elicia Ricks 66 y/o F admitted on 08/29/22 for n/v, diarrhea; sepsis, toxic metabolic . Chief Complaint: [] Principal diagnosis: MRSA Sepsis, toxic metabolic encephalopathy Interval history: follow up repeat BCx 08/31, pending Echo, uptrending leukocytosis Additional PMFSH (Level 3 Only): This is a 66y/o female PMHx morbid obesity, chronic opoid use disorder on Suboxone, DM2, COPD on home O2, hypothyroidism, recurrent UTIs, and HTN admitted on 08/29 after presenting with altered mental status, with associated nausea and vomiting for the past few days.As per ER records, she complained of back pain. As reported by EMS, witnessed an episode of vomit and diarrhea. Upon initial evaluation, pt was found febrile (tmax 101.9F), tachypneic (26/min), tachycardic (115bpm), hypotensive (83/62mmHg). On labs with marked leukocytosis (18.5k), UA+hazy, 8 wbc, nit neg, leuk neg, SCr 1.7 CXR c/w left lower lobe pneumonia. CT A/P without contrast c/w mild pneumonia involving lingula and LLL and moderate perinephric fat surrounding both kidneys, collection of small bubbles in the subcutaneous fat of the pelvis. UCx growing E. coli, BCx growing MRSA. Pt is currently on IV Vancomycin + Ceftriaxone + Azithromycin. Interim events, repeat BCx 08/31 also growing MRSA, pending Echo, abd/ct pelvis repeated did not show any abscess or collection Constitutional Vitals: Vital Signs Temp Pulse Resp BP Pulse Ox O2 Del Method O2 Flow Rate 97.5 F 42 L 20 113/59 92 Nasal Cannula 1 09/01/22 07:46 09/01/22 06:01 09/01/22 07:46 09/01/22 06:01 09/01/22 07:46 09/01/22 07:46 09/01/22 07:46 Period Temp Pulse Resp BP Sys/Garza Pulse Ox O2 Del Method O2 Flow Rate Last 24 Hr 97.3 F-100.5 F 42-104 16-24 99-115/54-69 91-96 Nasal Cannula- Nasal Cannula 1-2 Intake and Output 08/31/22 09/01/22 09/01/22 19:59 03:59 11:59 Intake Total 1292 715 265 Output Total 160 280 140 Balance 1132 435 125 Weight 282 lb 14.4 oz Intake & Output: Intake & Output 08/31/22 09/01/22 09/01/22 19:59 03:59 11:59 Intake Total 1292 715 265 Output Total 160 280 140 Balance 1132 435 125 Weight 282 lb 14.4 oz Intake: IV 1292 565 65 Zithromax 250 mg In Dextrose 5% 250 in Water 250 ml @ 250 mls/hr IV Q24H [facility] Rx#:[id number] Lactated Ringers 1,000 ml @ 100 977 mls/hr IV .Q10H [facility] Rx#: [id number] Vancomycin 1,500 mg In Sodium 500 Chloride 0.9% 500 ml @ 333.3 mls/hr IV Q12H [facility] Rx#: [id number] Oral 150 200 Output: Urine Catheter Amount 160 280 140 Other: Meal Glucerna Percent of Meal Consumed 75% Feeding Ability Total Assistance Urine Appearance Cloudy Cloudy Uretheral (Casanova) Cloudy Urine Color Dark Yellow Light Alisha Light Alisha Uretheral (Casanova) Light Alisha Urine Odor Normal Normal Normal General appearance: moderate distress and morbidly obese Head Head exam: Present atraumatic GI/Abdominal Additional comments: globose due to adipose tissue Neurological Exam Additional comments: drowsy, opens eyes to verbal stimuli, has taken her medicines this morning for pain, bedbound OBJ DATA Labs 09/01/22 05:17 09/01/22 05:17 Labs: Abnormal Lab Results 09/01/22 09/01/22 08/31/22 05:17 05:17 07:02 WBC 18.1 H 17.0 H MCHC 30.9 L RDW 15.3 H 14.9 H Plt Count 38 L* 44 L* Immature Gran % (Auto) 5.7 H 3.4 H Neut % (Auto) Lymph % (Auto) 6.8 L 4.4 L [place] % (Auto) 19.0 H 16.2 H Lymph # (Auto) 1.24 L 0.75 L [place] # (Auto) 3.45 H 2.75 H Seg Neutrophils % Lymphocytes % Immature Gran # 1.04 H 0.58 H Absolute Neutrophils 12.26 H 12.78 H Platelet Estimate POC VBG pH POC VBG pCO2 at Temp POC VBG HCO3 POC VBG Total CO2 POC VBG Base Excess Carbon Dioxide 21 L POC BUN BUN 43 H Creatinine 1.9 H POC Creatinine Glucose 127 H POC Glucose Calcium POC WB Ioniz Calcium Magnesium 1.4 L Procalcitonin Urine Appearance Urine Protein Urine Glucose (UA) Urine Occult Blood Urine WBC Urine Bacteria Hyaline Casts Granular Casts Urine Mucus Ur Amphetamines Screen 08/31/22 08/30/22 08/30/22 05:17 05:10 05:10 WBC 15.5 H MCHC 30.7 L RDW Plt Count 80 L Immature Gran % (Auto) Neut % (Auto) Lymph % (Auto) [place] % (Auto) Lymph # (Auto) [place] # (Auto) Seg Neutrophils % 81 H Lymphocytes % 8 L Immature Gran # Absolute Neutrophils Platelet Estimate Decreased A POC VBG pH POC VBG pCO2 at Temp POC VBG HCO3 POC VBG Total CO2 POC VBG Base Excess Carbon Dioxide 20 L POC BUN BUN 32 H 26 H Creatinine 1.3 H 1.5 H POC Creatinine Glucose 106 H POC Glucose Calcium 8.2 L 8.2 L POC WB Ioniz Calcium Magnesium Procalcitonin Urine Appearance Urine Protein Urine Glucose (UA) Urine Occult Blood Urine WBC Urine Bacteria Hyaline Casts Granular Casts Urine Mucus Ur Amphetamines Screen 08/29/22 08/29/22 08/29/22 11:52 11:52 10:52 WBC MCHC RDW Plt Count Immature Gran % (Auto) Neut % (Auto) Lymph % (Auto) [place] % (Auto) Lymph # (Auto) [place] # (Auto) Seg Neutrophils % Lymphocytes % Immature Gran # Absolute Neutrophils Platelet Estimate POC VBG pH 7.45 H POC VBG pCO2 at Temp 31.0 L POC VBG HCO3 21.5 L POC VBG Total CO2 22.0 L POC VBG Base Excess -3.0 L Carbon Dioxide POC BUN BUN Creatinine POC Creatinine Glucose POC Glucose Calcium POC WB Ioniz Calcium Magnesium Procalcitonin Urine Appearance Hazy A Urine Protein 100 A Urine Glucose (UA) >=500 A Urine Occult Blood >=1.0 A Urine WBC 8 H Urine Bacteria Few A Hyaline Casts 7 H Granular Casts 6 H Urine Mucus Few A Ur Amphetamines Screen Suspect positive A 03/08/29/22 08/29/22 10:51 10:45 10:45 WBC 18.7 H MCHC RDW Plt Count 116 L Immature Gran % (Auto) 0.9 H Neut % (Auto) 82.6 H Lymph % (Auto) 6.7 L [place] % (Auto) Lymph # (Auto) 1.26 L [place] # (Auto) 1.66 H Seg Neutrophils % Lymphocytes % Immature Gran # 0.17 H Absolute Neutrophils 15.46 H Platelet Estimate POC VBG pH POC VBG pCO2 at Temp POC VBG HCO3 POC VBG Total CO2 POC VBG Base Excess Carbon Dioxide POC BUN 29 H BUN Creatinine POC Creatinine 1.7 H Glucose POC Glucose 148 H Calcium POC WB Ioniz Calcium 1.11 L Magnesium Procalcitonin 11.92 H Urine Appearance Urine Protein Urine Glucose (UA) Urine Occult Blood Urine WBC Urine Bacteria Hyaline Casts Granular Casts Urine Mucus Ur Amphetamines Screen Meds: Medications Acetaminophen (Acetaminophen 325 Mg Tablet) 650 mg PO Q4-6HP PRN; Protocol PRN Reason: Per Pain Protocol/Fever > 101 Last Admin: 08/30/22 20:15 Dose: 650 mg Albuterol/Ipratropium (Ipratropium/Albuterol 3 Ml Ampul.Neb) 3 ml NEB Q6HP PRN PRN Reason: Shortness Of Breath Last Admin: 08/30/22 12:17 Dose: 3 ml Dextrose (Dextrose 50% 50 Ml Vial) 0 ml IV UD PRN PRN Reason: Per Sliding Scale Diagnostic Test (Pha) (Accu-Chek 1 Each Strip) 1 each FS ACHS [facility] Last Admin: 09/01/22 07:46 Dose: 1 each Glucose (Dextrose 31 Gm Oral.Susp) 15 gm PO PRN PRN PRN Reason: Hypoglycemia Ceftriaxone Sodium 2 gm/ (Dextrose) 50 mls @ 100 mls/hr IV Q24H [facility] Last Infusion: 08/31/22 09:02 Dose: Infused Vancomycin HCl 1,500 mg/ (Sodium Chloride) 500 mls @ 333.3 mls/hr IV Q12H [facility] Last Infusion: 08/31/22 22:08 Dose: Infused Acetaminophen (Ofirmev) 650 mg in 65 mls @ 130 mls/hr IV Q6HP PRN; Protocol PRN Reason: PAIN/FEVER > 101 Last Infusion: 09/01/22 07:30 Dose: Infused Azithromycin 250 mg/ Dextrose 250 mls @ 250 mls/hr IV Q24H [facility]; Protocol Stop: 09/02/22 12:59 Last Infusion: 08/31/22 13:06 Dose: Infused Magnesium Sulfate (Magnesium Sulfate) 2 gm in 50 mls @ 25 mls/hr IV ONCE [facility] Stop: 09/01/22 10:00 Last Admin: 09/01/22 07:45 Dose: 25 mls/hr Sodium Chloride (Sodium Chloride 0.9%) 1,000 mls @ 125 mls/hr IV .Q8H ONE Stop: 09/01/22 15:34 Last Admin: 09/01/22 07:45 Dose: 125 mls/hr Insulin Human Lispro (Insulin Lispro 1 Unit/0.01 Ml Unit) 0 unit SQ ACHS [facility]; Protocol Last Admin: 09/01/22 07:45 Dose: Not Given Labetalol HCl (Labetalol 5 Mg/Ml Ml) 0 mg IV Q2HP PRN PRN Reason: Hypertension Levothyroxine Sodium (Levothyroxine 50 Mcg Tablet) 50 mcg PO DAILY [facility] Last Admin: 08/31/22 10:32 Dose: Not Given Ondansetron HCl (Ondansetron 4 Mg/2 Ml Vial) 4 mg IV Q4-6HP PRN; Protocol PRN Reason: Nausea And Vomiting Buprenorphine- Naloxone 2-0.5 Mg Tablet, Sublingual 0.5 dose SL TID [facility] Last Admin: 09/01/22 02:45 Dose: Not Given Sodium Chloride (0.9 % Sodium Chloride 10 Ml Syringe) 10 ml IV Q8 [facility] Last Admin: 09/01/22 04:54 Dose: 10 ml Vancomycin HCl (Vancomycin Per Pharmacy) 1 order IV UD [facility]; Protocol A/P Assessment and plan (1) MRSA (methicillin resistant Staphylococcus aureus) septicemia: Assessment and plan: This is a 66y/o female PMHx morbid obesity, chronic opoid use disorder on Suboxone, DM2, COPD on home O2, hypothyroidism, recurrent UTIs, and HTN admitted on 08/29 after presenting with altered mental status, nausea, vomit, diarrhea, and back pain.On admission, pt febrile, tachypneic, tachycardic, hypotensive. On labs with marked leukocytosis (18.5k), UA+, KWABENA, CXR+ LLL, CT A/P without contrast c/w mild pneumonia involving lingula and LLL and moderate perinephric fat surrounding both kidneys, collection of small bubbles in the subcutaneous fat of the pelvis. UCx growing E. coli, BCx growing MRSA. Pt has been on IV Vancomycin + Ceftriaxone + Azithromycin, repeat BCx on 08/31 still growing GPC likely MRSA which suggest high grade bacteremia and not controlled source. Endocarditis needs to be ruled out. Plan: - continue Vancomycin 1500mg IV q12hrs, monitor vanco trough levels to keep range between 15-20 - continue with Ceftriaxone 2g IV daily for now - continue with Azithromycin 500mg x 1 dose, then 250mg IV daily x 4 doses -follow up Echocardiogram results (pending), if results are inconclusive or poor acoustic window, will require ASILAJA when stable to rule out endocarditis - follow up repeat blood culture results on 09/02 Status: Acute (2) E. coli pyelonephritis: Status: Acute (3) Pneumonia involving left lung: Status: Acute Time Spent With Patient Time: Total time spent is greater than 50% in coordination of care (as documented) at patient's floor/unit and/or counseling patient: Subsequent: Total time with patient: Less than 25 minutes Total Critical Care Time: 20 (mins) Attestation: Sarah Caldera MD QUALITY VTE Deep Vein Thrombosis/Pulmonary Embolism Present on Admission: No
[2022-09-01] MEDS: cefTRIAXone 2 GM in DEXTROSE 5% IN WATER 50 ML IV SCH (08:29)
[2022-09-01] MEDS ORDERED: METHOCARBAMOL 500 MG TABLET PO SCH (09:00)
[2022-09-01 09:12] LABS: Anisocytosis 1+ (None Seen); Band Neutrophils % 9 % (0-10); Lymphocytes % 8 % (15-49); Monocytes % (Manual) 12 % (1-12); Platelet Estimate MARKEDLY DECREASED (Normal); RBC Morphology ABNORMAL (Normal); Reactive Lymphocytes 1 % (0-2); Segmented Neutrophils % 70 % (38-78)
[2022-09-01] MEDS: VANCOMYCIN 1,250 MG in 0.9 % SODIUM CHLORIDE 500 ML IV SCH ×2 (09:19→20:57)
[2022-09-01] MEDS: AZITHROMYCIN 250 MG in DEXTROSE 5% IN WATER 250 ML IV SCH (09:19)
[2022-09-01 09:21] LABS: Urea Nitrogen, Urine 1320 mg/dL
[2022-09-01] MEDS ORDERED: METHOCARBAMOL 500 MG TABLET PO PRN (09:21)
--- NOTE | 2022-09-01 09:27 | Ultrasound Report ---
History: Worsening acute kidney injury FINDINGS: The right kidney measures 4.5 x 5.2 x 11.6 cm. The cortex is normal in thickness and echogenicity. There is no hydronephrosis stone, mass or cyst. Doppler shows blood flow to the renal parenchyma. The left kidney cannot be visualized due to the patient's large body habitus and bowel gas. No free fluid or abscess are identified. The urinary bladder is decompressed with a Casanova catheter. IMPRESSION: Anatomically normal right kidney. Nonvisualized left kidney Interpreted and Authenticated by: Enrique Cool 09/01/22
[2022-09-01] MEDS: VANCOMYCIN 1,500 MG in 0.9 % SODIUM CHLORIDE 500 ML IV SCH (10:05)
[2022-09-01] MEDS: GABAPENTIN 300 MG CAPSULE PO SCH ×2 (10:13→21:03)
[2022-09-01] MEDS: LEVOTHYROXINE 50 MCG TABLET PO SCH (10:13)
[2022-09-01] MEDS: METHOCARBAMOL 500 MG TABLET PO PRN ×2 (10:23→14:40)
--- NOTE | 2022-09-01 10:35 | Cat Scan Report ---
History: Methicillin resistant Staphylococcus aureus sepsis, diarrhea, encephalopathy TECHNIQUE: Patient was imaged without contrast in axial plane at 2.5 mm intervals from above the diaphragm through the symphysis pubis. Sagittal and coronal reformats were created. The radiation exposure was limited using dose reduction technology. FINDINGS: There are small patchy infiltrates in both lung bases along with small right-sided pleural effusion. There has been mild progression of the infiltrate in the posterior basal segment of the left lower lobe since the recent CT done on 08/30/22. There is no empyema. Evaluation of the abdominal organs without contrast is somewhat limited. The liver and spleen are normal in size and homogeneous. There are several gallstones layering posteriorly in the neck of the gallbladder. The gallbladder wall is not thickened or inflamed and the bile ducts are nondilated. No abnormalities detected in the pancreas. The adrenals are normal. Kidneys are normal in size shape and contour and there is no kidney stone or hydronephrosis. There is perinephric stranding surrounding both kidneys, left greater than right. This has not changed since 08/30/22. Urinary bladder is decompressed by Casanova catheter. Large and small bowel are normal without evidence of inflammation or obstruction. A few noninflamed diverticula are present in the descending colon. No abscess mass ascites or free air present within the abdomen or pelvis. The small bubbles of air in the subcutaneous fat previously seen anteriorly in the right of the pelvis have reabsorbed and there is no subcutaneous abscess. Bone windows show no evidence of osteomyelitis. There is mild chronic sacroiliitis along the top of both SI joints. There is also chronic arthritis in the lumbar spine and a scoliotic curvature. IMPRESSION: Small infiltrates superimposed upon atelectasis in both lung bases. No evidence of abdominal abscess Stable nonspecific perinephric stranding around both kidneys. This may be from an inflammatory process, scar from prior inflammation or scar from prior obstruction. Interpreted and Authenticated by: Enrique Cool 09/01/22
[2022-09-01 12:02] LABS: ALT/SGPT 22 U/L (<40); AST/SGOT 45 U/L (<32); Albumin 2.1 gm/dL (3.2-5.2); Albumin/Globulin Ratio 0.7 (1.0-2.3); Alkaline Phosphatase 126 U/L (39-117); Bilirubin,Direct 0.8 mg/dL (<0.3); Blood Urea Nitrogen 42 mg/dL (8-23); Calcium 8.2 mg/dL (8.6-10.4); Carbon Dioxide 19 mmol/L (22-30); Chloride 106 mmol/L (96-108); Globulin 3.1 gm/dL (2.2-3.7); Glomerular Filtration Rate 47; Glucose 108 mg/dL (70-105); Lactate Dehydrogenase 362 U/L (135-225); Phosphorous 2.7 mg/dL (2.5-4.5); Triglycerides 223 mg/dL (<150); Uric Acid 5.9 mg/dL (2.5-8.0)
[2022-09-01] MEDS: ACETAMINOPHEN 325 MG TABLET PO PRN (18:46)
[2022-09-02] MEDS: 0.9 % SODIUM CHLORIDE 10 ML SYRINGE IV SCH ×5 (05:10→20:58)
[2022-09-02 06:39] LABS: Hematocrit 36.2 % (34.1-44.9); Hemoglobin 11.2 g/dL (11.2-15.7); Mean Cell Volume 92.6 fL (80.0-100.0); Mean Corpuscular HGB Conc 30.9 g/dL (31.0-36.0); Mean Platelet Volume 11.7 fL (8.8-12.5); Platelet Count 54 K/mcL (140-440); RBC 3.91 M/mcL (3.59-5.38); Red Cell Distribution Width 15.6 % (11.5-14.5); WBC 15.4 K/mcL (4.5-11.0)
[2022-09-02 06:57] LABS: ALT/SGPT 31 U/L (<40); AST/SGOT 63 U/L (<32); Albumin 2.1 gm/dL (3.2-5.2); Albumin/Globulin Ratio 0.7 (1.0-2.3); Alkaline Phosphatase 171 U/L (39-117); Bilirubin,Direct 0.7 mg/dL (<0.3); Bilirubin,Total 0.8 mg/dL (0.1-1.0); Blood Urea Nitrogen 39 mg/dL (8-23); Calcium 8.4 mg/dL (8.6-10.4); Carbon Dioxide 22 mmol/L (22-30); Chloride 109 mmol/L (96-108); Globulin 2.9 gm/dL (2.2-3.7); Glomerular Filtration Rate 59; Glucose 112 mg/dL (70-105); Lactate Dehydrogenase 368 U/L (135-225); Triglycerides 195 mg/dL (<150)
[2022-09-02 08:07] LABS: Anisocytosis 1+ (None Seen); Band Neutrophils % 19 % (0-10); Eosinophils % (Manual) 2 % (0-7); Lymphocytes % 6 % (15-49); Metamyelocytes % 2 %; Monocytes % (Manual) 14 % (1-12); Myelocytes % 2 %; Platelet Estimate DECREASED (Normal); RBC Morphology ABNORMAL (Normal); Segmented Neutrophils % 55 % (38-78); Toxic Granulation 1+ (None Seen)
--- NOTE | 2022-09-02 08:24 | Internal Med Progress Note ---
SUBJECTIVE Subjective Patient information: Note initiated : 09/02/22 at 8:20 am Service Date, if different from initiated Date: [] Patient: Elicia Ricks a 66 y/o F admitted on 08/29/22 for n/v, diarrhea; sepsis, toxic metabolic . Chief Complaint: [] Principal diagnosis: MRSA Sepsis, toxic metabolic encephalopathy Interval history: History of present illness: Ms. Ricks is a 66 year old F with a complex PMHx significant for polypharmacy, chronic opoid use disorder on Subonxone, DM2, COPDon home O2, hypothyroidism, and HTN who presents to the hospital w/ AMS. The patient was encephalopathic and hx was obtained second hard from chart review and from nursing. She was brought in via EMS. On arrival, she was HD stable but febrile. She was found to have grossly positive UA and infiltrate on CXR. The patient was also noted to have KWABENA. The hospitalist service was asked to admit her for further mx and evaluation of her toxic metabolic encephalopathy and sepsis. 08/31 The patient's pupils are pinpoint today. She remains altered. I spoke with the RN who states that she was quite agitated and then she had 2 visitors come in after that she became somnolent and calm. There is concerns that she ingested an illicit substance after the visit. 09/01 Patient is quite drowsy but does awaken easily to voice. No new complaints. Seems to be on room air this morning. Thrombocytopenia mildly worsened. The persistent leukocytosis slightly worse. Creatinine worsened. Repeat renal ultrasound pending urine studies pending IV fluids today. Hypomagnesemia and replace. Procalcitonin improving. Chemistry report incorrect. Just received updated lab report showing creatinine stable. And magnesium was not low. BC from GPC, but pt had not been on Vanco up until that point. 09/02 Patient seems quite drowsy still but easily awakens and answers questions. No new complaints. She says she slept okay. Leukocytosis mildly improved But bandemia worse. Echo did not show any vegetations on TTE. Thrombocytopenia mildly better. Renal function better. Review of Systems: denies headache/fever/chills/nausea/vomiting/chest or abdominal pain/diarrhea. Otherwise see above. PHYSICAL EXAM General: Sleeping but awakens, No acute Distress, obese Eyes/N/T: EOMI, no scleral icterus, Head/Neck: neck supple, full ROM, CV: Regular with occasional irregularity, No murmurs, Pulm: Clear b/l, no wheezing/rhonchi/rales, no respiratory distress Abd: soft, nontender, +BS x4 Ext: no clubbing/cyanosis, mile b/l LE edema, nontender Neuro: Drowsy, no focal deficits, moves all extremities, sensations intact b/l upper/lower, answers questions appropriately Psychiatric: Skin: warm/dry, normal color Constitutional Vitals: Vital Signs Temp Pulse Resp BP Pulse Ox O2 Del Method O2 Flow Rate 98.9 F 77 20 115/83 93 Nasal Cannula 1 09/02/22 02:01 09/02/22 06:01 09/02/22 06:01 09/02/22 06:01 09/02/22 06:01 09/02/22 06:01 09/02/22 06:01 Period Temp Pulse Resp BP Sys/Garza Pulse Ox O2 Del Method O2 Flow Rate Last 24 Hr 97.3 F-101.1 F 74-90 - 98-129/51-91 92-98 Nasal Cannula- Room Air 0.5-1 Intake and Output 09/01/22 09/02/22 09/02/22 19:59 03:59 11:59 Intake Total 1947 1200 120 Output Total 620 460 110 Balance 1328 740 10 Weight 131.905 kg Intake & Output: Intake & Output 09/01/22 09/02/22 09/02/22 19:59 03:59 11:59 Intake Total 1947 1200 120 Output Total 620 460 110 Balance 1328 740 10 Weight 131.905 kg Intake: Nourishment/Supplement quantity 120 120 (ml) IV 1428 500 Sodium Chloride 0.9% 1,000 ml @ 928 125 mls/hr IV .Q16H [facility] Rx#: [id number] Vancomycin 1,250 mg In Sodium 500 500 Chloride 0.9% 500 ml @ 333.3 mls/hr IV Q12H [facility] Rx#: [id number] Oral 400 480 120 IV - Manual Only 100 Output: Urine Catheter Amount 620 460 110 Other: Meal Nourishment/Supplement Nourishment/Supplement Percent of Meal Consumed 25% Feeding Ability Total Assistance Nourishment/Supplement name Glucerna Glucerna Urine Appearance Clear Clear Clear Uretheral (Casanova) Clear Urine Color Bright Yellow Yellow Bright Yellow Uretheral (Casanova) Yellow Urine Odor Normal OBJ DATA Labs 09/02/22 05:19 09/02/22 05:19 Labs: Abnormal Lab Results 09/02/22 09/02/22 09/01/22 05:19 05:19 07:56 WBC 15.4 H MCHC 30.9 L RDW 15.6 H Plt Count 54 L Immature Gran % (Auto) Lymph % (Auto) [place] % (Auto) Lymph # (Auto) [place] # (Auto) Band Neutrophils % 19 H Lymphocytes % 6 L Monocytes % (Manual) 14 H Immature Gran # Absolute Neutrophils WBC Morphology Abnormal A Toxic Granulation 1+ A Platelet Estimate Decreased A RBC Morphology Abnormal A Anisocytosis 1+ A Chloride 109 H Carbon Dioxide 19 L BUN 39 H 42 H Creatinine 1.2 H Glucose 112 H 108 H Calcium 8.4 L 8.2 L Direct Bilirubin 0.7 H 0.8 H GGT 267 H 136 H AST 63 H 45 H Alkaline Phosphatase 171 H 126 H Lactate Dehydrogenase 368 H 362 H Total Protein 5.0 L 5.2 L Albumin 2.1 L 2.1 L Albumin/Globulin Ratio 0.7 L 0.7 L Triglycerides 195 H 223 H 09/01/22 09/01/22 08/31/22 05:17 05:00 07:02 WBC 18.1 H 17.0 H MCHC 30.9 L RDW 15.3 H 14.9 H Plt Count 38 L* 44 L* Immature Gran % (Auto) 5.7 H 3.4 H Lymph % (Auto) 6.8 L 4.4 L [place] % (Auto) 19.0 H 16.2 H Lymph # (Auto) 1.24 L 0.75 L [place] # (Auto) 3.45 H 2.75 H Band Neutrophils % Lymphocytes % 8 L Monocytes % (Manual) Immature Gran # 1.04 H 0.58 H Absolute Neutrophils 12.26 H 12.78 H WBC Morphology Toxic Granulation Platelet Estimate Markedly decreased A RBC Morphology Abnormal A Anisocytosis 1+ A Chloride Carbon Dioxide BUN Creatinine Glucose Calcium Direct Bilirubin GGT AST Alkaline Phosphatase Lactate Dehydrogenase Total Protein Albumin Albumin/Globulin Ratio Triglycerides 08/31/22 05:17 WBC MCHC RDW Plt Count Immature Gran % (Auto) Lymph % (Auto) [place] % (Auto) Lymph # (Auto) [place] # (Auto) Band Neutrophils % Lymphocytes % Monocytes % (Manual) Immature Gran # Absolute Neutrophils WBC Morphology Toxic Granulation Platelet Estimate RBC Morphology Anisocytosis Chloride Carbon Dioxide BUN 32 H Creatinine 1.3 H Glucose Calcium 8.2 L Direct Bilirubin GGT AST Alkaline Phosphatase Lactate Dehydrogenase Total Protein Albumin Albumin/Globulin Ratio Triglycerides Meds: Medications Acetaminophen (Acetaminophen 325 Mg Tablet) 650 mg PO Q4-6HP PRN; Protocol PRN Reason: Per Pain Protocol/Fever > 101 Last Admin: 09/01/22 18:46 Dose: 650 mg Albuterol/Ipratropium (Ipratropium/Albuterol 3 Ml Ampul.Neb) 3 ml NEB Q6HP PRN PRN Reason: Shortness Of Breath Last Admin: 08/30/22 12:17 Dose: 3 ml Dextrose (Dextrose 50% 50 Ml Vial) 0 ml IV UD PRN PRN Reason: Per Sliding Scale Diagnostic Test (Pha) (Accu-Chek 1 Each Strip) 1 each FS ACHS [facility] Last Admin: 09/01/22 20:30 Dose: 1 each Gabapentin (Gabapentin 300 Mg Capsule) 600 mg PO BID [facility] Last Admin: 09/01/22 21:03 Dose: 600 mg Glucose (Dextrose 31 Gm Oral.Susp) 15 gm PO PRN PRN PRN Reason: Hypoglycemia Ceftriaxone Sodium 2 gm/ (Dextrose) 50 mls @ 100 mls/hr IV Q24H [facility] Last Infusion: 09/01/22 10:38 Dose: Infused Acetaminophen (Ofirmev) 650 mg in 65 mls @ 130 mls/hr IV Q6HP PRN; Protocol PRN Reason: PAIN/FEVER > 101 Last Infusion: 09/01/22 07:30 Dose: Infused Azithromycin 250 mg/ Dextrose 250 mls @ 250 mls/hr IV Q24H [facility]; Protocol Stop: 09/02/22 12:59 Last Infusion: 09/01/22 10:38 Dose: Infused Vancomycin HCl 1,250 mg/ (Sodium Chloride) 500 mls @ 333.3 mls/hr IV Q12H [facility] Last Infusion: 09/01/22 23:50 Dose: Infused Insulin Human Lispro (Insulin Lispro 1 Unit/0.01 Ml Unit) 0 unit SQ ACHS [facility]; Protocol Last Admin: 09/01/22 20:55 Dose: Not Given Labetalol HCl (Labetalol 5 Mg/Ml Ml) 0 mg IV Q2HP PRN PRN Reason: Hypertension Levothyroxine Sodium (Levothyroxine 50 Mcg Tablet) 50 mcg PO DAILY [facility] Last Admin: 09/01/22 10:13 Dose: 50 mcg Methocarbamol (Methocarbamol 500 Mg Tablet) 500 mg PO QIDP PRN PRN Reason: Chronic Back Pain Last Admin: 09/01/22 14:40 Dose: 500 mg Ondansetron HCl (Ondansetron 4 Mg/2 Ml Vial) 4 mg IV Q4-6HP PRN; Protocol PRN Reason: Nausea And Vomiting Buprenorphine- Naloxone 2-0.5 Mg Tablet, Sublingual 0.5 dose SL TID [facility] Last Admin: 09/01/22 21:02 Dose: 0.5 dose Sodium Chloride (0.9 % Sodium Chloride 10 Ml Syringe) 10 ml IV Q8 [facility] Last Admin: 09/02/22 05:20 Dose: 10 ml Vancomycin HCl (Vancomycin Per Pharmacy) 1 order IV UD [facility]; Protocol A/P Narrative A/P Narrative: A: *CAP/Atelectasis: *Acute hypoxic respiratory failure: 2/2 above -down to 1L NC *Bacteremia (MRSA): -echo no vegetations noted -08/31 BC with Staph likely MRSA (but Vanco had not been started at that point) *UTI(E. coli),complicated: *Sepsis: -Leukocytosis mildly improved with bandemia, pct improving, Tmax 101.1 o/n *Encephalopathy(drowsiness): slowly improving *KWABENA on CKD III: improved *Metabolic acidosis: Improved *Thrombocytopenia, acute: 116>80>44>38>54, dilutional component *COPD(not on home O2): *chronic back/joint pain & neuropathy: on robaxin and silvina at home *Substance abuse: With methamphetamine (she states she "snorts" it) *HTN/HLD: *DM2 w/neuropathy: *Hypothyroidism: Continue home Synthroid *GERD: *Morbid obesity: BMI 46 P: -Tele ID following -Currently on Rocephin/azithromycin/vancomycin -Serial BC -Hold sedating medications for drowsiness -Wean o2 as able, -IS/acapella, prn nebs -Monitor urine output/renal function -ACEI/Aldactone held for KWABENA -Continue home inhalers -SSI -IS/Acapella -Substance abuse counseling -PT/OT -ppx: SCD, restart lovenox (hold for plt<50k) /home PPI Time Spent With Patient Time: Total time spent is greater than 50% in coordination of care (as documented) at patient's floor/unit and/or counseling patient: Subsequent: Total time with patient: 50 - 65 Minutes QUALITY VTE Deep Vein Thrombosis/Pulmonary Embolism Present on Admission: No
[2022-09-02] MEDS: INSULIN LISPRO 1 UNIT/0.01 ML UNIT SQ SCH ×4 (08:34→20:55)
[2022-09-02] MEDS: LEVOTHYROXINE 50 MCG TABLET PO SCH (09:32)
[2022-09-02] MEDS: GABAPENTIN 300 MG CAPSULE PO SCH ×2 (09:32→20:55)
[2022-09-02] MEDS: VANCOMYCIN 1,250 MG in 0.9 % SODIUM CHLORIDE 500 ML IV SCH ×2 (09:32→20:57)
[2022-09-02] MEDS: cefTRIAXone 2 GM in DEXTROSE 5% IN WATER 50 ML IV SCH (09:32)
[2022-09-02] MEDS: METHOCARBAMOL 500 MG TABLET PO PRN (09:33)
[2022-09-02] MEDS: ACETAMINOPHEN 325 MG TABLET PO PRN ×2 (09:33→17:01)
[2022-09-02] MEDS: AZITHROMYCIN 250 MG in DEXTROSE 5% IN WATER 250 ML IV SCH (09:35)
[2022-09-02] MEDS ORDERED: METHOCARBAMOL 500 MG TABLET PO PRN (09:54)
[2022-09-02] MEDS: OMEPRAZOLE 20 MG CAPSULE PO SCH ×2 (10:47→17:01)
--- NOTE | 2022-09-02 16:05 | Internal Med Progress Note ---
SUBJECTIVE Subjective Patient information: Note initiated : 09/02/22 at 4:04 pm Service Date, if different from initiated Date: [] This is a 66y/o female PMHx morbid obesity, chronic opoid use disorder on Suboxone, DM2, COPD on home O2, hypothyroidism, recurrent UTIs, and HTN admitted on 08/29 after presenting with altered mental status, with associated nausea and vomiting for the past few days.As per ER records, she complained of back pain. As reported by EMS, witnessed an episode of vomit and diarrhea. Upon initial evaluation, pt was found febrile (tmax 101.9F), tachypneic (26/min), tachycardic (115bpm), hypotensive (83/62mmHg). On labs with marked leukocytosis (18.5k), UA+hazy, 8 wbc, nit neg, leuk neg, SCr 1.7 CXR c/w left lower lobe pneumonia. CT A/P without contrast c/w mild pneumonia involving lingula and LLL and moderate perinephric fat surrounding both kidneys, collection of small bubbles in the subcutaneous fat of the pelvis. UCx growing E. coli, BCx growing MRSA. Pt is currently on IV Vancomycin + Ceftriaxone + Azithromycin. Interim events, repeat BCx 08/31 also growing MRSA, pending Echo, abd/ct pelvis repeated did not show any abscess or collection. TTE study techically difficult but no obvious valvular abnormalities were seen. Principal diagnosis: MRSA Sepsis, toxic metabolic encephalopathy Interval history: follow up repeat BCx, TTE results, mental status Constitutional Vitals: Vital Signs Temp Pulse Resp BP Pulse Ox O2 Del Method O2 Flow Rate 99.1 F H 73 17 98/57 94 Nasal Cannula 0.5 09/02/22 12:01 09/02/22 14:01 09/02/22 14:01 09/02/22 14:01 09/02/22 14:01 09/02/22 14:00 09/02/22 14:00 Period Temp Pulse Resp BP Sys/Garza Pulse Ox O2 Del Method O2 Flow Rate Last 24 Hr 98.9 F-101.1 F 73-90 17-30 95-129/51-83 91-95 Nasal Cannula- Room Air, Nasal Cannula 0.5-1 Intake and Output 09/02/22 09/02/22 09/02/22 03:59 11:59 19:59 Intake Total 1200 1417 Output Total 460 510 150 Balance 740 907 -150 Weight 290 lb 12.8 oz Patient Weight 09/03/22 03:59 Weight 290 lb 12.8 oz Intake & Output: Intake & Output 09/02/22 09/02/22 09/02/22 03:59 11:59 19:59 Intake Total 1200 1417 Output Total 460 510 150 Balance 740 907 -150 Weight 290 lb 12.8 oz Intake: Nourishment/Supplement quantity 120 237 (ml) IV 500 800 Zithromax 250 mg In Dextrose 5% 250 in Water 250 ml @ 250 mls/hr IV Q24H [facility] Rx#:[id number] Vancomycin 1,250 mg In Sodium 500 500 Chloride 0.9% 500 ml @ 333.3 mls/hr IV Q12H [facility] Rx#: [id number] Rocephin 2 gm In Dextrose 5% in 50 Water 50 ml @ 100 mls/hr IV Q24H [facility] Rx#:[id number] Oral 480 380 IV - Manual Only 100 Output: Urine Catheter Amount 460 510 150 Other: Meal Nourishment/Supplement Breakfast Percent of Meal Consumed 100% Feeding Ability Total Assistance Nourishment/Supplement name Glucerna Glucerna Urine Appearance Clear Clear Clear Uretheral ([place]) Clear Clear Sediment Urine Color Yellow Dark Yellow Dark Yellow Uretheral ([place]) Yellow Dark Yellow Urine Odor Normal General appearance: moderate distress and morbidly obese Head Head exam: Present atraumatic GI/Abdominal Additional comments: globose due to adipose tissue Additional comments: indwelling radford catheter Neurological Exam Additional comments: minimally opens eyes to verbal stimuli, moves all extremities OBJ DATA Labs 09/02/22 05:19 09/02/22 05:19 Labs: Abnormal Lab Results 09/02/22 09/02/22 09/01/22 05:19 05:19 07:56 WBC 15.4 H MCHC 30.9 L RDW 15.6 H Plt Count 54 L Immature Gran % (Auto) Lymph % (Auto) [place] % (Auto) Lymph # (Auto) [place] # (Auto) Band Neutrophils % 19 H Lymphocytes % 6 L Monocytes % (Manual) 14 H Immature Gran # Absolute Neutrophils WBC Morphology Abnormal A Toxic Granulation 1+ A Platelet Estimate Decreased A RBC Morphology Abnormal A Anisocytosis 1+ A Chloride 109 H Carbon Dioxide 19 L BUN 39 H 42 H Creatinine 1.2 H Glucose 112 H 108 H Calcium 8.4 L 8.2 L Direct Bilirubin 0.7 H 0.8 H GGT 267 H 136 H AST 63 H 45 H Alkaline Phosphatase 171 H 126 H Lactate Dehydrogenase 368 H 362 H Total Protein 5.0 L 5.2 L Albumin 2.1 L 2.1 L Albumin/Globulin Ratio 0.7 L 0.7 L Triglycerides 195 H 223 H 09/01/22 09/01/22 08/31/22 05:17 05:00 07:02 WBC 18.1 H 17.0 H MCHC 30.9 L RDW 15.3 H 14.9 H Plt Count 38 L* 44 L* Immature Gran % (Auto) 5.7 H 3.4 H Lymph % (Auto) 6.8 L 4.4 L [place] % (Auto) 19.0 H 16.2 H Lymph # (Auto) 1.24 L 0.75 L [place] # (Auto) 3.45 H 2.75 H Band Neutrophils % Lymphocytes % 8 L Monocytes % (Manual) Immature Gran # 1.04 H 0.58 H Absolute Neutrophils 12.26 H 12.78 H WBC Morphology Toxic Granulation Platelet Estimate Markedly decreased A RBC Morphology Abnormal A Anisocytosis 1+ A Chloride Carbon Dioxide BUN Creatinine Glucose Calcium Direct Bilirubin GGT AST Alkaline Phosphatase Lactate Dehydrogenase Total Protein Albumin Albumin/Globulin Ratio Triglycerides 08/31/22 05:17 WBC MCHC RDW Plt Count Immature Gran % (Auto) Lymph % (Auto) [place] % (Auto) Lymph # (Auto) [place] # (Auto) Band Neutrophils % Lymphocytes % Monocytes % (Manual) Immature Gran # Absolute Neutrophils WBC Morphology Toxic Granulation Platelet Estimate RBC Morphology Anisocytosis Chloride Carbon Dioxide BUN 32 H Creatinine 1.3 H Glucose Calcium 8.2 L Direct Bilirubin GGT AST Alkaline Phosphatase Lactate Dehydrogenase Total Protein Albumin Albumin/Globulin Ratio Triglycerides Meds: Medications Acetaminophen (Acetaminophen 325 Mg Tablet) 650 mg PO Q4-6HP PRN; Protocol PRN Reason: Per Pain Protocol/Fever > 101 Last Admin: 09/02/22 09:33 Dose: 650 mg Albuterol/Ipratropium (Ipratropium/Albuterol 3 Ml Ampul.Neb) 3 ml NEB Q6HP PRN PRN Reason: Shortness Of Breath Last Admin: 08/30/22 12:17 Dose: 3 ml Dextrose (Dextrose 50% 50 Ml Vial) 0 ml IV UD PRN PRN Reason: Per Sliding Scale Diagnostic Test (Pha) (Accu-Chek 1 Each Strip) 1 each FS ACHS [facility] Last Admin: 09/02/22 12:15 Dose: 1 each Enoxaparin Sodium (Enoxaparin 30 Mg/0.3 Ml Syringe) 30 mg SQ BID [facility] Gabapentin (Gabapentin 300 Mg Capsule) 600 mg PO HS [facility] Glucose (Dextrose 31 Gm Oral.Susp) 15 gm PO PRN PRN PRN Reason: Hypoglycemia Ceftriaxone Sodium 2 gm/ (Dextrose) 50 mls @ 100 mls/hr IV Q24H [facility] Last Infusion: 09/02/22 11:15 Dose: Infused Acetaminophen (Ofirmev) 650 mg in 65 mls @ 130 mls/hr IV Q6HP PRN; Protocol PRN Reason: PAIN/FEVER > 101 Last Infusion: 09/01/22 07:30 Dose: Infused Vancomycin HCl 1,250 mg/ (Sodium Chloride) 500 mls @ 333.3 mls/hr IV Q12H [facility] Last Infusion: 09/02/22 11:05 Dose: Infused Insulin Human Lispro (Insulin Lispro 1 Unit/0.01 Ml Unit) 0 unit SQ [facility]; Protocol Last Admin: 09/02/22 12:15 Dose: Not Given Labetalol HCl (Labetalol 5 Mg/Ml Ml) 0 mg IV Q2HP PRN PRN Reason: Hypertension Levothyroxine Sodium (Levothyroxine 50 Mcg Tablet) 50 mcg PO DAILY [facility] Last Admin: 09/02/22 09:32 Dose: 50 mcg Methocarbamol (Methocarbamol 500 Mg Tablet) 500 mg PO HSP PRN PRN Reason: Chronic Back Pain Omeprazole (Omeprazole 20 Mg Capsule) 20 mg PO BIDAC [facility] Last Admin: 09/02/22 10:47 Dose: 20 mg Ondansetron HCl (Ondansetron 4 Mg/2 Ml Vial) 4 mg IV Q4-6HP PRN; Protocol PRN Reason: Nausea And Vomiting Sodium Chloride (0.9 % Sodium Chloride 10 Ml Syringe) 10 ml IV Q8 [facility] Last Admin: 09/02/22 14:00 Dose: 10 ml Vancomycin HCl (Vancomycin Per Pharmacy) 1 order IV UD [facility]; Protocol Imaging and cardiology CT scan - abdomen: Status: image reviewed by me A/P Assessment and plan (1) MRSA (methicillin resistant Staphylococcus aureus) septicemia: Assessment and plan: This is a 66y/o female PMHx morbid obesity, chronic opoid use disorder on Suboxone, DM2, COPD on home O2, hypothyroidism, recurrent UTIs, and HTN admitted on 08/29 after presenting with altered mental status, nausea, vomit, diarrhea, and back pain.On admission, pt febrile, tachypneic, tachycardic, hypotensive. On labs with marked leukocytosis (18.5k), UA+, KWABENA, CXR+ LLL, CT A/P without contrast c/w mild pneumonia involving lingula and LLL and moderate perinephric fat surrounding both kidneys, collection of small bubbles in the subcutaneous fat of the pelvis. UCx growing E. coli, BCx growing MRSA. Pt is currently on IV Vancomycin + Ceftriaxone (completed 5 days Azithromycin), repeat BCx on 08/31 still growing GPC likely MRSA which suggest high grade bacteremia, and still febrile. No identifiable source of infection. TTE study was technically difficult but no obvious valvular abnormalities were detected. Plan: - continue Vancomycin 1500mg IV q12hrs, monitor vanco trough levels to keep range between 15-20 (Vt 16.7 on 09/01) - complete 7 day course with Ceftriaxone 2g IV daily -obtain SAILAJA when stable to rule out endocarditis - obtain Head CT scan if no improvement in mental status - follow up repeat BCx obtained today Status: Acute (2) Pneumonia involving left lung: Status: Acute (3) E. coli pyelonephritis: Status: Acute Time Spent With Patient Time: Total time spent is greater than 50% in coordination of care (as documented) at patient's floor/unit and/or counseling patient: Subsequent: Total time with patient: 25 - 34 minutes Attestation: Sarah Caldera MD QUALITY VTE Deep Vein Thrombosis/Pulmonary Embolism Present on Admission: No
[2022-09-02] MEDS: ENOXAPARIN 30 MG/0.3 ML SYRINGE SQ SCH (20:55)
[2022-09-03] MEDS: ACETAMINOPHEN 650 MG/65 ML BAG IV PRN ×2 (02:08→10:39)
[2022-09-03] MEDS: 0.9 % SODIUM CHLORIDE 10 ML SYRINGE IV SCH ×3 (05:08→22:27)
[2022-09-03 06:28] LABS: Hematocrit 34.6 % (34.1-44.9); Mean Cell Volume 92.5 fL (80.0-100.0); Mean Corpuscular HGB Conc 31.8 g/dL (31.0-36.0); Mean Platelet Volume 11.5 fL (8.8-12.5); Platelet Count 91 K/mcL (140-440); RBC 3.74 M/mcL (3.59-5.38); Red Cell Distribution Width 15.5 % (11.5-14.5); WBC 17.8 K/mcL (4.5-11.0)
[2022-09-03 06:44] LABS: ALT/SGPT 35 U/L (<40); AST/SGOT 67 U/L (<32); Albumin 1.9 gm/dL (3.2-5.2); Albumin/Globulin Ratio 0.6 (1.0-2.3); Alkaline Phosphatase 182 U/L (39-117); Bilirubin,Direct 0.6 mg/dL (<0.3); Bilirubin,Total 0.8 mg/dL (0.1-1.0); Blood Urea Nitrogen 41 mg/dL (8-23); Calcium 7.9 mg/dL (8.6-10.4); Carbon Dioxide 22 mmol/L (22-30); Chloride 106 mmol/L (96-108); Glomerular Filtration Rate 59; Glucose 138 mg/dL (70-105); Lactate Dehydrogenase 353 U/L (135-225); Phosphorous 3.1 mg/dL (2.5-4.5); Triglycerides 184 mg/dL (<150); Uric Acid 5.7 mg/dL (2.5-8.0)
[2022-09-03] MEDS: OMEPRAZOLE 20 MG CAPSULE PO SCH ×2 (07:26→17:11)
[2022-09-03] MEDS: INSULIN LISPRO 1 UNIT/0.01 ML UNIT SQ SCH ×4 (07:43→20:22)
--- NOTE | 2022-09-03 08:02 | Internal Med Progress Note ---
SUBJECTIVE Subjective Patient information: Note initiated : 09/03/22 at 7:54 am Service Date, if different from initiated Date: [] Patient: Elicia Ricks a 66 y/o F admitted on 08/29/22 for n/v, diarrhea; sepsis, toxic metabolic . Chief Complaint: [] Principal diagnosis: MRSA Sepsis, toxic metabolic encephalopathy Interval history: History of present illness: Ms. Ricks is a 66 year old F with a complex PMHx significant for polypharmacy, chronic opoid use disorder on Subonxone, DM2, COPDon home O2, hypothyroidism, and HTN who presents to the hospital w/ AMS. The patient was encephalopathic and hx was obtained second hard from chart review and from nursing. She was brought in via EMS. On arrival, she was HD stable but febrile. She was found to have grossly positive UA and infiltrate on CXR. The patient was also noted to have KWABENA. The hospitalist service was asked to admit her for further mx and evaluation of her toxic metabolic encephalopathy and sepsis. 08/31 The patient's pupils are pinpoint today. She remains altered. I spoke with the RN who states that she was quite agitated and then she had 2 visitors come in after that she became somnolent and calm. There is concerns that she ingested an illicit substance after the visit. 09/01 Patient is quite drowsy but does awaken easily to voice. No new complaints. Seems to be on room air this morning. Thrombocytopenia mildly worsened. The persistent leukocytosis slightly worse. Creatinine worsened. Repeat renal ultrasound pending urine studies pending IV fluids today. Hypomagnesemia and replace. Procalcitonin improving. Chemistry report incorrect. Just received updated lab report showing creatinine stable. And magnesium was not low. BC from growing GPC, but pt had not been on Vanco up until that point. 09/02 Patient seems quite drowsy still but easily awakens and answers questions. No new complaints. She says she slept okay. Leukocytosis mildly improved But bandemia worse. Echo did not show any vegetations on TTE. Thrombocytopenia mildly better. Renal function better. 09/03 Patient still drowsy but seems to be a little bit more alert and is answering questions appropriately. Leukocytosis worse but bandemia has resolved. Repeat blood cultures on the are positive for gram-positive cocci. Serial blood cultures. Follow-up labs. Review of Systems: denies headache/fever/chills/nausea/vomiting/chest or abdominal pain/diarrhea. Otherwise see above. PHYSICAL EXAM General: drowsy, No acute Distress, obese Eyes/N/T: EOMI, no scleral icterus, Head/Neck: neck supple, full ROM, CV: Regular with occasional irregularity, No murmurs, Pulm: Clear b/l, no wheezing/rhonchi/rales, no respiratory distress Abd: soft, nontender, +BS x4 Ext: no clubbing/cyanosis, mile b/l LE edema, nontender Neuro: Drowsy but seems a bit more alert, no focal deficits, moves all extremities, sensations intact b/l upper/lower, answers questions appropriately Psychiatric: Skin: warm/dry, normal color Constitutional Vitals: Vital Signs Temp Pulse Resp BP Pulse Ox O2 Del Method O2 Flow Rate 98.1 F 72 22 103/48 92 Nasal Cannula 0.5 09/03/22 07:43 09/03/22 07:43 09/03/22 07:43 09/03/22 07:43 09/03/22 07:43 09/03/22 07:43 09/03/22 07:43 Period Temp Pulse Resp BP Sys/Garza Pulse Ox O2 Del Method O2 Flow Rate Last 24 Hr 98.1 F-100.3 F 65-81 16-30 95-115/46-86 91-97 Nasal Cannula- Room Air, Nasal Cannula 0.5-1 Intake and Output 09/02/22 09/03/22 09/03/22 19:59 03:59 11:59 Intake Total 357 805 Output Total 270 280 115 Balance 87 525 -115 Weight 133.084 kg Intake & Output: Intake & Output 09/02/22 09/03/22 09/03/22 19:59 03:59 11:59 Intake Total 357 805 Output Total 270 280 115 Balance 87 525 -115 Weight 133.084 kg Intake: Nourishment/Supplement quantity 237 240 (ml) IV 565 Vancomycin 1,250 mg In Sodium 500 Chloride 0.9% 500 ml @ 333.3 mls/hr IV Q12H [facility] Rx#: [id number] Oral 120 Output: Urine Catheter Amount 270 280 115 Other: Meal Dinner Nourishment/Supplement Percent of Meal Consumed 100% Feeding Ability Assist with Tray Set Up Nourishment/Supplement name Michelle Martinez Urine Appearance Clear Clear Clear Urine Color Bright Yellow Dark Yellow Dark Yellow Urine Odor Normal OBJ DATA Labs 09/03/22 05:09 09/03/22 04:00 Labs: Abnormal Lab Results 09/03/22 09/03/22 09/02/22 05:09 04:00 05:19 WBC 17.8 H Hgb 11.0 L MCHC RDW 15.5 H Plt Count 91 L Immature Gran % (Auto) Lymph % (Auto) [place] % (Auto) Lymph # (Auto) [place] # (Auto) Band Neutrophils % Lymphocytes % Monocytes % (Manual) Immature Gran # Absolute Neutrophils WBC Morphology Toxic Granulation Platelet Estimate RBC Morphology Anisocytosis Chloride 109 H Carbon Dioxide BUN 41 H 39 H Creatinine Glucose 138 H 112 H Calcium 7.9 L 8.4 L Direct Bilirubin 0.6 H 0.7 H GGT 300 H 267 H AST 67 H 63 H Alkaline Phosphatase 182 H 171 H Lactate Dehydrogenase 353 H 368 H Total Protein 4.9 L 5.0 L Albumin 1.9 L 2.1 L Albumin/Globulin Ratio 0.6 L 0.7 L Triglycerides 184 H 195 H 09/02/22 09/01/22 09/01/22 05:19 07:56 05:17 WBC 15.4 H 18.1 H Hgb MCHC 30.9 L 30.9 L RDW 15.6 H 15.3 H Plt Count 54 L 38 L* Immature Gran % (Auto) 5.7 H Lymph % (Auto) 6.8 L Carter % (Auto) 19.0 H Lymph # (Auto) 1.24 L [place] # (Auto) 3.45 H Band Neutrophils % 19 H Lymphocytes % 6 L Monocytes % (Manual) 14 H Immature Gran # 1.04 H Absolute Neutrophils 12.26 H WBC Morphology Abnormal A Toxic Granulation 1+ A Platelet Estimate Decreased A RBC Morphology Abnormal A Anisocytosis 1+ A Chloride Carbon Dioxide 19 L BUN 42 H Creatinine 1.2 H Glucose 108 H Calcium 8.2 L Direct Bilirubin 0.8 H GGT 136 H AST 45 H Alkaline Phosphatase 126 H Lactate Dehydrogenase 362 H Total Protein 5.2 L Albumin 2.1 L Albumin/Globulin Ratio 0.7 L Triglycerides 223 H 09/01/22 08/31/22 05:00 07:02 WBC 17.0 H Hgb MCHC RDW 14.9 H Plt Count 44 L* Immature Gran % (Auto) 3.4 H Lymph % (Auto) 4.4 L [place] % (Auto) 16.2 H Lymph # (Auto) 0.75 L [place] # (Auto) 2.75 H Band Neutrophils % Lymphocytes % 8 L Monocytes % (Manual) Immature Gran # 0.58 H Absolute Neutrophils 12.78 H WBC Morphology Toxic Granulation Platelet Estimate Markedly decreased A RBC Morphology Abnormal A Anisocytosis 1+ A Chloride Carbon Dioxide BUN Creatinine Glucose Calcium Direct Bilirubin GGT AST Alkaline Phosphatase Lactate Dehydrogenase Total Protein Albumin Albumin/Globulin Ratio Triglycerides Meds: Medications Acetaminophen (Acetaminophen 325 Mg Tablet) 650 mg PO Q4-6HP PRN; Protocol PRN Reason: Per Pain Protocol/Fever > 101 Last Admin: 09/02/22 17:01 Dose: 650 mg Albuterol/Ipratropium (Ipratropium/Albuterol 3 Ml Ampul.Neb) 3 ml NEB Q6HP PRN PRN Reason: Shortness Of Breath Last Admin: 08/30/22 12:17 Dose: 3 ml Dextrose (Dextrose 50% 50 Ml Vial) 0 ml IV UD PRN PRN Reason: Per Sliding Scale Diagnostic Test (Pha) (Accu-Chek 1 Each Strip) 1 each FS ACHS [facility] Last Admin: 09/03/22 07:42 Dose: 1 each Enoxaparin Sodium (Enoxaparin 30 Mg/0.3 Ml Syringe) 30 mg SQ BID [facility] Last Admin: 09/02/22 20:55 Dose: 30 mg Gabapentin (Gabapentin 300 Mg Capsule) 600 mg PO HS [facility] Last Admin: 09/02/22 20:55 Dose: 600 mg Glucose (Dextrose 31 Gm Oral.Susp) 15 gm PO PRN PRN PRN Reason: Hypoglycemia Ceftriaxone Sodium 2 gm/ (Dextrose) 50 mls @ 100 mls/hr IV Q24H [facility] Last Infusion: 09/02/22 11:15 Dose: Infused Acetaminophen (Ofirmev) 650 mg in 65 mls @ 130 mls/hr IV Q6HP PRN; Protocol PRN Reason: PAIN/FEVER > 101 Last Infusion: 09/03/22 03:31 Dose: Infused Vancomycin HCl 1,250 mg/ (Sodium Chloride) 500 mls @ 333.3 mls/hr IV Q12H [facility] Last Infusion: 09/02/22 23:30 Dose: Infused Insulin Human Lispro (Insulin Lispro 1 Unit/0.01 Ml Unit) 0 unit SQ [facility]; Protocol Last Admin: 09/03/22 07:43 Dose: Not Given Labetalol HCl (Labetalol 5 Mg/Ml Ml) 0 mg IV Q2HP PRN PRN Reason: Hypertension Levothyroxine Sodium (Levothyroxine 50 Mcg Tablet) 50 mcg PO DAILY [facility] Last Admin: 09/02/22 09:32 Dose: 50 mcg Methocarbamol (Methocarbamol 500 Mg Tablet) 500 mg PO HSP PRN PRN Reason: Chronic Back Pain Last Admin: 09/02/22 23:54 Dose: 500 mg Omeprazole (Omeprazole 20 Mg Capsule) 20 mg PO BIDAC [facility] Last Admin: 09/03/22 07:26 Dose: 20 mg Ondansetron HCl (Ondansetron 4 Mg/2 Ml Vial) 4 mg IV Q4-6HP PRN; Protocol PRN Reason: Nausea And Vomiting Sodium Chloride (0.9 % Sodium Chloride 10 Ml Syringe) 10 ml IV Q8 [facility] Last Admin: 09/03/22 05:08 Dose: 10 ml Vancomycin HCl (Vancomycin Per Pharmacy) 1 order IV UD [facility]; Protocol A/P Narrative A/P Narrative: A: *CAP/Atelectasis: *Acute hypoxic respiratory failure: 2/2 above -down to 0.5L NC *Bacteremia (MRSA): -TTE no vegetations noted -09/02 BC with GPC(likely MRSA) 2/4 bottles , vanco started on 08/31 *UTI(E. coli),complicated: *Sepsis: -Leukocytosis worsened but bandemia resolved, fever curve improving *Encephalopathy(drowsiness): slowly improving *KWABEAN on CKD III: improved *Metabolic acidosis: Improved *Thrombocytopenia, acute: *COPD(not on home O2): *chronic back/joint pain & neuropathy: on robaxin and silvina at home *Substance abuse: With methamphetamine (she states she "snorts" it) *HTN/HLD: *DM2 w/neuropathy: *Hypothyroidism: Continue home Synthroid *GERD: *Morbid obesity: BMI 46 P: -Tele ID following -Currently on Rocephin/azithromycin(finished)/vancomycin -likely treat as endocarditis, outpt SAILAJA -Serial BC -MRI brain for r/o septic emboli and encephalopathy -Hold sedating medications for drowsiness -Wean o2 as able, -IS/acapella, prn nebs -Monitor urine output/renal function -ACEI/Aldactone held for KWABENA and soft BP -Continue home inhalers -SSI -IS/Acapella -Substance abuse counseling -PT/OT -ppx: SCD, restarted lovenox (hold for plt<50k) /home PPI Time Spent With Patient Time: Total time spent is greater than 50% in coordination of care (as documented) at patient's floor/unit and/or counseling patient: Subsequent: Total time with patient: 50 - 65 Minutes QUALITY VTE Deep Vein Thrombosis/Pulmonary Embolism Present on Admission: No
[2022-09-03 08:03] LABS: Anisocytosis 1+ (None Seen); Band Neutrophils % 5 % (0-10); Eosinophils % (Manual) 2 % (0-7); Lymphocytes % 3 % (15-49); Metamyelocytes % 3 %; Monocytes % (Manual) 10 % (1-12); Myelocytes % 3 %; Platelet Estimate DECREASED (Normal); RBC Morphology ABNORMAL (Normal); Segmented Neutrophils % 74 % (38-78)
[2022-09-03] MEDS: cefTRIAXone 2 GM in DEXTROSE 5% IN WATER 50 ML IV SCH (08:14)
[2022-09-03] MEDS: ENOXAPARIN 30 MG/0.3 ML SYRINGE SQ SCH (08:14)
[2022-09-03] MEDS: LEVOTHYROXINE 50 MCG TABLET PO SCH (08:14)
[2022-09-03] MEDS ORDERED: Budesonide-Formoterol [Symbicort] 160-4.5 mcg Inhaler INH PRN (08:54)
[2022-09-03] MEDS: VANCOMYCIN 1,250 MG in 0.9 % SODIUM CHLORIDE 500 ML IV SCH (09:28)
[2022-09-03] MEDS: ACETAMINOPHEN 325 MG TABLET PO PRN (20:17)
[2022-09-03] MEDS: GABAPENTIN 300 MG CAPSULE PO SCH (20:17)
[2022-09-04] MEDS: ACETAMINOPHEN 650 MG/65 ML BAG IV PRN (01:49)
[2022-09-04] MEDS: 0.9 % SODIUM CHLORIDE 10 ML SYRINGE IV SCH ×3 (05:08→21:38)
[2022-09-04 07:10] LABS: Vancomycin,Random 11.6 ug/mL
--- NOTE | 2022-09-04 07:23 | Internal Med Progress Note ---
SUBJECTIVE Subjective Patient information: Note initiated : 09/04/22 at 7:20 am Service Date, if different from initiated Date: [] Patient: Elicia Ricks a 66 y/o F admitted on 08/29/22 for n/v, diarrhea; sepsis, toxic metabolic . Chief Complaint: [] Principal diagnosis: MRSA Sepsis, toxic metabolic encephalopathy Interval history: History of present illness: Ms. Ricks is a 66 year old F with a complex PMHx significant for polypharmacy, chronic opoid use disorder on Subonxone, DM2, COPDon home O2, hypothyroidism, and HTN who presents to the hospital w/ AMS. The patient was encephalopathic and hx was obtained second hard from chart review and from nursing. She was brought in via EMS. On arrival, she was HD stable but febrile. She was found to have grossly positive UA and infiltrate on CXR. The patient was also noted to have KWABENA. The hospitalist service was asked to admit her for further mx and evaluation of her toxic metabolic encephalopathy and sepsis. 08/31 The patient's pupils are pinpoint today. She remains altered. I spoke with the RN who states that she was quite agitated and then she had 2 visitors come in after that she became somnolent and calm. There is concerns that she ingested an illicit substance after the visit. 09/01 Patient is quite drowsy but does awaken easily to voice. No new complaints. Seems to be on room air this morning. Thrombocytopenia mildly worsened. The persistent leukocytosis slightly worse. Creatinine worsened. Repeat renal ultrasound pending urine studies pending IV fluids today. Hypomagnesemia and replace. Procalcitonin improving. Chemistry report incorrect. Just received updated lab report showing creatinine stable. And magnesium was not low. BC from growing GPC, but pt had not been on Vanco up until that point. 09/02 Patient seems quite drowsy still but easily awakens and answers questions. No new complaints. She says she slept okay. Leukocytosis mildly improved But bandemia worse. Echo did not show any vegetations on TTE. Thrombocytopenia mildly better. Renal function better. 09/03 Patient still drowsy but seems to be a little bit more alert and is answering questions appropriately. Leukocytosis worse but bandemia has resolved. Repeat blood cultures on the are positive for gram-positive cocci. Serial blood cultures. Follow-up labs. 09/04 Feeling better today. More alert and awake. Feeling closer to her baseline although she does complain of increased back and leg pain which is her chronic pain, I have held the Robaxin and gabapentin for her Decreased LOC. Fever curve improving. Persistent leukocytosis but no more bandemia. Repeat blood cultures done this morning. Review of Systems: denies headache/fever/chills/nausea/vomiting/chest or abdominal pain/diarrhea. Otherwise see above. PHYSICAL EXAM General: Awake, no acute Distress, obese Eyes/N/T: EOMI, no scleral icterus, Head/Neck: neck supple, full ROM, CV: Regular with occasional irregularity, No murmurs, Pulm: Clear b/l, no wheezing/rhonchi/rales, no respiratory distress Abd: soft, nontender, +BS x4 Ext: no clubbing/cyanosis, mile b/l LE edema, nontender Neuro: Alert and awake, no focal deficits, moves all extremities, sensations intact b/l upper/lower, answers questions appropriately Psychiatric: Skin: warm/dry, normal color Constitutional Vitals: Vital Signs Temp Pulse Resp BP Pulse Ox O2 Del Method O2 Flow Rate 98.6 F 72 20 107/50 94 Room Air 2 09/04/22 04:01 09/04/22 05:58 09/04/22 05:58 09/04/22 05:58 09/04/22 05:58 09/04/22 05:58 09/03/22 14:00 Period Temp Pulse Resp BP Sys/Garza Pulse Ox O2 Del Method O2 Flow Rate Last 24 Hr 98.0 F-100.1 F 69-91 17-28 99-143/44-69 92-99 Nasal Cannula- Room Air 0.5-2 Intake and Output 09/03/22 09/04/22 09/04/22 19:59 03:59 11:59 Intake Total 1080 545 480 Output Total 800 200 Balance 1080 -255 280 Weight 133.674 kg Intake & Output: Intake & Output 09/03/22 09/04/22 09/04/22 19:59 03:59 11:59 Intake Total 1080 545 480 Output Total 800 200 Balance 1080 -255 280 Weight 133.674 kg Intake: IV 65 Oral 1080 480 480 Output: Urine Catheter Amount 720 200 Void Amount 80 Other: Meal Dinner Percent of Meal Consumed 75% Feeding Ability Total Assistance Nourishment/Supplement name 240 Urine Appearance Clear Clear Uretheral ([place]) Clear Urine Color Dark Yellow Yellow Uretheral ([place]) Dark Alisha Urine Odor Normal Normal OBJ DATA Labs 09/03/22 05:09 09/03/22 04:00 Labs: Abnormal Lab Results 09/03/22 09/03/22 09/03/22 08:04 05:09 04:00 WBC 17.8 H Hgb 11.0 L MCHC RDW 15.5 H Plt Count 91 L Band Neutrophils % Lymphocytes % 3 L Monocytes % (Manual) WBC Morphology Toxic Granulation Platelet Estimate Decreased A RBC Morphology Abnormal A Anisocytosis 1+ A Chloride Carbon Dioxide BUN 41 H Creatinine Glucose 138 H Calcium 7.9 L Direct Bilirubin 0.6 H GGT 300 H AST 67 H Alkaline Phosphatase 182 H Lactate Dehydrogenase 353 H Total Protein 4.9 L Albumin 1.9 L Albumin/Globulin Ratio 0.6 L Triglycerides 184 H Vancomycin Trough 24.8 H* 09/02/22 09/02/22 09/01/22 05:19 05:19 07:56 WBC 15.4 H Hgb MCHC 30.9 L RDW 15.6 H Plt Count 54 L Band Neutrophils % 19 H Lymphocytes % 6 L Monocytes % (Manual) 14 H WBC Morphology Abnormal A Toxic Granulation 1+ A Platelet Estimate Decreased A RBC Morphology Abnormal A Anisocytosis 1+ A Chloride 109 H Carbon Dioxide 19 L BUN 39 H 42 H Creatinine 1.2 H Glucose 112 H 108 H Calcium 8.4 L 8.2 L Direct Bilirubin 0.7 H 0.8 H GGT 267 H 136 H AST 63 H 45 H Alkaline Phosphatase 171 H 126 H Lactate Dehydrogenase 368 H 362 H Total Protein 5.0 L 5.2 L Albumin 2.1 L 2.1 L Albumin/Globulin Ratio 0.7 L 0.7 L Triglycerides 195 H 223 H Vancomycin Trough 09/01/22 05:00 WBC Hgb MCHC RDW Plt Count Band Neutrophils % Lymphocytes % 8 L Monocytes % (Manual) WBC Morphology Toxic Granulation Platelet Estimate Markedly decreased A RBC Morphology Abnormal A Anisocytosis 1+ A Chloride Carbon Dioxide BUN Creatinine Glucose Calcium Direct Bilirubin GGT AST Alkaline Phosphatase Lactate Dehydrogenase Total Protein Albumin Albumin/Globulin Ratio Triglycerides Vancomycin Trough Meds: Medications Acetaminophen (Acetaminophen 325 Mg Tablet) 650 mg PO Q4-6HP PRN; Protocol PRN Reason: Per Pain Protocol/Fever > 101 Last Admin: 09/03/22 20:17 Dose: 650 mg Albuterol/Ipratropium (Ipratropium/Albuterol 3 Ml Ampul.Neb) 3 ml NEB Q6HP PRN PRN Reason: Shortness Of Breath Last Admin: 08/30/22 12:17 Dose: 3 ml Dextrose (Dextrose 50% 50 Ml Vial) 0 ml IV UD PRN PRN Reason: Per Sliding Scale Diagnostic Test (Pha) (Accu-Chek 1 Each Strip) 1 each FS ACHS [facility] Last Admin: 09/03/22 20:18 Dose: 1 each Fluticasone Propionate (Fluticasone Propionate [place]hetan) 2 spray NS DAILY [facility] Gabapentin (Gabapentin 300 Mg Capsule) 600 mg PO HS [facility] Last Admin: 09/03/22 20:17 Dose: 600 mg Glucose (Dextrose 31 Gm Oral.Susp) 15 gm PO PRN PRN PRN Reason: Hypoglycemia Ceftriaxone Sodium 2 gm/ (Dextrose) 50 mls @ 100 mls/hr IV Q24H [facility] Stop: 09/06/22 12:00 Last Infusion: 09/03/22 08:57 Dose: Infused Acetaminophen (Ofirmev) 650 mg in 65 mls @ 130 mls/hr IV Q6HP PRN; Protocol PRN Reason: PAIN/FEVER > 101 Last Infusion: 09/04/22 02:20 Dose: Infused Insulin Human Lispro (Insulin Lispro 1 Unit/0.01 Ml Unit) 0 unit SQ [facility]; Protocol Last Admin: 09/03/22 20:22 Dose: Not Given Labetalol HCl (Labetalol 5 Mg/Ml Ml) 0 mg IV Q2HP PRN PRN Reason: Hypertension Levothyroxine Sodium (Levothyroxine 50 Mcg Tablet) 50 mcg PO DAILY [facility] Last Admin: 09/03/22 08:14 Dose: 50 mcg Omeprazole (Omeprazole 20 Mg Capsule) 20 mg PO BIDAC [facility] Last Admin: 09/03/22 17:11 Dose: 20 mg Ondansetron HCl (Ondansetron 4 Mg/2 Ml Vial) 4 mg IV Q4-6HP PRN; Protocol PRN Reason: Nausea And Vomiting Budesonide- Formoterol [ Symbicort] 160-4.5 Mcg Inhaler 2 dose INH BIDP PRN PRN Reason: asthma Sodium Chloride (0.9 % Sodium Chloride 10 Ml Syringe) 10 ml IV Q8 [facility] Last Admin: 09/04/22 05:08 Dose: 10 ml Vancomycin HCl (Vancomycin Per Pharmacy) 1 order IV UD [facility]; Protocol A/P Narrative A/P Narrative: A: *CAP/Atelectasis: *Acute hypoxic respiratory failure: 2/2 above -now on room air *Bacteremia (MRSA): -TTE no vegetations noted -09/02 BC with GPC(likely MRSA) 2/4 bottles , vanco started on 08/31 *Suspected Endocarditis: complicated by septic emboli to the brain *multiple scattered small cerebral infarcts: likely septic emboli 2/2 above *UTI(E. coli),complicated: *Sepsis: 2/2 above -Leukocytosis worsened but bandemia resolved, fever curve improving *Encephalopathy(drowsiness): slowly improving *KWABENA on CKD III: improved *Metabolic acidosis: Improved *Thrombocytopenia, acute: 2/2 above, improving *COPD(not on home O2): *chronic back/joint pain & neuropathy: on robaxin and silvina at home *Substance abuse: With methamphetamine (she states she "snorts" it) *HTN/HLD: *DM2 w/neuropathy: *Hypothyroidism: Continue home Synthroid *GERD: *Morbid obesity: BMI 46 P: -Tele ID following -Currently on Rocephin/azithromycin(finished)/vancomycin -treat as endocarditis, outpt SAILAJA. further recs per ID -Serial BC -restart home silvina, prn robaxin, monitor for sedation -prn O2 -IS/acapella, prn nebs -Monitor urine output/renal function -ACEI/Aldactone held for KWABENA and soft BP -Continue home inhalers -SSI -IS/Acapella -Substance abuse counseling -PT/OT -ppx: SCD, restarted lovenox (hold for plt<50k) /home PPI Time Spent With Patient Time: Total time spent is greater than 50% in coordination of care (as documented) at patient's floor/unit and/or counseling patient: Subsequent: Total time with patient: Greater than or equal to 65 minutes QUALITY VTE Deep Vein Thrombosis/Pulmonary Embolism Present on Admission: No
[2022-09-04 08:30] LABS: Hematocrit 33.9 % (34.1-44.9); Hemoglobin 10.9 g/dL (11.2-15.7); Mean Cell Volume 92.4 fL (80.0-100.0); Mean Corpuscular HGB Conc 32.2 g/dL (31.0-36.0); Mean Platelet Volume 10.6 fL (8.8-12.5); Platelet Count 103 K/mcL (140-440); RBC 3.67 M/mcL (3.59-5.38); Red Cell Distribution Width 15.1 % (11.5-14.5); WBC 20.1 K/mcL (4.5-11.0)
[2022-09-04] MEDS: INSULIN LISPRO 1 UNIT/0.01 ML UNIT SQ SCH ×2 (08:46→13:02)
[2022-09-04 09:06] LABS: ALT/SGPT 41 U/L (<40); AST/SGOT 70 U/L (<32); Albumin/Globulin Ratio 0.7 (1.0-2.3); Alkaline Phosphatase 173 U/L (39-117); Bilirubin,Direct 0.5 mg/dL (<0.3); Bilirubin,Total 0.9 mg/dL (0.1-1.0); Blood Urea Nitrogen 31 mg/dL (8-23); Calcium 7.7 mg/dL (8.6-10.4); Carbon Dioxide 21 mmol/L (22-30); Chloride 103 mmol/L (96-108); Glomerular Filtration Rate 67; Glucose 105 mg/dL (70-105); Lactate Dehydrogenase 400 U/L (135-225); Triglycerides 178 mg/dL (<150); Uric Acid 5.1 mg/dL (2.5-8.0)
[2022-09-04] MEDS: ACETAMINOPHEN 325 MG TABLET PO PRN ×2 (09:06→20:17)
[2022-09-04] MEDS: GABAPENTIN 300 MG CAPSULE PO SCH ×2 (09:07→20:16)
[2022-09-04] MEDS: LEVOTHYROXINE 50 MCG TABLET PO SCH (09:08)
[2022-09-04] MEDS: cefTRIAXone 2 GM in DEXTROSE 5% IN WATER 50 ML IV SCH (09:09)
[2022-09-04] MEDS: OMEPRAZOLE 20 MG CAPSULE PO SCH ×2 (09:09→17:13)
[2022-09-04] MEDS: FLUTICASONE PROPIONATE SPRAY.NAS NS SCH (09:09)
[2022-09-04 09:36] LABS: Anisocytosis 1+ (None Seen); Band Neutrophils % 5 % (0-10); Eosinophils % (Manual) 3 % (0-7); Lymphocytes % 2 % (15-49); Monocytes % (Manual) 8 % (1-12); Myelocytes % 4 %; Platelet Estimate DECREASED (Normal); RBC Morphology ABNORMAL (Normal); Segmented Neutrophils % 78 % (38-78); Toxic Granulation 2+ (None Seen)
--- NOTE | 2022-09-04 10:11 | Internal Med Progress Note ---
SUBJECTIVE Subjective Patient information: Note initiated : 09/04/22 at 10:11 am Principal diagnosis: MRSA high grade bacteremia suspected endocarditis Interval history: This is a 66y/o female PMHx morbid obesity, chronic opoid use disorder on Suboxone, DM2, COPD on home O2, hypothyroidism, recurrent UTIs, and HTN admitted on 08/29 after presenting with altered mental status, with associated nausea and vomiting for the past few days.As per ER records, she complained of back pain. As reported by EMS, witnessed an episode of vomit and diarrhea. Upon initial evaluation, pt was found febrile (tmax 101.9F), tachypneic (26/min), tachycardic (115bpm), hypotensive (83/62mmHg). On labs with marked leukocytosis (18.5k), UA+hazy, 8 wbc, nit neg, leuk neg, SCr 1.7 CXR c/w left lower lobe pneumonia. CT A/P without contrast c/w mild pneumonia involving lingula and LLL and moderate perinephric fat surrounding both kidneys, collection of small bubbles in the subcutaneous fat of the pelvis. UCx growing E. coli, BCx growing MRSA. Pt was initially on IV Vancomycin + Ceftriaxone + Azithromycin. Interim events, Azithromycin has now been discontinued, repeat BCx on 08/31 and 09/02 also growing MRSA, abd/ct pelvis repeated did not show any abscess or collection. TTE study techically difficult but no obvious valvular abnormalities were seen. Pt today still febrile, with increased WBC but improving bandemia, repeat BCx taken today. Pt does endorse she has hx of bacteremia in the past but not MRSA. She is AAOx3 but drowsy after taking her morning gabapentin medication. Constitutional Vitals: Vital Signs Temp Pulse Resp BP Pulse Ox O2 Del Method O2 Flow Rate 97.3 F 80 24 H 89/39 97 Room Air 2 09/04/22 08:01 09/04/22 10:01 09/04/22 10:01 09/04/22 10:01 09/04/22 10:01 09/04/22 10:01 09/03/22 14:00 Period Temp Pulse Resp BP Sys/Garza Pulse Ox O2 Del Method O2 Flow Rate Last 24 Hr 97.3 F-100.1 F 69-91 17-28 89-143/37-69 92-99 Nasal Cannula- Room Air 2 Intake and Output 09/03/22 09/04/22 09/04/22 19:59 03:59 11:59 Intake Total 1080 545 480 Output Total 800 200 Balance 1080 -255 280 Weight 294 lb 11.2 oz Intake & Output: Intake & Output 09/03/22 09/04/22 09/04/22 19:59 03:59 11:59 Intake Total 1080 545 480 Output Total 800 200 Balance 1080 -255 280 Weight 294 lb 11.2 oz Intake: IV 65 Oral 1080 480 480 Output: Urine Catheter Amount 720 200 Void Amount 80 Other: Meal Dinner Percent of Meal Consumed 75% Feeding Ability Total Assistance Nourishment/Supplement name 240 Urine Appearance Clear Clear Uretheral ([place]) Clear Urine Color Dark Yellow Yellow Uretheral ([place]) Dark Alisha Urine Odor Normal Normal General appearance: moderate distress and morbidly obese Head Head exam: Present atraumatic and normal inspection Neck Neck exam: Present full ROM GI/Abdominal GI/Abdominal exam: Present soft Additional comments: globose due to adipose tissue Additional comments: indwelling [place] catheter Neurological Exam Neurological exam: Present oriented X3 Additional comments: bedridden Skin Skin exam: Present abrasion (right groin ) OBJ DATA Labs 09/04/22 05:31 09/04/22 05:31 Labs: Abnormal Lab Results 09/04/22 09/04/22 09/03/22 05:31 05:31 08:04 WBC 20.1 H Hgb 10.9 L Hct 33.9 L MCHC RDW 15.1 H Plt Count 103 L Band Neutrophils % Lymphocytes % 2 L Monocytes % (Manual) WBC Morphology Abnormal A Vacuolated Neuts 1+ A Toxic Granulation 2+ A Platelet Estimate Decreased A RBC Morphology Abnormal A Anisocytosis 1+ A Chloride Carbon Dioxide 21 L BUN 31 H Creatinine Glucose Calcium 7.7 L Direct Bilirubin 0.5 H GGT 323 H AST 70 H ALT 41 H Alkaline Phosphatase 173 H Lactate Dehydrogenase 400 H Total Protein 5.0 L Albumin 2.0 L Albumin/Globulin Ratio 0.7 L Triglycerides 178 H Vancomycin Trough 24.8 H* 09/03/22 09/03/22 09/02/22 05:09 04:00 05:19 WBC 17.8 H Hgb 11.0 L Hct MCHC RDW 15.5 H Plt Count 91 L Band Neutrophils % Lymphocytes % 3 L Monocytes % (Manual) WBC Morphology Vacuolated Neuts Toxic Granulation Platelet Estimate Decreased A RBC Morphology Abnormal A Anisocytosis 1+ A Chloride 109 H Carbon Dioxide BUN 41 H 39 H Creatinine Glucose 138 H 112 H Calcium 7.9 L 8.4 L Direct Bilirubin 0.6 H 0.7 H GGT 300 H 267 H AST 67 H 63 H ALT Alkaline Phosphatase 182 H 171 H Lactate Dehydrogenase 353 H 368 H Total Protein 4.9 L 5.0 L Albumin 1.9 L 2.1 L Albumin/Globulin Ratio 0.6 L 0.7 L Triglycerides 184 H 195 H Vancomycin Trough 09/02/22 09/01/22 05:19 07:56 WBC 15.4 H Hgb Hct MCHC 30.9 L RDW 15.6 H Plt Count 54 L Band Neutrophils % 19 H Lymphocytes % 6 L Monocytes % (Manual) 14 H WBC Morphology Abnormal A Vacuolated Neuts Toxic Granulation 1+ A Platelet Estimate Decreased A RBC Morphology Abnormal A Anisocytosis 1+ A Chloride Carbon Dioxide 19 L BUN 42 H Creatinine 1.2 H Glucose 108 H Calcium 8.2 L Direct Bilirubin 0.8 H GGT 136 H AST 45 H ALT Alkaline Phosphatase 126 H Lactate Dehydrogenase 362 H Total Protein 5.2 L Albumin 2.1 L Albumin/Globulin Ratio 0.7 L Triglycerides 223 H Vancomycin Trough Meds: Medications Acetaminophen (Acetaminophen 325 Mg Tablet) 650 mg PO Q4-6HP PRN; Protocol PRN Reason: Per Pain Protocol/Fever > 101 Last Admin: 09/04/22 09:06 Dose: 650 mg Albuterol/Ipratropium (Ipratropium/Albuterol 3 Ml Ampul.Neb) 3 ml NEB Q6HP PRN PRN Reason: Shortness Of Breath Last Admin: 08/30/22 12:17 Dose: 3 ml Dextrose (Dextrose 50% 50 Ml Vial) 0 ml IV UD PRN PRN Reason: Per Sliding Scale Diagnostic Test (Pha) (Accu-Chek 1 Each Strip) 1 each FS ACHS [facility] Last Admin: 09/04/22 08:46 Dose: 1 each Fluticasone Propionate (Fluticasone Propionate [place].Chetan) 2 spray NS DAILY [facility] Last Admin: 09/04/22 09:09 Dose: 2 spray Gabapentin (Gabapentin 300 Mg Capsule) 600 mg PO BID [facility] Last Admin: 09/04/22 09:07 Dose: 600 mg Glucose (Dextrose 31 Gm Oral.Susp) 15 gm PO PRN PRN PRN Reason: Hypoglycemia Ceftriaxone Sodium 2 gm/ (Dextrose) 50 mls @ 100 mls/hr IV Q24H [facility] Stop: 09/06/22 12:00 Last Admin: 09/04/22 09:09 Dose: 100 mls/hr Acetaminophen (Ofirmev) 650 mg in 65 mls @ 130 mls/hr IV Q6HP PRN; Protocol PRN Reason: PAIN/FEVER > 101 Last Infusion: 09/04/22 02:20 Dose: Infused Vancomycin HCl 1,500 mg/ (Sodium Chloride) 500 mls @ 333.3 mls/hr IV Q24H [facility] Insulin Human Lispro (Insulin Lispro 1 Unit/0.01 Ml Unit) 0 unit SQ ACHS [facility]; Protocol Last Admin: 09/04/22 08:46 Dose: Not Given Labetalol HCl (Labetalol 5 Mg/Ml Ml) 0 mg IV Q2HP PRN PRN Reason: Hypertension Levothyroxine Sodium (Levothyroxine 50 Mcg Tablet) 50 mcg PO DAILY [facility] Last Admin: 09/04/22 09:08 Dose: 50 mcg Methocarbamol (Methocarbamol 500 Mg Tablet) 500 mg PO Q6HP PRN PRN Reason: Muscle Spasm Omeprazole (Omeprazole 20 Mg Capsule) 20 mg PO BIDAC [facility] Last Admin: 09/04/22 09:09 Dose: 20 mg Ondansetron HCl (Ondansetron 4 Mg/2 Ml Vial) 4 mg IV Q4-6HP PRN; Protocol PRN Reason: Nausea And Vomiting Budesonide- Formoterol [ Symbicort] 160-4.5 Mcg Inhaler 2 dose INH BIDP PRN PRN Reason: asthma Sodium Chloride (0.9 % Sodium Chloride 10 Ml Syringe) 10 ml IV Q8 [facility] Last Admin: 09/04/22 05:08 Dose: 10 ml Vancomycin HCl (Vancomycin Per Pharmacy) 1 order IV UD [facility]; Protocol A/P Assessment and plan (1) MRSA (methicillin resistant Staphylococcus aureus) septicemia: Assessment and plan: This is a 66y/o female PMHx morbid obesity, chronic opoid use disorder on Suboxone, DM2, COPD on home O2, hypothyroidism, recurrent UTIs, and HTN admitted on 08/29 after presenting with altered mental status, nausea, vomit, diarrhea, and back pain. On admission, pt febrile, tachypneic, tachycardic, hypotensive. On labs with marked leukocytosis (18.5k), UA+, KWABENA, CXR+ LLL, CT A/P without contrast c/w mild pneumonia involving lingula and LLL and moderate perinephric fat surrounding both kidneys, collection of small bubbles in the subcutaneous fat of the pelvis. UCx growing E. coli, BCx growing MRSA on 08/29. Pt is currently on IV Vancomycin + Ceftriaxone (completed 5 days Azithromycin), repeat BCx on 08/31 and 09/02 still growing GPC likely MRSA which suggest high grade bacteremia, and still febrile. No identifiable source of infection. TTE study was technically difficult but no obvious valvular abnormalities were detected. Will need to be treated as a suspected endocarditis and obtain SAILAJA at some point. Pt is more alert today, bandemia decreasing. Plan: - continue Vancomycin 1500mg IV q12hrs, monitor vanco trough levels to keep range between 15-20 - complete 7 day course with Ceftriaxone 2g IV daily - will need to complete 6 week course IV antibiotics starting from the day of negative blood cultures -will need SAILAJA at some point - follow up repeat BCx obtained today Status: Acute (2) Pneumonia involving left lung: Status: Acute (3) E. coli pyelonephritis: Status: Acute Time Spent With Patient Time: Total time spent is greater than 50% in coordination of care (as documented) at patient's floor/unit and/or counseling patient: Subsequent: Total time with patient: Less than 25 minutes Total Critical Care Time: 20 (mins) Attestation: Sarah Caldera MD QUALITY VTE Deep Vein Thrombosis/Pulmonary Embolism Present on Admission: No
[2022-09-04] MEDS: VANCOMYCIN 1,500 MG in 0.9 % SODIUM CHLORIDE 500 ML IV SCH (11:20)
[2022-09-04] MEDS ORDERED: SENNOSIDES 1 TABLET PO PRN (13:04)
[2022-09-04] MEDS ORDERED: POLYETHYLENE GLYCOL 3350 17 GM PACKET PO PRN (13:05)
[2022-09-04] MEDS: METHOCARBAMOL 500 MG TABLET PO PRN (13:27)
--- NOTE | 2022-09-04 16:32 | Magnetic Resonance Report ---
CLINICAL INFORMATION: Acute mental status degeneration COMPARISON: None. TECHNIQUE:Sagittal T1 FLAIR, axial T1 FLAIR, T2 FLAIR propeller, T2 propeller, gradient, diffusion, ADC and coronal T2 weighted images were acquired. FINDINGS: The ventricles, sulci, fissures and cisterns are normal in size and configuration-no for age extra-axial fluid collections or masses are appreciated. There are scattered (approximately 15 lesions in the deep cerebral white matter ranging between three and 9 mm with a solitary 6 mm lesion in the left cerebellar vermis. These showed decreased signal T1 and increased signal on T2 /FLAIR and and restricted diffusion. The signal void in intracerebral arteries, extra-axial cranial nerves, pituitary, orbits and paranasal sinuses are all normal. IMPRESSION: Multiple small lesions in the deep cerebral white matter which demonstrate restricted diffusion. A solitary 6 mm lesion noted in the left cerebellar vermis. The primary diagnostic consideration would be multiple acute emboli which involves both anterior and left posterior circulations. In this distribution, would typically, from a cardiac source in the left ventricle. Suggest echocardiography. It is possible, but less likely, the patient has acute demyelinating process such as ADEM. It would be an atypical distribution for MS. Scattered septic emboli are possible as well. Interpreted and Authenticated by: Mati Johnston 09/04/22
[2022-09-04] MEDS: DOCUSATE SODIUM 100 MG CAPSULE PO SCH (20:17)
[2022-09-04 20:35] LABS: HDL Cholesterol 17 mg/dL (>40); LDL Cholesterol,Calculated 79 mg/dL (<100); Non-HDL Cholesterol 115 mg/dL (<130); Triglycerides 185 mg/dL (<150)
[2022-09-05] MEDS: 0.9 % SODIUM CHLORIDE 10 ML SYRINGE IV SCH ×2 (05:15→15:26)
[2022-09-05 07:18] LABS: ALT/SGPT 34 U/L (<40); AST/SGOT 52 U/L (<32); Albumin 2.1 gm/dL (3.2-5.2); Albumin/Globulin Ratio 0.7 (1.0-2.3); Alkaline Phosphatase 161 U/L (39-117); Bilirubin,Direct 0.4 mg/dL (<0.3); Bilirubin,Total 0.7 mg/dL (0.1-1.0); Blood Urea Nitrogen 27 mg/dL (8-23); Calcium 7.8 mg/dL (8.6-10.4); Carbon Dioxide 22 mmol/L (22-30); Chloride 102 mmol/L (96-108); Globulin 3.2 gm/dL (2.2-3.7); Glomerular Filtration Rate 67; Glucose 101 mg/dL (70-105); Lactate Dehydrogenase 405 U/L (135-225); Phosphorous 3.4 mg/dL (2.5-4.5); Triglycerides 199 mg/dL (<150)
--- NOTE | 2022-09-05 07:52 | Internal Med Progress Note ---
SUBJECTIVE Subjective Patient information: Note initiated : 09/05/22 at 7:48 am Service Date, if different from initiated Date: [] Patient: Elicia Ricks a 66 y/o F admitted on 08/29/22 for n/v, diarrhea; sepsis, toxic metabolic . Chief Complaint: [] Principal diagnosis: MRSA high grade bacteremia suspected endocarditis Interval history: History of present illness: Ms. Ricks is a 66 year old F with a complex PMHx significant for polypharmacy, chronic opoid use disorder on Subonxone, DM2, COPDon home O2, hypothyroidism, and HTN who presents to the hospital w/ AMS. The patient was encephalopathic and hx was obtained second hard from chart review and from nursing. She was brought in via EMS. On arrival, she was HD stable but febrile. She was found to have grossly positive UA and infiltrate on CXR. The patient was also noted to have KWABENA. The hospitalist service was asked to admit her for further mx and evaluation of her toxic metabolic encephalopathy and sepsis. 08/31 The patient's pupils are pinpoint today. She remains altered. I spoke with the RN who states that she was quite agitated and then she had 2 visitors come in after that she became somnolent and calm. There is concerns that she ingested an illicit substance after the visit. 09/01 Patient is quite drowsy but does awaken easily to voice. No new complaints. Seems to be on room air this morning. Thrombocytopenia mildly worsened. The persistent leukocytosis slightly worse. Creatinine worsened. Repeat renal ultrasound pending urine studies pending IV fluids today. Hypomagnesemia and replace. Procalcitonin improving. Chemistry report incorrect. Just received updated lab report showing creatinine stable. And magnesium was not low. BC from growing GPC, but pt had not been on Vanco up until that point. 09/02 Patient seems quite drowsy still but easily awakens and answers questions. No new complaints. She says she slept okay. Leukocytosis mildly improved But bandemia worse. Echo did not show any vegetations on TTE. Thrombocytopenia mildly better. Renal function better. 09/03 Patient still drowsy but seems to be a little bit more alert and is answering questions appropriately. Leukocytosis worse but bandemia has resolved. Repeat blood cultures on the are positive for gram-positive cocci. Serial blood cultures. Follow-up labs. 09/04 Feeling better today. More alert and awake. Feeling closer to her baseline although she does complain of increased back and leg pain which is her chronic pain, I have held the Robaxin and gabapentin for her Decreased LOC. Fever curve improving. Persistent leukocytosis but no more bandemia. Repeat blood cultures done this morning. 09/05 Patient states she slept well last night. Feeling better. Again more alert and awake. MRI brain showing scattered septic emboli. Working with physical therapy right now. Repeat blood cultures from the are positive. Repeat blood cultures in the morning. ID following. Persistent leukocytosis even though bandemia has resolved. Thrombocytopenia improved. Mild hyponatremia. Mild transaminitis. Review of Systems: denies headache/fever/chills/nausea/vomiting/chest or abdominal pain/diarrhea. Otherwise see above. PHYSICAL EXAM General: Awake, no acute Distress, obese Eyes/N/T: EOMI, no scleral icterus, Head/Neck: neck supple, full ROM, CV: Regular with occasional irregularity, No murmurs, Pulm: Clear b/l, no wheezing/rhonchi/rales, no respiratory distress Abd: soft, nontender, +BS x4 Ext: no clubbing/cyanosis, 2+ b/l LE edema, nontender Neuro: Alert and awake, mentation much improved, no focal deficits, moves all extremities, sensations intact b/l upper/lower, answers questions appropriately Psychiatric: Skin: warm/dry, normal color Constitutional Vitals: Vital Signs Temp Pulse Resp BP Pulse Ox O2 Del Method O2 Flow Rate 99.6 F H 82 22 104/55 96 Room Air 0 09/05/22 04:03 09/05/22 06:01 09/05/22 06:01 09/05/22 06:01 09/05/22 06:01 09/05/22 06:01 09/04/22 18:01 Period Temp Pulse Resp BP Sys/Garza Pulse Ox O2 Del Method O2 Flow Rate Last 24 Hr 97.3 F-100.9 F 72-85 19-27 84-136/39-92 94-98 Room Air-Room Air 0 Intake and Output 09/04/22 09/05/22 09/05/22 19:59 03:59 11:59 Intake Total 740 480 Output Total 990 230 330 Balance -250 -230 150 Weight 136.713 kg Intake & Output: Intake & Output 09/04/22 09/05/22 09/05/22 19:59 03:59 11:59 Intake Total 740 480 Output Total 990 230 330 Balance -250 -230 150 Weight 136.713 kg Intake: Nourishment/Supplement quantity 240 (ml) IV 500 Vancomycin 1,500 mg In Sodium 500 Chloride 0.9% 500 ml @ 333.3 mls/hr IV Q24H [facility] Rx#: [id number] Oral 480 Output: Urine Catheter Amount 990 230 330 Other: Meal Lunch Percent of Meal Consumed 90 Feeding Ability Assist with Tray Set Up Nourishment/Supplement name Glucerna Urine Appearance Clear Clear Clear Uretheral ([place]) Clear Urine Color Dark Yellow Yellow Yellow Uretheral ([place]) Dark Yellow Urine Odor Normal Normal Normal OBJ DATA Labs 09/04/22 05:31 09/05/22 05:46 Labs: Abnormal Lab Results 09/05/22 09/04/22 09/04/22 05:46 05:31 05:31 WBC Hgb Hct RDW Plt Count Band Neutrophils % Lymphocytes % Monocytes % (Manual) WBC Morphology Vacuolated Neuts Toxic Granulation Platelet Estimate RBC Morphology Anisocytosis Sodium 132 L Carbon Dioxide 21 L BUN 27 H 31 H Glucose Calcium 7.8 L 7.7 L Direct Bilirubin 0.4 H 0.5 H GGT 295 H 323 H AST 52 H 70 H ALT 41 H Alkaline Phosphatase 161 H 173 H Lactate Dehydrogenase 405 H 400 H Total Protein 5.3 L 5.0 L Albumin 2.1 L 2.0 L Albumin/Globulin Ratio 0.7 L 0.7 L Triglycerides 199 H 185 H 178 H HDL Cholesterol 17 L Vancomycin Trough 09/04/22 09/03/22 09/03/22 05:31 08:04 05:09 WBC 20.1 H 17.8 H Hgb 10.9 L 11.0 L Hct 33.9 L RDW 15.1 H 15.5 H Plt Count 103 L 91 L Band Neutrophils % Lymphocytes % 2 L 3 L Monocytes % (Manual) WBC Morphology Abnormal A Vacuolated Neuts 1+ A Toxic Granulation 2+ A Platelet Estimate Decreased A Decreased A RBC Morphology Abnormal A Abnormal A Anisocytosis 1+ A 1+ A Sodium Carbon Dioxide BUN Glucose Calcium Direct Bilirubin GGT AST ALT Alkaline Phosphatase Lactate Dehydrogenase Total Protein Albumin Albumin/Globulin Ratio Triglycerides HDL Cholesterol Vancomycin Trough 24.8 H* 03/19/23 03/18/23 04:00 05:19 WBC Hgb Hct RDW Plt Count Band Neutrophils % 19 H Lymphocytes % 6 L Monocytes % (Manual) 14 H WBC Morphology Abnormal A Vacuolated Neuts Toxic Granulation 1+ A Platelet Estimate Decreased A RBC Morphology Abnormal A Anisocytosis 1+ A Sodium Carbon Dioxide BUN 41 H Glucose 138 H Calcium 7.9 L Direct Bilirubin 0.6 H GGT 300 H AST 67 H ALT Alkaline Phosphatase 182 H Lactate Dehydrogenase 353 H Total Protein 4.9 L Albumin 1.9 L Albumin/Globulin Ratio 0.6 L Triglycerides 184 H HDL Cholesterol Vancomycin Trough Meds: Medications Acetaminophen (Acetaminophen 325 Mg Tablet) 650 mg PO Q4-6HP PRN; Protocol PRN Reason: Per Pain Protocol/Fever > 101 Last Admin: 09/04/22 20:17 Dose: 650 mg Albuterol/Ipratropium (Ipratropium/Albuterol 3 Ml Ampul.Neb) 3 ml NEB Q6HP PRN PRN Reason: Shortness Of Breath Last Admin: 08/30/22 12:17 Dose: 3 ml Dextrose (Dextrose 50% 50 Ml Vial) 0 ml IV UD PRN PRN Reason: Per Sliding Scale Docusate Sodium (Docusate Sodium 100 Mg Capsule) 100 mg PO BID [facility] Last Admin: 09/04/22 20:17 Dose: 100 mg Fluticasone Propionate (Fluticasone Propionate [place]hetan) 2 spray NS DAILY [facility] Last Admin: 09/04/22 09:09 Dose: 2 spray Gabapentin (Gabapentin 300 Mg Capsule) 600 mg PO BID [facility] Last Admin: 09/04/22 20:16 Dose: 600 mg Glucose (Dextrose 31 Gm Oral.Susp) 15 gm PO PRN PRN PRN Reason: Hypoglycemia Ceftriaxone Sodium 2 gm/ (Dextrose) 50 mls @ 100 mls/hr IV Q24H [facility] Stop: 09/06/22 12:00 Last Infusion: 09/04/22 11:21 Dose: Infused Acetaminophen (Ofirmev) 650 mg in 65 mls @ 130 mls/hr IV Q6HP PRN; Protocol PRN Reason: PAIN/FEVER > 101 Last Infusion: 09/04/22 02:20 Dose: Infused Vancomycin HCl 1,500 mg/ (Sodium Chloride) 500 mls @ 333.3 mls/hr IV Q24H [facility] Last Infusion: 09/04/22 12:51 Dose: Infused Labetalol HCl (Labetalol 5 Mg/Ml Ml) 0 mg IV Q2HP PRN PRN Reason: Hypertension Levothyroxine Sodium (Levothyroxine 50 Mcg Tablet) 50 mcg PO DAILY [facility] Last Admin: 09/04/22 09:08 Dose: 50 mcg Methocarbamol (Methocarbamol 500 Mg Tablet) 500 mg PO Q6HP PRN PRN Reason: Muscle Spasm Last Admin: 09/04/22 13:27 Dose: 500 mg Omeprazole (Omeprazole 20 Mg Capsule) 20 mg PO BIDAC [facility] Last Admin: 09/04/22 17:13 Dose: 20 mg Ondansetron HCl (Ondansetron 4 Mg/2 Ml Vial) 4 mg IV Q4-6HP PRN; Protocol PRN Reason: Nausea And Vomiting Budesonide- Formoterol [ Symbicort] 160-4.5 Mcg Inhaler 2 dose INH BIDP PRN PRN Reason: asthma Polyethylene Glycol (Polyethylene Glycol 3350 17 Gm Packet) 17 gm PO DAILYP PRN PRN Reason: Constipation Last Admin: 09/04/22 13:23 Dose: 17 gm Senna (Sennosides 1 Tablet) 1 tab PO HSP PRN PRN Reason: Constipation Last Admin: 09/04/22 13:23 Dose: 1 tab Sodium Chloride (0.9 % Sodium Chloride 10 Ml Syringe) 10 ml IV Q8 [facility] Last Admin: 09/05/22 05:15 Dose: 10 ml Vancomycin HCl (Vancomycin Per Pharmacy) 1 order IV UD [facility]; Protocol A/P Narrative A/P Narrative: A: *CAP/Atelectasis: *Acute hypoxic respiratory failure: 2/2 above -now on room air *Bacteremia (MRSA): -09/04 BC (+) *Suspected Endocarditis: complicated by septic emboli to the brain -TTE no vegetations noted, will need SAILAJA outpt *multiple scattered small cerebral infarcts: likely septic emboli 2/2 above *UTI(E. coli),complicated: *Sepsis: 2/2 above -Leukocytosis persistent but bandemia resolved, fever curve continues to improve *Encephalopathy(drowsiness): much improved dnow *KWABENA on CKD III: resolved *Metabolic acidosis: Improved *Thrombocytopenia, acute: 2/2 above, improved *COPD(not on home O2): *chronic back/joint pain & neuropathy: on robaxin and silvina at home *Substance abuse: With methamphetamine (she states she "snorts" it) *HTN/HLD: *DM2 w/neuropathy: *Hypothyroidism: Continue home Synthroid *GERD: *Morbid obesity: BMI 46 *peripheral edema P: -Tele ID following -ID recommends transfer to higher level of care for SAILAJA and CTS eval for persistent Bacteremia and septic emboli -Currently on Rocephin/azithromycin(finished)/vancomycin -treat for endocarditis, outpt SAILAJA. further recs per ID -Serial BC -restarted home silvina, prn robaxin, monitor for sedation -prn O2 -IS/acapella, prn nebs -Monitor urine output/renal function -ACEI held for soft BP -IV lasix for edema with albumin given for soft BP and low albumin, Zuri -Continue home inhalers -SSI -IS/Acapella -Substance abuse counseling -PT/OT -ppx: SCD, restarted lovenox (hold for plt<50k) /home PPI Time Spent With Patient Time: Total time spent is greater than 50% in coordination of care (as documented) at patient's floor/unit and/or counseling patient: Subsequent: Total time with patient: 50 - 65 Minutes QUALITY VTE Deep Vein Thrombosis/Pulmonary Embolism Present on Admission: No
[2022-09-05] MEDS: cefTRIAXone 2 GM in DEXTROSE 5% IN WATER 50 ML IV SCH (08:17)
[2022-09-05] MEDS: OMEPRAZOLE 20 MG CAPSULE PO SCH (08:17)
[2022-09-05] MEDS: ACETAMINOPHEN 325 MG TABLET PO PRN ×2 (08:18→15:25)
[2022-09-05] MEDS: GABAPENTIN 300 MG CAPSULE PO SCH (08:18)
[2022-09-05] MEDS: DOCUSATE SODIUM 100 MG CAPSULE PO SCH (08:18)
[2022-09-05] MEDS: LEVOTHYROXINE 50 MCG TABLET PO SCH (08:22)
[2022-09-05 09:09] LABS: Basophils # (Auto) 0.14 K/mcL (0.00-0.30); Basophils % (Auto) 0.6 % (0.0-2.0); Eosinophils # (Auto) 0.34 K/mcL (0.00-0.70); Eosinophils % (Auto) 1.6 % (0.0-7.0); Hematocrit 35.1 % (34.1-44.9); Hemoglobin 10.9 g/dL (11.2-15.7); Lymphocytes # (Auto) 1.64 K/mcL (1.50-4.80); Lymphocytes % (Auto) 7.5 % (15.5-49.0); Mean Cell Volume 94.1 fL (80.0-100.0); Mean Corpuscular HGB Conc 31.1 g/dL (31.0-36.0); Mean Platelet Volume 10.2 fL (8.8-12.5); Monocytes # (Auto) 1.93 K/mcL (0.10-0.90); Monocytes % (Auto) 8.9 % (1.0-12.0); Neutrophils % (Auto) 68.7 % (38.0-78.0); Platelet Count 130 K/mcL (140-440); RBC 3.73 M/mcL (3.59-5.38); Red Cell Distribution Width 15.1 % (11.5-14.5); WBC 21.7 K/mcL (4.5-11.0)
[2022-09-05] MEDS: VANCOMYCIN 1,500 MG in 0.9 % SODIUM CHLORIDE 500 ML IV SCH (09:18)
[2022-09-05] MEDS: FLUTICASONE PROPIONATE SPRAY.NAS NS SCH (09:18)
[2022-09-05] MEDS ORDERED: FUROSEMIDE 40 MG/4 ML VIAL IV ONE (10:19)
[2022-09-05] MEDS ORDERED: ALBUMIN HUMAN 12.5 GM/50 ML VIAL IV ONE (10:19)
[2022-09-05] MEDS ORDERED: ENOXAPARIN 40 MG/0.4 ML SYRINGE SQ ONE (10:21)
--- NOTE | 2022-09-05 10:47 | Internal Med Progress Note ---
SUBJECTIVE Subjective Patient information: Note initiated : 09/05/22 at 10:46 am This is a 66y/o female PMHx morbid obesity, chronic opoid use disorder on Suboxone, DM2, COPD on home O2, hypothyroidism, recurrent UTIs, and HTN admitted on 08/29 after presenting with altered mental status, with associated nausea and vomiting for the past few days.As per ER records, she complained of back pain. As reported by EMS, witnessed an episode of vomit and diarrhea. Upon initial evaluation, pt was found febrile (tmax 101.9F), tachypneic (26/min), tachycardic (115bpm), hypotensive (83/62mmHg). On labs with marked leukocytosis (18.5k), UA+hazy, 8 wbc, nit neg, leuk neg, SCr 1.7 CXR c/w left lower lobe pneumonia. CT A/P without contrast c/w mild pneumonia involving lingula and LLL and moderate perinephric fat surrounding both kidneys, collection of small bubbles in the subcutaneous fat of the pelvis. UCx growing E. coli, BCx growing MRSA. Pt was initially on IV Vancomycin + Ceftriaxone + Azithromycin. Interim events, Azithromycin has now been discontinued, repeat BCx on 08/31 and 09/02 also growing MRSA, abd/ct pelvis repeated did not show any abscess or collection. TTE study techically difficult but no obvious valvular abnormalities were seen. Pt today still febrile, with increased WBC but improving bandemia, repeat BCx taken on 09/04 still growing GPC likely MRSA. Brain MRI was performed consistent with findings of multiple small lesions with primary diagnostic consideration of multiple acute emboli which involves both anterior and left posterior circulations with a solitary 6mm lesion noted in the left cerebellar vermis. Suggested Echocardiography. Principal diagnosis: MRSA high grade bacteremia suspected endocarditis Interval history: Brain MRI performed Constitutional Vitals: Vital Signs Temp Pulse Resp BP Pulse Ox O2 Del Method O2 Flow Rate 99.7 F H 83 24 H 99/47 95 Room Air 0 09/05/22 08:18 09/05/22 08:01 09/05/22 08:01 09/05/22 08:01 09/05/22 08:01 09/05/22 08:01 09/04/22 18:01 Period Temp Pulse Resp BP Sys/Garza Pulse Ox O2 Del Method O2 Flow Rate Last 24 Hr 99.0 F-100.9 F 72-85 19-27 93-136/42-92 94-98 Room Air-Room Air 0 Intake and Output 09/04/22 09/05/22 09/05/22 19:59 03:59 11:59 Intake Total 740 1370 Output Total 990 230 330 Balance -250 -230 1040 Weight 301 lb 6.4 oz Intake & Output: Intake & Output 09/04/22 09/05/22 09/05/22 19:59 03:59 11:59 Intake Total 740 1370 Output Total 990 230 330 Balance -250 -230 1040 Weight 301 lb 6.4 oz Intake: Nourishment/Supplement quantity 240 240 (ml) IV 500 50 Vancomycin 1,500 mg In Sodium 500 Chloride 0.9% 500 ml @ 333.3 mls/hr IV Q24H [facility] Rx#: [id number] Rocephin 2 gm In Dextrose 5% in 50 Water 50 ml @ 100 mls/hr IV Q24H [facility] Rx#:[id number] Oral 1080 Output: Urine Catheter Amount 990 230 330 Other: Meal Lunch Breakfast Percent of Meal Consumed 90 50% Feeding Ability Assist with Tray Set Up Independent Nourishment/Supplement name Glucerna breakfast carnation Urine Appearance Clear Clear Clear Uretheral ([place]) Clear Urine Color Dark Yellow Yellow Yellow Uretheral ([place]) Dark Yellow Urine Odor Normal Normal Normal General appearance: morbidly obese and no acute distress Exam: sitting by the bedside Head Head exam: Present atraumatic and normal inspection Respiratory Respiratory exam: Present normal respiratory exam Cardiovascular Cardiovascular exam: Present tachycardia GI/Abdominal Additional comments: globose due to adipose tissue Neurological Exam Neurological exam: Present oriented X3 Psychiatric Psychiatric exam: Present normal affect OBJ DATA Labs 09/05/22 05:46 09/05/22 05:46 Labs: Abnormal Lab Results 09/05/22 09/05/22 09/04/22 05:46 05:46 05:31 WBC 21.7 H Hgb 10.9 L Hct RDW 15.1 H Plt Count 130 L Immature Gran % (Auto) 12.7 H Lymph % (Auto) 7.5 L [place] # (Auto) 1.93 H Lymphocytes % Immature Gran # 2.77 H Absolute Neutrophils 14.91 H WBC Morphology Vacuolated Neuts Toxic Granulation Platelet Estimate RBC Morphology Anisocytosis Sodium 132 L Carbon Dioxide BUN 27 H Glucose Calcium 7.8 L Direct Bilirubin 0.4 H GGT 295 H AST 52 H ALT Alkaline Phosphatase 161 H Lactate Dehydrogenase 405 H Total Protein 5.3 L Albumin 2.1 L Albumin/Globulin Ratio 0.7 L Triglycerides 199 H 185 H HDL Cholesterol 17 L Vancomycin Trough 09/04/22 09/04/22 09/03/22 05:31 05:31 08:04 WBC 20.1 H Hgb 10.9 L Hct 33.9 L RDW 15.1 H Plt Count 103 L Immature Gran % (Auto) Lymph % (Auto) [place] # (Auto) Lymphocytes % 2 L Immature Gran # Absolute Neutrophils WBC Morphology Abnormal A Vacuolated Neuts 1+ A Toxic Granulation 2+ A Platelet Estimate Decreased A RBC Morphology Abnormal A Anisocytosis 1+ A Sodium Carbon Dioxide 21 L BUN 31 H Glucose Calcium 7.7 L Direct Bilirubin 0.5 H GGT 323 H AST 70 H ALT 41 H Alkaline Phosphatase 173 H Lactate Dehydrogenase 400 H Total Protein 5.0 L Albumin 2.0 L Albumin/Globulin Ratio 0.7 L Triglycerides 178 H HDL Cholesterol Vancomycin Trough 24.8 H* 09/03/22 09/03/22 05:09 04:00 WBC 17.8 H Hgb 11.0 L Hct RDW 15.5 H Plt Count 91 L Immature Gran % (Auto) Lymph % (Auto) [place] # (Auto) Lymphocytes % 3 L Immature Gran # Absolute Neutrophils WBC Morphology Vacuolated Neuts Toxic Granulation Platelet Estimate Decreased A RBC Morphology Abnormal A Anisocytosis 1+ A Sodium Carbon Dioxide BUN 41 H Glucose 138 H Calcium 7.9 L Direct Bilirubin 0.6 H GGT 300 H AST 67 H ALT Alkaline Phosphatase 182 H Lactate Dehydrogenase 353 H Total Protein 4.9 L Albumin 1.9 L Albumin/Globulin Ratio 0.6 L Triglycerides 184 H HDL Cholesterol Vancomycin Trough Meds: Medications Acetaminophen (Acetaminophen 325 Mg Tablet) 650 mg PO Q4-6HP PRN; Protocol PRN Reason: Per Pain Protocol/Fever > 101 Last Admin: 09/05/22 08:18 Dose: 650 mg Albuterol/Ipratropium (Ipratropium/Albuterol 3 Ml Ampul.Neb) 3 ml NEB Q6HP PRN PRN Reason: Shortness Of Breath Last Admin: 08/30/22 12:17 Dose: 3 ml Dextrose (Dextrose 50% 50 Ml Vial) 0 ml IV UD PRN PRN Reason: Per Sliding Scale Docusate Sodium (Docusate Sodium 100 Mg Capsule) 100 mg PO BID [facility] Last Admin: 09/05/22 08:18 Dose: 100 mg Enoxaparin Sodium (Enoxaparin 30 Mg/0.3 Ml Syringe) 30 mg SQ BID [facility] Fluticasone Propionate (Fluticasone Propionate [place].Chetan) 2 spray NS DAILY [facility] Last Admin: 09/05/22 09:18 Dose: 2 spray Gabapentin (Gabapentin 300 Mg Capsule) 600 mg PO BID [facility] Last Admin: 09/05/22 08:18 Dose: 600 mg Glucose (Dextrose 31 Gm Oral.Susp) 15 gm PO PRN PRN PRN Reason: Hypoglycemia Ceftriaxone Sodium 2 gm/ (Dextrose) 50 mls @ 100 mls/hr IV Q24H [facility] Stop: 09/06/22 12:00 Last Infusion: 09/05/22 08:47 Dose: Infused Acetaminophen (Ofirmev) 650 mg in 65 mls @ 130 mls/hr IV Q6HP PRN; Protocol PRN Reason: PAIN/FEVER > 101 Last Infusion: 09/04/22 02:20 Dose: Infused Vancomycin HCl 1,500 mg/ (Sodium Chloride) 500 mls @ 333.3 mls/hr IV Q24H [facility] Last Admin: 09/05/22 09:18 Dose: 333.3 mls/hr Albumin Human (Buminate) 12.5 gm in 50 mls @ 100 mls/hr IV ONCE ONE Stop: 09/05/22 10:48 Labetalol HCl (Labetalol 5 Mg/Ml Ml) 0 mg IV Q2HP PRN PRN Reason: Hypertension Levothyroxine Sodium (Levothyroxine 50 Mcg Tablet) 50 mcg PO DAILY [facility] Last Admin: 09/05/22 08:22 Dose: 50 mcg Methocarbamol (Methocarbamol 500 Mg Tablet) 500 mg PO Q6HP PRN PRN Reason: Muscle Spasm Last Admin: 09/04/22 13:27 Dose: 500 mg Omeprazole ([facility] 20 Mg [facility]) [facility] Last Admin: 09/05/22 08:17 Dose: 20 mg Ondansetron HCl (Ondansetron 4 Mg/2 Ml Vial) 4 mg IV Q4-6HP PRN; Protocol PRN Reason: Nausea And Vomiting Budesonide- Formoterol [ Symbicort] 160-4.5 Mcg Inhaler 2 dose INH BIDP PRN PRN Reason: asthma Polyethylene Glycol (Polyethylene Glycol 3350 17 Gm Packet) 17 gm PO DAILYP PRN PRN Reason: Constipation Last Admin: 09/04/22 13:23 Dose: 17 gm Senna (Sennosides 1 Tablet) 1 tab PO HSP PRN PRN Reason: Constipation Last Admin: 09/04/22 13:23 Dose: 1 tab Sodium Chloride (0.9 % Sodium Chloride 10 Ml Syringe) 10 ml IV Q8 [facility] Last Admin: 09/05/22 05:15 Dose: 10 ml Vancomycin HCl (Vancomycin Per Pharmacy) 1 order IV UD [facility]; Protocol A/P Assessment and plan (1) MRSA (methicillin resistant Staphylococcus aureus) septicemia: Assessment and plan: This is a 66y/o female PMHx morbid obesity, chronic opoid use disorder on Suboxone, DM2, COPD on home O2, hypothyroidism, recurrent UTIs, and HTN admitted on 08/29 after presenting with altered mental status, n/v/d, and back pain.On admission, febrile, tachypneic, tachycardic, hypotensive. On labs with marked leukocytosis, UA+, KWABENA, CXR+ LLL, CT A/P without contrast c/w mild pneumonia involving lingula and LLL and moderate perinephric fat surrounding both kidneys, collection of small bubbles in the subcutaneous fat of the pelvis. UCx growing E. coli, BCx growing MRSA on 08/29, 08/31, 09/02, and now still positive on 09/04. Pt is currently on IV Vancomycin (completed 7 days Ceftriaxone and 5 days Azithromycin). TTE study was technically difficult but no obvious valvular abnormalities were detected and there is no availability at the facility for SAILAJA. Brain MRI on 09/04 showing lesions concerning for septic emboli. Plan: - continue Vancomycin 1500mg IV q12hrs for now, monitor vanco trough levels to keep range between 15-20 - at this point, will recommend to transfer the patient to higher level of care for SAILAJA and CTS evaluation - will likely require 6 weeks IV antibiotics from negative blood cultures or if surgical procedure is planned - will follow up closely for eventualities - case discussed with primary care team Status: Acute (2) Cerebral septic emboli: Status: Acute (3) E. coli pyelonephritis: Status: Acute (4) Pneumonia involving left lung: Status: Acute Time Spent With Patient Time: Total time spent is greater than 50% in coordination of care (as documented) at patient's floor/unit and/or counseling patient: Subsequent: Total time with patient: 25 - 34 minutes Total Critical Care Time: 30 (mins) Attestation: Sarah Caldera MD QUALITY VTE Deep Vein Thrombosis/Pulmonary Embolism Present on Admission: No
[2022-09-05] MEDS: METHOCARBAMOL 500 MG TABLET PO PRN (12:21)
--- NOTE | 2022-09-05 14:02 | Discharge Summary ---
Discharge Provider Provider IMPORTANT FOLLOW-UP INFORMATION FOR PCP: Patient information: Note initiated : 09/05/22 at 1:57 pm Service Date, if different from initiated Date: [] Patient: Elicia Ricks a 66 y/o F admitted on 08/29/22 for n/v, diarrhea; sepsis, toxic metabolic . Chief Complaint: [] Date of admission: 08/29/22 16:18 Discharge date: 09/05/22 Consults: 08/29/22 Consult to Physician [CONS] Stat Comment: Consulting Provider: Jg Chamorro Reason For Exam: Physician to Consult 08/31/22 08:41 Consult to Physician [CONS] Routine Comment: Consulting Provider: Negro Xiong - ID Reason For Exam: Physician to Consult COURSE Hospital Course Hospital course: History of present illness: Ms. Ricks is a 66 year old F with a complex PMHx significant for polypharmacy, chronic opoid use disorder on Subonxone, DM2, COPDon home O2, hypothyroidism, and HTN who presents to the hospital w/ AMS. The patient was encephalopathic and hx was obtained second hard from chart review and from nursing. She was brought in via EMS. On arrival, she was HD stable but febrile. She was found to have grossly positive UA and infiltrate on CXR. The patient was also noted to have KWABENA. The hospitalist service was asked to admit her for further mx and evaluation of her toxic metabolic encephalopathy and sepsis. 08/31 The patient's pupils are pinpoint today. She remains altered. I spoke with the RN who states that she was quite agitated and then she had 2 visitors come in after that she became somnolent and calm. There is concerns that she ingested an illicit substance after the visit. 09/01 Patient is quite drowsy but does awaken easily to voice. No new complaints. Seems to be on room air this morning. Thrombocytopenia mildly worsened. The persistent leukocytosis slightly worse. Creatinine worsened. Repeat renal ultrasound pending urine studies pending IV fluids today. Hypomagnesemia and replace. Procalcitonin improving. Chemistry report incorrect. Just received updated lab report showing creati nine stable. And magnesium was not low. BC from 16 growing GPC, but pt had not been on Vanco up until that point. 09/02 Patient seems quite drowsy still but easily awakens and answers questions. No new complaints. She says she slept okay. Leukocytosis mildly improved But bandemia worse. Echo did not show any vegetations on TTE. Thrombocytopenia mildly better. Renal function better. 09/03 Patient still drowsy but seems to be a little bit more alert and is answering questions appropriately. Leukocytosis worse but bandemia has resolved. Repeat blood cultures on the are positive for gram-positive cocci. Serial blood cultures. Follow-up labs. 09/04 Feeling better today. More alert and awake. Feeling closer to her baseline although she does complain of increased back and leg pain which is her chronic pain, I have held the Robaxin and gabapentin for her Decreased LOC. Fever curve improving. Persistent leukocytosis but no more bandemia. Repeat blood cultures done this morning. 09/05 Patient states she slept well last night. Feeling better. Again more alert and awake. MRI brain showing scattered septic emboli. Working with physical therapy right now. Repeat blood cultures from the are positive. Repeat blood cultures in the morning. ID following. Persistent leukocytosis even though bandemia has resolved. Thrombocytopenia improved. Mild hyponatremia. Mild transaminitis. Case discussed with Dr. Fish at [facility] who graciously accepted care of the patient. Patient to be transported via ground transport. A: *CAP/Atelectasis: *Acute hypoxic respiratory failure: 2/2 above -now on room air *Bacteremia (MRSA): -09/04 BC (+) *Suspected Endocarditis: complicated by septic emboli to the brain -TTE no vegetations noted, will need SAILAJA outpt *multiple scattered small cerebral infarcts: likely septic emboli 2/2 above *UTI(E. coli),complicated: *Sepsis: 2/2 above -Leukocytosis persistent but bandemia resolved, fever curve continues to improve *Encephalopathy(drowsiness): much improved dnow *KWABENA on CKD III: resolved *Metabolic acidosis: Improved *Thrombocytopenia, acute: 2/2 above, improved *COPD(not on home O2): *chronic back/joint pain & neuropathy: on robaxin and silvina at home *Substance abuse: With methamphetamine (she states she "snorts" it) *HTN/HLD: *DM2 w/neuropathy: *Hypothyroidism: Continue home Synthroid *GERD: *Morbid obesity: BMI 46 *peripheral edema P: -ID recommends transfer to higher level of care for SAILAJA and CTS eval for persistent Bacteremia and septic emboli -Currently on Rocephin(FINISH ON 09/06), azithromycin(finished), Vancomycin -Needs SAILAJA and probable CTS eval Discharge diagnosis: MRSA bacteremia endocarditis pneumonia UTI septic emboli sepsis Secondary discharge diagnosis: Encephalopathy acute kidney injury on chronic metabolic acidosis thrombocytopenia COPD chronic pain substance abuse with methamphetamine hypertension diabetes hypothyroidism GERD morbid obesity edema Time Spent with Patient Time attestation: Total time spent providing and/or coordinating discharge services: Time spent: Greater than 30 minutes EXAM Constitutional Vitals: Temp Pulse Resp BP Pulse Ox O2 Del Method O2 Flow Rate 99.0 F 83 18 112/63 92 Room Air 0 09/05/22 12:28 09/05/22 12:28 09/05/22 12:28 09/05/22 12:28 09/05/22 12:28 09/05/22 12:28 09/04/22 18:01 Discharge Data Data Completed and Pending Labs on day of discharge: Labs from last 24 hours 09/05/22 09/05/22 09/04/22 05:46 05:46 05:31 WBC 21.7 H RBC 3.73 Hgb 10.9 L Hct 35.1 MCV 94.1 MCH 29.2 MCHC 31.1 RDW 15.1 H Plt Count 130 L MPV 10.2 Immature Gran % (Auto) 12.7 H Neut % (Auto) 68.7 Lymph % (Auto) 7.5 L Whiteside % (Auto) 8.9 Eos % (Auto) 1.6 Baso % (Auto) 0.6 Lymph # (Auto) 1.64 Whiteside # (Auto) 1.93 H Eos # (Auto) 0.34 Baso # (Auto) 0.14 Immature Gran # 2.77 H Absolute Neutrophils 14.91 H Sodium 132 L Potassium 4.6 Chloride 102 Carbon Dioxide 22 Anion Gap 8.0 BUN 27 H Creatinine 0.9 GFR Calculation 67 Glucose 101 Uric Acid 5.0 Calcium 7.8 L Phosphorus 3.4 Magnesium 2.1 Total Bilirubin 0.7 Direct Bilirubin 0.4 H GGT 295 H AST 52 H ALT 34 Alkaline Phosphatase 161 H Lactate Dehydrogenase 405 H Total Protein 5.3 L Albumin 2.1 L Globulin 3.2 Albumin/Globulin Ratio 0.7 L Triglycerides 199 H 185 H Cholesterol 132 LDL Cholesterol, Calc 79 Non-HDL Cholesterol 115 HDL Cholesterol 17 L U Amphetamines Confirm 08/29/22 11:52 WBC RBC Hgb Hct MCV MCH MCHC RDW Plt Count MPV Immature Gran % (Auto) Neut % (Auto) Lymph % (Auto) Whiteside % (Auto) Eos % (Auto) Baso % (Auto) Lymph # (Auto) Whiteside # (Auto) Eos # (Auto) Baso # (Auto) Immature Gran # Absolute Neutrophils Sodium Potassium Chloride Carbon Dioxide Anion Gap BUN Creatinine GFR Calculation Glucose Uric Acid Calcium Phosphorus Magnesium Total Bilirubin Direct Bilirubin GGT AST ALT Alkaline Phosphatase Lactate Dehydrogenase Total Protein Albumin Globulin Albumin/Globulin Ratio Triglycerides Cholesterol LDL Cholesterol, Calc Non-HDL Cholesterol HDL Cholesterol U Amphetamines Confirm Positive Preliminary micro results at discharge 09/02/22 05:10 Blood Culture - Preliminary Blood Methicillin resistant s.aureus 09/04/22 05:25 Blood Culture - Preliminary Blood Staphylococcus aureus 09/04/22 05:18 Blood Culture - Preliminary Blood Staphylococcus aureus 08/31/22 08:48 Blood Culture - Preliminary Blood Staphylococcus aureus 09/02/22 05:19 Blood Culture - Preliminary Blood Staphylococcus aureus Discharge Plan Patient/Caregiver Discharge Instructions Prescriptions: No Action atorvastatin 40 mg tablet 40 mg PO HS Patient Comments: TAKE 1 TABLET BY MOUTH EVERY DAY FOR cholesterol due FOR FOLLOW UP in march 2021 gabapentin 600 mg tablet 600 mg PO BID Patient Comments: TAKE 1 TABLET BY MOUTH TWICE DAILY FOR chonic BACK pain, due FOR FOLLOW UP in march 2021 albuterol sulfate 2.5 mg /3 mL (0.083 %) solution for nebulization 2.5 mg inhalation PRN PRN (Reason: Shortness Of Breath) Patient Comments: INHALE 1 vial BY MOUTH via NEBULIZER 3 TIMES DAILY NEEDED FOR ASTHMA, due FOR FOLLOW UP in march 2021 cetirizine 10 mg tablet 10 mg PO HS Patient Comments: TAKE 1 TABLET BY MOUTH EVERY DAY meclizine 25 mg tablet 25 mg PO TIDP PRN (Reason: Dizziness) Patient Comments: TAKE 1 TABLET BY MOUTH 3 TIMES DAILY NEEDED levothyroxine 50 mcg tablet 50 mcg PO DAILY Patient Comments: TAKE 1 TABLET BY MOUTH ONCE DAILY FOR thyroid due FOR FOLLOW UP in December 2021 omeprazole 20 mg capsule,delayed release(DR/EC) 20 mg PO BIDAC Patient Comments: TAKE 1 CAPSULE BY MOUTH EVERY DAY BEFORE a meal FOR gerd, due FOR FOLLOW UP in march 2021 montelukast 10 mg tablet 10 mg PO HS Patient Comments: TAKE 1 TABLET BY MOUTH EVERY EVENING spironolactone 50 mg tablet 50 mg PO QDAY buprenorphine-naloxone 2-0.5 mg tablet, sublingual 1 tab sublingual TID diclofenac sodium 1 % gel 2 g topical QID Victoza 3-Kory 0.6 mg/0.1 mL (18 mg/3 mL) pen injector 1.8 mg subcut QDAY Jardiance 10 mg tablet 10 mg PO QDAY methocarbamol 500 mg Tablet 500 mg PO QID aspirin [Adult Aspirin EC Low Strength] 81 mg Tablet,Delayed Release (Dr/Ec) 81 mg PO DAILY lisinopril 10 mg tablet 10 mg PO QDAY magnesium oxide 500 mg Tablet 500 mg PO QDAY fluticasone propionate 50 mcg/actuation spray,suspension 2 spray intranasal QDAY budesonide-formoterol [Symbicort] 160-4.5 mcg/actuation HFA aerosol inhaler 2 puff INHALATION BIDP PRN (Reason: asthma) Follow Up Plan Patient Disposition: [facility] Prognosis: Undetermined Overall status at discharge: patient is not back to baseline Discharge Orders: Discharge Order (Routine); Ordered 09/05/22 Ordered By: Zeyad Leblanc [facility] VTE Deep Vein Thrombosis/Pulmonary Embolism Present on Admission: No
[2022-09-05] MEDS ORDERED: ENOXAPARIN 30 MG/0.3 ML SYRINGE SQ SCH (21:00)
== END 2022-09-05 17:39 | disposition short-term general hospital (02) | DRG 871 ==
LOC: ED 10:34 → ICU 16:18
PROVIDERS: ADMIT Student in an Organized Health Care Education/Training Program; ATTEND Internal Medicine